=== PATIENT | female | born 1940 | race Caucasian/White ===

== ENCOUNTER 2016-07-11 19:39 | Emergency (ER) | payer OTHER ==
[2016-07-11 19:56] VITALS: BP 148/64; PULSE 93; TEMP 100.2; BMI 27.1
[2016-07-11] MEDS ORDERED: predniSONE 20 MG TABLET (UD) ONE (20:31)
[2016-07-11] MEDS ORDERED: IBUPROFEN 600 MG TABLET (FP) PO ONE ×2 (20:31→20:43)
[2016-07-11] MEDS ORDERED: diphenhydrAMINE HCL 25 MG CAPSULE (FP) PO ONE (20:31)
[2016-07-11] MEDS ORDERED: predniSONE 20 MG TABLET (UD) PO ONE (20:31)
--- NOTE | 2016-07-11 20:39 | PDOC ---
History of Present Illness - General Chief Complaint: Allergic Reaction Stated Complaint: ALLERGIC REACTION Time Seen by Provider: 07/11/16 20:24 History Source: Patient Exam Limitations: No Limitations - History of Present Illness Initial Comments: 07/11/16 20:33 76 yr female with hives to face, neck chest and back started yesterday after cleaning in the basement. Pt has no diff breathing or swallowing . Pt took benadryl 25mg at 6pm with no relief. Pt denies any food allergies , change in soaps or medications. Past History - Past Medical History Allergies/Adverse Reactions: Allergies Allergy/AdvReac Type Severity Reaction Status Date / Time No Known Allergies Allergy Verified 07/11/16 19:56 Home Medications: Ambulatory Orders Naproxen [Naprosyn -] 500 mg PO BID #30 tablet 08/13/13 Oxycodone HCl/Acetaminophen [Percocet 5-325 mg Tablet -] 1 tab PO Q6H #10 tablet 08/13/13 Unobtainable Home Med List 08/13/13 Diphenhydramine HCl [Benadryl Capsule -] 50 mg PO Q12H PRN #20 capsule 07/11/16 Prednisone [Deltasone -] 20 mg PO DAILY #7 tablet 07/11/16 Ranitidine [Zantac -] 150 mg PO DAILY #14 tablet 07/11/16 Diabetes: Yes GI Disorders: Yes (H PYLORI) HTN: Yes Hypercholesterolemia: Yes - Psycho/Social/Smoking Cessation Hx Anxiety: No Suicidal Ideation: No Smoking History: Never smoked Have you smoked in the past 12 months: No Information on smoking cessation initiated: No Hx Alcohol Use: No Drug/Substance Use Hx: No Substance Use Type: None Review of Systems - Review of Systems Able to Perform ROS?: Yes Is the patient limited German proficient: No Constitutional: No: Symptoms Reported HEENTM: No: Symptoms Reported Respiratory: No: Symptoms reported Cardiac (ROS): No: Symptoms Reported ABD/GI: No: Symptoms Reported : No: Symptoms Reported Musculoskeletal: No: Symptoms Reported Integumentary: Yes: See HPI, Pruritus, Rash *Physical Exam - Vital Signs Last Vital Signs Temp Pulse Resp BP Pulse Ox 100.2 F H 93 H 19 148/64 98 07/11/16 19:53 07/11/16 19:53 07/11/16 19:53 07/11/16 19:53 07/11/16 19:53 - Physical Exam General Appearance: Yes: Nourished, Appropriately Dressed HEENT: positive: EOMI, WES, Normal ENT Inspection, TMs Normal, Pharynx Normal Neck: positive: Supple Respiratory/Chest: positive: Lungs Clear, Normal Breath Sounds Cardiovascular: positive: Regular Rhythm, Regular Rate Gastrointestinal/Abdominal: positive: Normal Bowel Sounds, Soft Musculoskeletal: positive: Normal Inspection Extremity: positive: Normal Capillary Refill, Normal Inspection, Normal Range of Motion Integumentary: positive: Normal Color, Hives, Rash (face, neck, chest and back with hives raised red ) Neurologic: positive: Fully Oriented, Alert, Normal Mood/Affect, Normal Response , Motor Strength 5/5 Medical Decision Making - Medical Decision Making 07/11/16 22:49 cc: rash since last night itchy pt denies fever , has low grade here in ER denies feeling flu like or nausea no SOB or diff swallowing will give prednisone, benadryl strict follow up with PMD on THURSDAY return if worse avoid the heat , the past 2 days have been in the 90's pt has been outside making the rash worse. I have instructed pt to take cool shower apply cool compresses to her face. family with the pt understand the plan and all questions asked and answered. *DC/Admit/Observation/Transfer Diagnosis at time of Disposition: Hives - Discharge Dispostion Disposition: HOME Condition at time of disposition: Improved - Prescriptions Prescriptions: Diphenhydramine HCl [Benadryl Capsule -] 50 mg PO Q12H PRN #20 capsule PRN Reason: hives Prednisone [Deltasone -] 20 mg PO DAILY #7 tablet Ranitidine [Zantac -] 150 mg PO DAILY #14 tablet - Referrals Referrals: Jessica Carranza MD [Staff Physician] - - Patient Instructions Additional Instructions: follow with your doctor on THURSDAY for follow up visit Return to ER if any worse cool water to bathe avoid heat take the prescribed medication as directed
== END 2016-07-11 21:03 | disposition home or self-care (01) ==
LOC: JERFT 19:39 → SUPCPDRO 19:39 → JERFT 21:03
DX: L50.9 Urticaria, unspecified (principal); E78.00 Pure hypercholesterolemia, unspecified; E11.9 Type 2 diabetes mellitus without complications
CPT/HCPCS: 99281-25

== ENCOUNTER 2018-05-02 15:59 | Inpatient (IN) | payer OTHER ==
[2018-05-02 17:02] LABS: BASO % 0.2 % (0-2.0); EOS % 0.1 % (0-4.5); HEMATOCRIT 36.6 % (32.4-45.2); HEMOGLOBIN 12.2 GM/dL (10.7-15.3); LYMPH % 16.6 % (8-40); MCH 29.1 pg (25.7-33.7); MCHC 33.3 g/dl (32.0-36.0); MEAN CELL VOLUME 87.2 fl (80-96); MEAN PLT VOLUME 9.4 fl (7.5-11.1); MONO % 5.2 % (3.8-10.2); NEUT % 77.9 % (42.8-82.8); PLATELET COUNT 421 K/MM3 (134-434); RDW 15.5 % (11.6-15.6); WHITE BLOOD COUNT 12.9 K/mm3 (4.0-10.0)
[2018-05-02 17:15] LABS: PROTHROMBIN TIME (PATIENT) 11.8 SEC (9.7-13.0)
[2018-05-02 17:18] LABS: ACTIVATED PTT 31.2 SECONDS (25.2-36.5)
[2018-05-02 18:02] LABS: ALBUMIN 4.1 g/dl (3.4-5.0); ALK PHOS 52 U/L (45-117); ANION GAP 20 MMOL/L (8-16); BILIRUBIN,TOTAL 0.6 mg/dL (0.2-1); BLOOD UREA NITROGEN 70 mg/dL (7-18); CALCIUM 8.7 mg/dL (8.5-10.1); CHLORIDE 107 mmol/L (98-107); CO2 15 mmol/L (21-32); CREATININE 7.1 mg/dL (0.55-1.3); GLUCOSE,RANDOM 78 mg/dL (74-106); SGOT/AST 16 U/L (15-37); SGPT/ALT 23 U/L (13-61); SODIUM 142 mmol/L (136-145); TOT PROT 8.2 g/dl (6.4-8.2)
--- NOTE | 2018-05-02 18:05 | PDOC ---
History of Present Illness - General Chief Complaint: Revisit, Lab Variance Stated Complaint: ELECTROLITES HIGH Time Seen by Provider: 05/02/18 16:10 - History of Present Illness Initial Comments: 05/02/18 18:43 78 F with pmh DM, HTN, HLD and anemia presenting to ED for abnormal lab values. Pt was at [facility] today for feelings lethargic with bodyaches x 3 days. Also endorses an episode of N+V last night after attempting to eat/drink. Denies abdominal pain. Denies CP/SOB. Denies F/C. Pt went to [facility] today and had labs that showed K:5.8 Bun: 65 Creat: 6.4 wbc: 12.4 No recent change in medication or additions. No recent trauma, or known infection. Has had limited amount of urine and stool produced due to the fact that she hasn 't been eating or drinking at all for the past week. Past History - Past Medical History Allergies/Adverse Reactions: Allergies Allergy/AdvReac Type Severity Reaction Status Date / Time No Known Allergies Allergy Verified 05/02/18 16:08 Home Medications: Ambulatory Orders Alendronate Sodium [Binosto] 70 mg PO WEEKLY 05/02/18 Aspirin [Adult Aspirin Regimen] 81 mg PO DAILY 05/02/18 Atorvastatin Calcium [Lipitor] 20 mg PO HS 05/02/18 Cholecalciferol (Vitamin D3) [D-2000] 2,000 unit PO DAILY 05/02/18 Dapagliflozin Propanediol [Farxiga] 10 mg PO DAILY 05/02/18 Ferrous Sulfate [Feosol] 325 mg PO DAILY 05/02/18 Fluticasone Prop 0.05% Nasal [Flonase -] 1 - 2 spray NS BID 05/02/18 Glyburide/Metformin HCl [Glyburide-Metformin 5-500 mg] 2 tab PO BID 05/02/18 [place]-3 Fatty Acids/Fish Oil [Fish Oil 1,000 mg Capsule] 1 each PO DAILY Pantoprazole Sodium [Protonix] 40 mg PO DAILY 05/02/18 Sitagliptin Phosphate [Januvia] 100 mg PO DAILY 05/02/18 Valsartan/Hydrochlorothiazide [Valsartan-Hctz 80-12.5 mg Tab] 1 each PO DAILY COPD: No Diabetes: Yes GI Disorders: Yes (H PYLORI) HTN: Yes Hypercholesterolemia: Yes - Suicide/Smoking/Psychosocial Hx Smoking History: Never smoked Have you smoked in the past 12 months: No Hx Alcohol Use: No Drug/Substance Use Hx: No Substance Use Type: None Review of Systems - Review of Systems Able to Perform ROS?: Yes Is the patient limited Lao proficient: No Constitutional: Yes: See HPI HEENTM: No: Symptoms Reported Respiratory: No: Symptoms reported Cardiac (ROS): No: Symptoms Reported ABD/GI: Yes: See HPI : No: Symptoms Reported Musculoskeletal: No: Symptoms Reported Integumentary: No: Symptoms Reported Neurological: No: Symptoms reported All Other Systems: Reviewed and Negative *Physical Exam - Vital Signs Last Vital Signs Temp Pulse Resp BP Pulse Ox 98 F 95 H 18 98/52 L 100 05/02/18 16:02 05/02/18 16:02 05/02/18 16:02 05/02/18 16:02 05/02/18 16:02 - Physical Exam General Appearance: Yes: Nourished, Appropriately Dressed, Apparent Distress HEENT: positive: EOMI, WES, Normal ENT Inspection Respiratory/Chest: positive: Lungs Clear, Normal Breath Sounds. negative: Chest Tender, Respiratory Distress Cardiovascular: positive: Regular Rhythm, S1, S2, Tachycardia Gastrointestinal/Abdominal: positive: Normal Bowel Sounds, Soft, Protuberent. negative: Tender Musculoskeletal: positive: Normal Inspection. negative: CVA Tenderness Extremity: positive: Normal Capillary Refill, Normal Inspection, Normal Range of Motion Integumentary: positive: Normal Color, Dry, Warm Neurologic: positive: Fully Oriented, Alert, Normal Mood/Affect, Normal Response , Motor Strength 5/5 Moderate Sedation - Procedure Monitoring Vital Signs: Procedure Monitoring Vital Signs Temperature 98 F 05/02/18 16:02 Pulse Rate 95 H 05/02/18 16:02 Respiratory Rate 18 05/02/18 16:02 Blood Pressure 98/52 L 05/02/18 16:02 O2 Sat by Pulse Oximetry (%) 100 05/02/18 16:02 ED Treatment Course - LABORATORY CBC & Chemistry Diagram: 05/02/18 16:50 05/02/18 16:50 - ADDITIONAL ORDERS Additional order review: Laboratory Results 05/02/18 05/02/18 16:50 16:50 PT with INR 11.80 INR 1.00 PTT (Actin FS) 31.2 Sodium 142 Chloride 107 Carbon Dioxide 15 L Anion Gap 20 H BUN 70 H Creatinine 7.1 H Creat Clearance w eGFR 5.56 Random Glucose 78 Calcium 8.7 Total Bilirubin 0.6 AST 16 ALT 23 Alkaline Phosphatase 52 Creatine Kinase 88 Troponin I < 0.02 Total Protein 8.2 Albumin 4.1 05/02/18 16:50 RBC 4.20 MCV 87.2 MCHC 33.3 RDW 15.5 D MPV 9.4 Neutrophils % 77.9 Lymphocytes % 16.6 Monocytes % 5.2 Eosinophils % 0.1 Basophils % 0.2 Medical Decision Making - Medical Decision Making 05/02/18 18:55 Potassium, creatinine and BUn even more elevated than clinic results from earlier today. EKG: Normal sinus rhythm, possible left atrial enlargement. Unknown source of AUGUSTINE: medication vs infection vs diabetes/metabolic? 05/02/18 19:15 UTI present, treating with Ceftriaxone, fluids. Even though ekg is unremarkable, we will give calcium gluconate and insulin with fluids. Will obtain renal us Will admit to observation med surg to investigate source of augustine Patient signed out to Dr. Ordonez *DC/Admit/Observation/Transfer Diagnosis at time of Disposition: AUGUSTINE (acute kidney injury) - Referrals - Patient Instructions - Post Discharge Activity
[2018-05-02 18:19] LABS: URINE APPEARANCE SLCLOUDY; URINE BILIRUBIN NEGATIVE (<2.0 mg/dL); URINE COLOR STRAW; URINE GLUCOSE (UA) NEGATIVE (NEGATIVE); URINE KETONE NEGATIVE (NEGATIVE); URINE LEUK ESTERASE 2+ (NEGATIVE); URINE NITRITE NEGATIVE (NEGATIVE); URINE PROTEIN 2+ (NEGATIVE); URINE UROBILINOGEN NEGATIVE mg/dL (0.2-1.0)
[2018-05-02] MEDS ORDERED: SODIUM CHLORIDE 1,000 ML IV STA (18:20)
[2018-05-02 18:24] LABS: EPI CELLS RARE /HPF (FEW)
[2018-05-02] MEDS ORDERED: CALCIUM GLUCONATE 10% - 1,000 MG/10 ML VIAL IVPUSH ONE (18:34)
[2018-05-02 18:35] LABS: POTASSIUM 6.1 mmol/L (3.5-5.1)
--- NOTE | 2018-05-02 18:35 | PDOC ---
Attending Attestation - Resident Resident Name: LaiRigo - ED Attending Attestation I have performed the following: I have examined & evaluated the patient, The case was reviewed & discussed with the resident, I agree w/resident's findings & plan, Exceptions are as noted - HPI HPI: 05/02/18 18:32 78 F with h/o DM, HTN, HLD presenting to ED for abnormal lab values. Pt was at [facility] today for "influenza like symptoms". She states that she has been feeling lethargic with bodyaches x 3 days. Also endorses an episode of N+V last night. Denies abdominal pain. Denies CP/SOB. Denies F/C. Pt went to [facility] today and had labs that showed a Cr of 6.0. Pt has no h/o kidney disease. - Physicial Exam PE: 05/02/18 18:33 GENERAL: Awake, alert, and fully oriented, in no acute distress. HEAD: No signs of trauma EYES: PERRLA, EOMI, sclera anicteric, conjunctiva clear ENT: Auricles normal inspection, hearing grossly normal, nares patent, oropharynx clear without exudates. Moist mucosa NECK: Nontender, no stepoffs, Normal ROM, supple, no lymphadenopathy, JVD, or masses LUNGS: Breath sounds equal, clear to auscultation bilaterally. No wheezes, and no crackles HEART: Regular rate and rhythm, normal S1 and S2, no murmurs, rubs or gallops ABDOMEN: Soft, nontender, normoactive bowel sounds. No guarding, no rebound. No masses EXTREMITIES: Normal range of motion, no edema. No clubbing or cyanosis. No cords, erythema, or tenderness NEUROLOGICAL: Cranial nerves II through XII intact. 5/5 strength and sensation in all extremities, Normal speech, normal gait, normal cerebellar function SKIN: Warm, Dry, normal turgor, no rashes or lesions noted. - Medical Decision Making 05/02/18 18:33 78 F with weakness, bodyaches, found to have new renal failure. Pt with no h/o kidney disease. Has not taken any new medications. - Labs, UA - EKG - IVF - Renal c/s 05/02/18 18:46 Labs notable for Cr 7 K 6.1 EKG without peaked T waves Calcium gluc, insulin, D50 ordered Will consult renal, admit to hospitalist
[2018-05-02] MEDS ORDERED: INSULIN REGULAR HUMAN 100 UNITS/ML *VIAL IVPUSH ONE (18:41)
[2018-05-02] MEDS ORDERED: DEXTROSE 50%-WATER - 25 GM/50 ML VIAL IVPUSH ONE (18:46)
[2018-05-02] MEDS ORDERED: DEXTROSE 50%-WATER - 25 GM/50 ML VIAL ONE (18:47)
[2018-05-02] MEDS ORDERED: CALCIUM GLUCONATE 10% - 1,000 MG/10 ML VIAL ONE (18:48)
[2018-05-02] MEDS ORDERED: INSULIN REGULAR HUMAN 100 UNITS/ML *VIAL ONE (18:48)
[2018-05-02] MEDS ORDERED: CEFTRIAXONE 1 GM/50 ML BAG ONE (18:48)
--- NOTE | 2018-05-02 19:35 | HP ---
CHIEF COMPLAINT: malaise, failure to thrive PCP: ludy HISTORY OF PRESENT ILLNESS: 78 F with presents to hospital for abnormal lab values. Was seen at [facility] for "influenza like symptoms". +lethargy, loss of appetite, bodyaches. Also endorses an episode of N+V last night. Denies CP/SOB. Labs showed Cr of 6.0. Pt has no h/o kidney disease. ER course was notable for: (1) EKG (2) IV fluid (3) Recent Travel: no PAST MEDICAL HISTORY: DM, HTN, HLD PAST SURGICAL HISTORY: denied Social History: Smoking:no Alcohol:no Drugs: no Family History: parents with heart disease Allergies No Known Allergies Allergy (Verified 05/02/18 16:08) HOME MEDICATIONS: Home Medications Medication Instructions Recorded Alendronate Sodium [Binosto] 70 mg PO WEEKLY 05/02/18 Aspirin [Adult Aspirin Regimen] 81 mg PO DAILY 05/02/18 Atorvastatin Calcium [Lipitor] 20 mg PO HS 05/02/18 Cholecalciferol (Vitamin D3) 2,000 unit PO DAILY 05/02/18 [D-2000] Dapagliflozin Propanediol [Farxiga] 10 mg PO DAILY 05/02/18 Ferrous Sulfate [Feosol] 325 mg PO DAILY 05/02/18 Fluticasone Prop 0.05% Nasal 1 - 2 spray NS BID 05/02/18 [Flonase -] Glyburide/Metformin HCl 2 tab PO BID 05/02/18 [Glyburide-Metformin 5-500 mg] Section-3 Fatty Acids/Fish Oil [Fish 1 each PO DAILY 05/02/18 Oil 1,000 mg Capsule] Pantoprazole Sodium [Protonix] 40 mg PO DAILY 05/02/18 Sitagliptin Phosphate [Januvia] 100 mg PO DAILY 05/02/18 Valsartan/Hydrochlorothiazide 1 each PO DAILY 05/02/18 [Valsartan-Hctz 80-12.5 mg Tab] REVIEW OF SYSTEMS CONSTITUTIONAL: Absent: fever, chills, diaphoresis, weight change Present- , generalized weakness, malaise, loss of appetite HEENT: Absent: rhinorrhea, nasal congestion, throat pain, throat swelling, difficulty swallowing, mouth swelling, ear pain, eye pain, visual changes CARDIOVASCULAR: Absent: chest pain, syncope, palpitations, irregular heart rate, lightheadedness , peripheral edema RESPIRATORY: Absent: cough, shortness of breath, dyspnea with exertion, orthopnea, wheezing, stridor, hemoptysis GASTROINTESTINAL: Absent: abdominal pain, abdominal distension,diarrhea, constipation, melena, hematochezia present- nausea, vomiting, GENITOURINARY: Absent: dysuria, frequency, urgency, hesitancy, hematuria, flank pain, genital pain MUSCULOSKELETAL: Absent: myalgia, arthralgia, joint swelling, back pain, neck pain SKIN: Absent: rash, itching, pallor HEMATOLOGIC/IMMUNOLOGIC: Absent: easy bleeding, easy bruising, lymphadenopathy, frequent infections ENDOCRINE: Absent: unexplained weight gain, unexplained weight loss, heat intolerance, cold intolerance NEUROLOGIC: Absent: headache, focal weakness or paresthesias, dizziness, unsteady gait, seizure, mental status changes, bladder or bowel incontinence PSYCHIATRIC: Absent: anxiety, depression, suicidal or homicidal ideation, hallucinations. PHYSICAL EXAMINATION Vital Signs - 24 hr 05/02/18 05/02/18 16:02 18:36 Temperature 98 F Pulse Rate 95 H Pulse Rate [ 87 Left Radial] Respiratory 18 Rate Blood Pressure 98/52 L Blood Pressure 166/80 [Left Arm] O2 Sat by Pulse 100 99 Oximetry (%) GENERAL: Awake, alert, and fully oriented, obese, nontoxic appearing HEAD: Normal with no signs of trauma. EYES: Pupils equal, round and reactive to light, extraocular movements intact, sclera anicteric, conjunctiva clear. No lid lag. EARS, NOSE, THROAT: Ears normal, nares patent, oropharynx clear without exudates. Moist mucous membranes. NECK: Normal range of motion, supple without lymphadenopathy, JVD, or masses. LUNGS: Breath sounds equal, clear to auscultation bilaterally. No wheezes, and no crackles. No accessory muscle use. HEART: Regular rate and rhythm, normal S1 and S2 without murmur, rub or gallop. ABDOMEN: Soft, nontender, not distended, normoactive bowel sounds, no guarding, no rebound, no masses. No hepatomegaly or splenomegaly. MUSCULOSKELETAL: Normal range of motion at all joints. No bony deformities or tenderness. No CVA tenderness. UPPER EXTREMITIES: 2+ pulses, warm, well-perfused. No cyanosis. No clubbing. No peripheral edema. LOWER EXTREMITIES: 2+ pulses, warm, well-perfused. No calf tenderness. No peripheral edema. NEUROLOGICAL: Cranial nerves II-XII intact. Normal speech. Normal gait. PSYCHIATRIC: Cooperative. Good eye contact. Appropriate mood and affect. SKIN: Warm, dry, normal turgor, no rashes or lesions noted, normal capillary refill. Laboratory Results - last 24 hr 05/02/18 05/02/18 05/02/18 16:50 16:50 16:50 WBC 12.9 H RBC 4.20 Hgb 12.2 Hct 36.6 MCV 87.2 MCH 29.1 MCHC 33.3 RDW 15.5 D Plt Count 421 D MPV 9.4 Absolute Neuts (auto) 10.0 H Neutrophils % 77.9 Lymphocytes % 16.6 Monocytes % 5.2 Eosinophils % 0.1 Basophils % 0.2 Nucleated RBC % 0 PT with INR 11.80 INR 1.00 PTT (Actin FS) 31.2 Sodium 142 Potassium 6.1 H* Chloride 107 Carbon Dioxide 15 L Anion Gap 20 H BUN 70 H Creatinine 7.1 H Creat Clearance w eGFR 5.56 POC Glucometer Random Glucose 78 Calcium 8.7 Total Bilirubin 0.6 AST 16 ALT 23 Alkaline Phosphatase 52 Creatine Kinase 88 Troponin I < 0.02 Total Protein 8.2 Albumin 4.1 Urine Color Urine Appearance Urine pH Ur Specific Mallory Urine Protein Urine Glucose (UA) Urine Ketones Urine Blood Urine Nitrite Urine Bilirubin Urine Urobilinogen Ur Leukocyte Esterase Urine WBC (Auto) Urine RBC (Auto) Ur Epithelial Cells 05/02/18 05/02/18 17:21 18:55 WBC RBC Hgb Hct MCV MCH MCHC RDW Plt Count MPV Absolute Neuts (auto) Neutrophils % Lymphocytes % Monocytes % Eosinophils % Basophils % Nucleated RBC % PT with INR INR PTT (Actin FS) Sodium Potassium Chloride Carbon Dioxide Anion Gap BUN Creatinine Creat Clearance w eGFR POC Glucometer 75 Random Glucose Calcium Total Bilirubin AST ALT Alkaline Phosphatase Creatine Kinase Troponin I Total Protein Albumin Urine Color Straw Urine Appearance Slcloudy Urine pH 5.0 Ur Specific Mallory 1.010 Urine Protein 2+ H Urine Glucose (UA) Negative Urine Ketones Negative Urine Blood 1+ H Urine Nitrite Negative Urine Bilirubin Negative Urine Urobilinogen Negative Ur Leukocyte Esterase 2+ H Urine WBC (Auto) 27 Urine RBC (Auto) 2 Ur Epithelial Cells Rare Imaging reviewed ekg with no evidence of hyperkalemia ASSESSMENT/PLAN: #Acute Renal Failure - uncertain cause -admit to telemetry -send urine lytes -urine osm -serum osm -i/o -daily weights -chatterjee catheter -avoid nephrotoxins -renal u/s -renal consult -IV fluid hydration -bed rest -fall precautions #Hyperkalemia - likely secondary to acute renal failure, no ekg changes -kayexale PO -monitor on security monitor -insulin sc -D50 IV -repeat potassium #DM -novolog sliding scale -diabetic diet -a1c #HTN- -hold ARB due to renal failure #HLD -atorvastatin #DVT ppx- heparin sc Visit type - Emergency Visit Emergency Visit: Yes ED Registration Date: 05/02/18 Care time: The patient presented to the Emergency Department on the above date and was hospitalized for further evaluation of their emergent condition. - New Patient This patient is new to me today: Yes Date on this admission: 05/03/18 - Critical Care Critical Care patient: No
[2018-05-02] MEDS ORDERED: SODIUM CHLORIDE 1,000 ML IV SCH (19:45)
[2018-05-02] MEDS ORDERED: PATIENT'S OWN MEDICATION (NON-FORMULARY) (Alendronate Sodium [Binosto] 70 MG) PO SCH (19:45)
[2018-05-02] MEDS: INSULIN SLIDING SCALE (NOVOLOG) 1 VIAL SQ SCH (22:00)
[2018-05-02 22:13] LABS: ALBUMIN 3.5 g/dl (3.4-5.0); ALK PHOS 44 U/L (45-117); ANION GAP 17 MMOL/L (8-16); BILIRUBIN,TOTAL 0.7 mg/dL (0.2-1); BLOOD UREA NITROGEN 69 mg/dL (7-18); CALCIUM 8.9 mg/dL (8.5-10.1); CHLORIDE 104 mmol/L (98-107); CO2 14 mmol/L (21-32); CREATININE 7.1 mg/dL (0.55-1.3); GLUCOSE,RANDOM 68 mg/dL (74-106); N-TERMINAL BNP 4738.8 pg/ml (5-450); POTASSIUM 5.9 mmol/L (3.5-5.1); SGOT/AST 13 U/L (15-37); SGPT/ALT 20 U/L (13-61); SODIUM 134 mmol/L (136-145); TOT PROT 7.1 g/dl (6.4-8.2)
[2018-05-02] MEDS ORDERED: HEPARIN NA (PORCINE) 5,000 UNITS/ML 1ML VIAL ONE (22:26)
[2018-05-02] MEDS ORDERED: ATORVASTATIN CA 10 MG TABLET (FP) ONE (22:26)
[2018-05-02] MEDS: HEPARIN NA (PORCINE) 5,000 UNITS/ML 1ML VIAL SQ SCH (22:29)
[2018-05-02] MEDS: ATORVASTATIN CA 20 MG TABLET (FP) PO SCH (22:29)
[2018-05-03] MEDS ORDERED: DEXTROSE 50%-WATER - 25 GM/50 ML VIAL IVPUSH ONE ×4 (00:06→12:54)
[2018-05-03] MEDS ORDERED: SODIUM POLYSTYRENE SULFONATE 15 GM/60 ML BOTTLE PO ONE ×2 (00:07→10:28)
[2018-05-03] MEDS ORDERED: Insulin (LOG) Aspart 100 UNITS/ML VIAL IV ONE ×2 (00:31→06:22)
[2018-05-03] MEDS ORDERED: DEXTROSE 50%-WATER - 25 GM/50 ML VIAL ONE ×4 (01:05→13:05)
[2018-05-03] MEDS ORDERED: SODIUM POLYSTYRENE SULFONATE 15 GM/60 ML BOTTLE ONE ×2 (01:06→10:45)
[2018-05-03] MEDS ORDERED: INSULIN (NOVOLOG) ASPART 100 UNITS/ML 10ML VIAL ONE ×2 (01:06→06:47)
[2018-05-03] MEDS ORDERED: SODIUM CHLORIDE 0.45% IV SCH (01:45)
[2018-05-03] MEDS ORDERED: SODIUM BICARBONATE 8.4% IV SCH (01:45)
[2018-05-03] MEDS ORDERED: SODIUM CHLORIDE 0.45% 1,000 ML with SODIUM BICARBONATE 8.4% - 50 MEQ IV SCH (02:15)
[2018-05-03 05:44] LABS: BASO % 0.3 % (0-2.0); HEMATOCRIT 34.2 % (32.4-45.2); HEMOGLOBIN 11.3 GM/dL (10.7-15.3); LYMPH % 11.6 % (8-40); MCH 28.6 pg (25.7-33.7); MCHC 33.1 g/dl (32.0-36.0); MEAN CELL VOLUME 86.2 fl (80-96); MEAN PLT VOLUME 9.1 fl (7.5-11.1); NEUT % 83.1 % (42.8-82.8); PLATELET COUNT 433 K/MM3 (134-434); RBC 3.97 M/mm3 (3.60-5.2); RDW 15.6 % (11.6-15.6); WHITE BLOOD COUNT 12.3 K/mm3 (4.0-10.0)
[2018-05-03 06:10] LABS: ALBUMIN 3.4 g/dl (3.4-5.0); ALK PHOS 46 U/L (45-117); ANION GAP 17 MMOL/L (8-16); BILIRUBIN,TOTAL 0.6 mg/dL (0.2-1); BLOOD UREA NITROGEN 77 mg/dL (7-18); CALCIUM 9.1 mg/dL (8.5-10.1); CHLORIDE 104 mmol/L (98-107); CO2 14 mmol/L (21-32); GLUCOSE,RANDOM 101 mg/dL (74-106); MAGNESIUM 2.5 mg/dL (1.8-2.4); PHOSPHOROUS 5.8 mg/dL (2.5-4.9); SGOT/AST 13 U/L (15-37); SGPT/ALT 20 U/L (13-61); SODIUM 135 mmol/L (136-145)
[2018-05-03 06:13] LABS: CREATININE 7.5 mg/dL (0.55-1.3); POTASSIUM 6.6 mmol/L (3.5-5.1)
[2018-05-03] MEDS ORDERED: CALCIUM GLUCONATE 10% - 1,000 MG/10 ML VIAL IVPUSH ONE (06:20)
[2018-05-03] MEDS ORDERED: ALBUTEROL SO4 0.083% IH SOL 2.5 MG/3 ML VIAL.NEB. NEB ONE ×4 (06:23→13:05)
[2018-05-03] MEDS ORDERED: DEXTROSE 5%-WATER - 1,000 ML with SODIUM BICARBONATE 8.4% - 150 MEQ IV SCH ×3 (06:45→13:50)
[2018-05-03] MEDS ORDERED: CALCIUM GLUCONATE 10% - 1,000 MG/10 ML VIAL ONE (06:47)
[2018-05-03] MEDS: INSULIN SLIDING SCALE (NOVOLOG) 1 VIAL SQ SCH ×4 (09:00→21:22)
--- NOTE | 2018-05-03 10:31 | EKG ---
Test Reason : Blood Pressure : / mmHG Vent. Rate : 078 BPM Atrial Rate : 078 BPM P-R Int : 156 ms QRS Dur : 078 ms QT Int : 380 ms P-R-T Axes : 061 071 031 degrees QTc Int : 433 ms NORMAL SINUS RHYTHM WITH SINUS ARRHYTHMIA LOW VOLTAGE QRS CANNOT RULE OUT SEPTAL INFARCT , AGE UNDETERMINED ABNORMAL ECG WHEN COMPARED WITH ECG OF 29-JUN-2001 13:08, SEPTAL INFARCT IS NOW PRESENT T WAVE VARIATION Confirmed by RAMILA ALMEIDA, KAYLIE ([id number]) on 05/03/2018 10:30:48 AM Referred By: Confirmed By:KAYLIE MCGRATH MD
[2018-05-03] MEDS ORDERED: PT OWN MED DRAWER 7, Y5N ONE (10:39)
--- NOTE | 2018-05-03 10:39 | PN ---
Progress Note, Physician Chief Complaint: patient seen and examined awake and alert in ER came in for abnormal labs elevated K and bun/cr got kayxelate, calcium, albuterol, dextrose - Current Medication List Current Medications: Active Medications Aspirin (Ecotrin -) 81 mg PO DAILY [facility] Atorvastatin Calcium (Lipitor -) 20 mg PO HS [facility] Last Admin: 05/02/18 22:29 Dose: 20 mg Cholecalciferol (Vitamin D3 -) 2,000 unit PO DAILY [facility] Ferrous Sulfate (Feosol -) 325 mg PO DAILY [facility] Heparin Sodium (Porcine) (Heparin -) 5,000 unit SQ BID [facility] Last Admin: 05/02/18 22:29 Dose: 5,000 unit Sodium Chloride (Normal Saline -) 1,000 mls @ 75 mls/hr IV ASDIR [facility] Last Admin: 05/02/18 21:42 Dose: 75 mls/hr Sodium Bicarbonate 150 meq/ (Dextrose) 1,150 mls @ 75 mls/hr IV ASDIR [facility] Last Admin: 05/03/18 06:59 Dose: 75 mls/hr Insulin Aspart (Novolog Vial Sliding Scale -) 1 vial SQ ACHS [facility]; Protocol Last Admin: 05/03/18 09:00 Dose: Not Given [id number]-Ulop Ethyl Esters (Lovaza -) 1 gm PO DAILY [facility] Pantoprazole Sodium (Protonix -) 40 mg PO DAILY [facility] - Objective Vital Signs: Vital Signs Temperature 98.4 F 05/03/18 08:48 Pulse Rate 84 05/03/18 08:48 Respiratory Rate 16 05/03/18 08:48 Blood Pressure 150/66 05/03/18 08:48 O2 Sat by Pulse Oximetry (%) 95 05/03/18 08:48 Constitutional: Yes: Calm Cardiovascular: Yes: Regular Rate and Rhythm, S1, S2 Respiratory: Yes: CTA Bilaterally Gastrointestinal: Yes: Normal Bowel Sounds, Soft Genitourinary: Yes: Chatterjee Present Edema: Yes Neurological: Yes: Alert, Oriented Labs: CBC, BMP 05/03/18 05:28 05/03/18 05:28 INR, PTT INR 1.00 (0.83-1.09) 05/02/18 16:50 Problem List - Problems (1) AUGUSTINE (acute kidney injury) Assessment/Plan: renal sono noted-morphologically normal kidneys renal consult ivf chatterjee cath repeat bmp ordered to see K- stil elevated- elevated lactic acid and hyperkalemia give another dose of kayxelate bicarbonate HD today, vascular to put in shiley Code(s): N17.9 - ACUTE KIDNEY FAILURE, UNSPECIFIED (2) Leukocytosis Assessment/Plan: possible uti rocephin awaitng cultures Code(s): D72.829 - ELEVATED WHITE BLOOD CELL COUNT, UNSPECIFIED (3) HLD (hyperlipidemia) Assessment/Plan: statin check lipid panel Code(s): E78.5 - HYPERLIPIDEMIA, UNSPECIFIED (4) Diabetes Assessment/Plan: bgm sliding scale hold oral hypoglycemic check hgba1c Code(s): E11.9 - TYPE 2 DIABETES MELLITUS WITHOUT COMPLICATIONS Qualifiers: Diabetes mellitus type: type 2 (5) HTN (hypertension) Assessment/Plan: hold ARB and thiazide diuretic given increase bun/cr start norvasc echo orderd to look for wal motion abnormality/pericardial effusion Code(s): I10 - ESSENTIAL (PRIMARY) HYPERTENSION
[2018-05-03] MEDS: HEPARIN NA (PORCINE) 5,000 UNITS/ML 1ML VIAL SQ SCH ×2 (10:42→21:22)
[2018-05-03] MEDS: FERROUS SO4 325 MG TABLET (FP) PO SCH (10:42)
[2018-05-03] MEDS: ASPIRIN COATED 81 MG TABLET.EC PO SCH (10:42)
[2018-05-03] MEDS: OMEGA-3 ACID ETHYL ESTERS (FATTY-ACIDS) 1 GM CAPSULE (FP) PO SCH (10:43)
[2018-05-03] MEDS: PANTOPRAZOLE 40 MG TABLET (FP) PO SCH (10:43)
[2018-05-03] MEDS: CHOLECALCIFEROL (VIT D3) 1,000 UNIT (25 MCG) TABLET PO SCH (10:43)
--- NOTE | 2018-05-03 11:21 | EKG ---
Test Reason : Blood Pressure : / mmHG Vent. Rate : 087 BPM Atrial Rate : 087 BPM P-R Int : 148 ms QRS Dur : 068 ms QT Int : 368 ms P-R-T Axes : 072 055 041 degrees QTc Int : 442 ms NORMAL SINUS RHYTHM POSSIBLE LEFT ATRIAL ENLARGEMENT LOW VOLTAGE QRS BORDERLINE ECG WHEN COMPARED WITH ECG OF 29-JUN-2001 13:08, NO SIGNIFICANT CHANGE WAS FOUND Confirmed by RAMILA ALMEIDA, KAYLIE ([id number]) on 05/03/2018 11:21:33 AM Referred By: Confirmed By:KAYLIE MCGRATH MD
[2018-05-03 12:08] LABS: ANION GAP 18 MMOL/L (8-16); BLOOD UREA NITROGEN 79 mg/dL (7-18); CALCIUM 9.4 mg/dL (8.5-10.1); CHLORIDE 102 mmol/L (98-107); CO2 14 mmol/L (21-32); GLUCOSE,RANDOM 106 mg/dL (74-106); SODIUM 133 mmol/L (136-145)
[2018-05-03 12:26] LABS: CREATININE 7.7 mg/dL (0.55-1.3); POTASSIUM 6.4 mmol/L (3.5-5.1)
--- NOTE | 2018-05-03 12:48 | CONSULT ---
Consult Consult Specialty:: Nephrology Reason for Consultation:: RAHSAUN - History of Present Illness Chief Complaint: sent in for abnormal labs History of Present Illness: Pt is an 78 year old female with pmhx of DM, HTN, anemia and HLD who was sent in for abnormal labs. She was found to be in acute renal failure. She complains of lethargy and generalized body aches for the last 4 days. She also complains of poor po intake. She did have a few episodes of vomiting. She denies diarrhea. She denies dysuria or hematuria. She denies nsaid use. She denies chest pain of shortness of breath. She denies fevers or chills. She was also found to be hyperkalemic. She was on valsartan and a thiazide at home. - History Source History Provided By: Patient - Past Medical History Cardio/Vascular: Yes: HTN, Hyperlipdemia Heme/Onc: Yes: Anemia Endocrine: Yes: Diabetes Mellitus - Alcohol/Substance Use Hx Alcohol Use: No - Smoking History Smoking history: Never smoked Have you smoked in the past 12 months: No Home Medications - Allergies Allergies/Adverse Reactions: Allergies Allergy/AdvReac Type Severity Reaction Status Date / Time No Known Allergies Allergy Verified 05/02/18 16:08 - Home Medications Home Medications: Ambulatory Orders Alendronate Sodium [Binosto] 70 mg PO WEEKLY 05/02/18 Aspirin [Adult Aspirin Regimen] 81 mg PO DAILY 05/02/18 Atorvastatin Calcium [Lipitor] 20 mg PO HS 05/02/18 Cholecalciferol (Vitamin D3) [D-2000] 2,000 unit PO DAILY 05/02/18 Dapagliflozin Propanediol [Farxiga] 10 mg PO DAILY 05/02/18 Ferrous Sulfate [Feosol] 325 mg PO DAILY 05/02/18 Fluticasone Prop 0.05% Nasal [Flonase -] 1 - 2 spray NS BID 05/02/18 Glyburide/Metformin HCl [Glyburide-Metformin 5-500 mg] 2 tab PO BID 05/02/18 [place]-3 Fatty Acids/Fish Oil [Fish Oil 1,000 mg Capsule] 1 each PO DAILY Pantoprazole Sodium [Protonix] 40 mg PO DAILY 05/02/18 Sitagliptin Phosphate [Januvia] 100 mg PO DAILY 05/02/18 Valsartan/Hydrochlorothiazide [Valsartan-Hctz 80-12.5 mg Tab] 1 each PO DAILY Family Disease History - Family Disease History Family History: Denies Review of Systems - Review of Systems Constitutional: reports: Loss of Appetite, Malaise. denies: Chills Eyes: reports: No Symptoms HENT: reports: No Symptoms Neck: reports: No Symptoms Cardiovascular: reports: No Symptoms Respiratory: reports: No Symptoms Gastrointestinal: reports: No Symptoms Genitourinary: reports: No Symptoms Musculoskeletal: reports: Muscle Weakness Integumentary: reports: No Symptoms Neurological: reports: No Symptoms Endocrine: reports: No Symptoms Hematology/Lymphatic: reports: No Symptoms Psychiatric: reports: No Symptoms Physical Exam Vital Signs: Vital Signs Temperature 97.3 F L 05/03/18 11:49 Pulse Rate 80 05/03/18 11:49 Respiratory Rate 16 05/03/18 11:49 Blood Pressure 142/65 05/03/18 11:49 O2 Sat by Pulse Oximetry (%) 99 05/03/18 11:49 Constitutional: Yes: Calm Eyes: Yes: Conjunctiva Clear HENT: Yes: Atraumatic Cardiovascular: Yes: S1, S2 Respiratory: Yes: CTA Bilaterally Gastrointestinal: Yes: Soft, Abdomen, Obese Renal/: Yes: Jacques Present Musculoskeletal: Yes: WNL Edema: No Neurological: Yes: Oriented Psychiatric: Yes: Oriented Labs: CBC, BMP 05/03/18 05:28 05/03/18 11:30 Laboratory Tests 05/02/18 05/03/18 05/03/18 17:21 02:00 05:28 Sodium Potassium 6.6 H* Carbon Dioxide Creatinine 7.5 H* Urine Protein 2+ H Urine Blood 1+ H Ur Random Sodium 96 05/03/18 11:30 Sodium 133 L Potassium 6.4 H* Carbon Dioxide 14 L Creatinine 7.7 H* Urine Protein Urine Blood Ur Random Sodium Imaging - Results X-ray: Report Reviewed Ultrasound: Report Reviewed Problem List - Problems (1) Hyperkalemia Code(s): E87.5 - HYPERKALEMIA (2) RASHAUN (acute kidney injury) Code(s): N17.9 - ACUTE KIDNEY FAILURE, UNSPECIFIED (3) Diabetes Code(s): E11.9 - TYPE 2 DIABETES MELLITUS WITHOUT COMPLICATIONS Qualifiers: Diabetes mellitus type: type 2 (4) HLD (hyperlipidemia) Code(s): E78.5 - HYPERLIPIDEMIA, UNSPECIFIED Assessment/Plan Current Medications Generic Name Dose Route Start Last Admin Trade Name Eric PRN Reason Stop Dose Admin Aspirin 81 mg 05/03/18 10:00 05/03/18 10:42 Ecotrin - PO 81 mg DAILY SHELBY Administration Atorvastatin Calcium 20 mg 05/02/18 22:00 05/02/18 22:29 Lipitor - PO 20 mg HS SHELBY Administration Cholecalciferol 2,000 unit 05/03/18 10:00 05/03/18 10:43 Vitamin D3 - PO 2,000 unit DAILY SHELBY Administration Ferrous Sulfate 325 mg 05/03/18 10:00 05/03/18 10:42 Feosol - PO 325 mg DAILY SHELBY Administration Heparin Sodium (Porcine) 5,000 unit 05/02/18 22:00 05/03/18 10:42 Heparin - SQ 5,000 unit BID SHELBY Administration Sodium Chloride 1,000 mls @ 75 mls/hr 05/02/18 19:45 05/02/18 21:42 Normal Saline - IV 75 mls/hr ASDIR SHELBY Administration Sodium Bicarbonate 150 meq/ 1,150 mls @ 75 mls/hr 05/03/18 06:45 05/03/18 06: 59 Dextrose IV 75 mls/hr ASDIR SHELBY Administration Insulin Aspart 1 vial 05/02/18 22:00 05/03/18 11:35 Novolog Vial Sliding Scale - SQ Not Given ACHS SHELBY Protocol [id number] Ethyl Esters 1 gm 05/03/18 10:00 05/03/18 10:43 Lovaza - PO 1 gm DAILY SHELBY Administration Pantoprazole Sodium 40 mg 05/03/18 10:00 05/03/18 10:43 Protonix - PO 40 mg DAILY SHELBY Administration Impression 1. RASHAUN 2. hyperkalemia 3. DM 4. HTN 5. anemia 6. HLD 7. metabolic acidosis Plan - pt is persistently hyperkalemic - recommend HD, spoke to pt and she asked me to speak to her son, I called her son and he is coming to the hospital - will treat potassium medically until they decide about HD - change fluids to d5w with 3 amps of bicarb - stop arb and thiazide - stop metformin - check lactic acid level - will send workup for rashaun, etiology unclear for now Dr Segovia
[2018-05-03] MEDS ORDERED: SODIUM BICARBONATE 8.4% 50 MEQ/50 ML DISP.SYRIN IVPUSH ONE (12:54)
[2018-05-03] MEDS ORDERED: INSULIN REGULAR HUMAN 100 UNITS/ML *VIAL IVPUSH ONE (12:54)
[2018-05-03] MEDS ORDERED: SODIUM BICARBONATE 8.4% - 50 ML ONE (13:05)
[2018-05-03] MEDS ORDERED: INSULIN REGULAR HUMAN 100 UNITS/ML *VIAL ONE (13:06)
[2018-05-03] MEDS ORDERED: SODIUM BICARBONATE 8.4% - 150 MEQ in DEXTROSE 5%-WATER - 1,000 ML IV SCH ×3 (14:00→23:50)
--- NOTE | 2018-05-03 14:06 | CON.CARD ---
Consult Consult Specialty:: Cardiology Referred by:: Dr. Skaggs Reason for Consultation:: Hypertension in the setting of acute renal failure - History of Present Illness Chief Complaint: Fatigue History of Present Illness: 78 year-old woman with a PMHx of DM, HTN, HLD presented to ED 05/03/2018 for abnormal lab values with evidence of AUGUSTINE and hyperkalemia. The patient was seen at [facility] for "influenza like symptoms" with lethargy and bodyaches x 3 days. Had an episode of N+V last night. Denies abdominal pain. She denies chest pain, SOB, palpitation, dizziness, syncope or near syncope. She was found to have AUGUSTINE and hyperkalemia. Received calcium, insulin, D50 and Kayexalate. The patient has no history of CAD, [place] or CHF. ECG 05/03/2018 showed sinus rhythm without ischemic changes. Low voltage noted. CXR revealed borderline cardiomegaly. - History Source History Provided By: Patient, Family Member, Medical Record Limitations to Obtaining History: No Limitations - Past Medical History Cardio/Vascular: Yes: HTN, Hyperlipdemia Endocrine: Yes: Diabetes Mellitus - Alcohol/Substance Use Hx Alcohol Use: No - Smoking History Smoking history: Never smoked Have you smoked in the past 12 months: No Home Medications - Allergies Allergies/Adverse Reactions: Allergies Allergy/AdvReac Type Severity Reaction Status Date / Time No Known Allergies Allergy Verified 05/02/18 16:08 - Home Medications Home Medications: Ambulatory Orders Alendronate Sodium [Binosto] 70 mg PO WEEKLY 05/02/18 Aspirin [Adult Aspirin Regimen] 81 mg PO DAILY 05/02/18 Atorvastatin Calcium [Lipitor] 20 mg PO HS 05/02/18 Cholecalciferol (Vitamin D3) [D-2000] 2,000 unit PO DAILY 05/02/18 Dapagliflozin Propanediol [Farxiga] 10 mg PO DAILY 05/02/18 Ferrous Sulfate [Feosol] 325 mg PO DAILY 05/02/18 Fluticasone Prop 0.05% Nasal [Flonase -] 1 - 2 spray NS BID 05/02/18 Glyburide/Metformin HCl [Glyburide-Metformin 5-500 mg] 2 tab PO BID 05/02/18 [place]-3 Fatty Acids/Fish Oil [Fish Oil 1,000 mg Capsule] 1 each PO DAILY Pantoprazole Sodium [Protonix] 40 mg PO DAILY 05/02/18 Sitagliptin Phosphate [Januvia] 100 mg PO DAILY 05/02/18 Valsartan/Hydrochlorothiazide [Valsartan-Hctz 80-12.5 mg Tab] 1 each PO DAILY Review of Systems - Review of Systems Constitutional: reports: Lethargy, Loss of Appetite Eyes: reports: No Symptoms HENT: reports: No Symptoms Neck: reports: No Symptoms, Swollen Glands Respiratory: reports: No Symptoms Gastrointestinal: reports: Nausea, Vomiting Genitourinary: reports: No Symptoms Breasts: reports: No Symptoms Reported Musculoskeletal: reports: No Symptoms Integumentary: reports: No Symptoms Vital Signs: Vital Signs Temperature 97.3 F L 05/03/18 11:49 Pulse Rate 80 05/03/18 11:49 Respiratory Rate 16 05/03/18 11:49 Blood Pressure 142/65 05/03/18 11:49 O2 Sat by Pulse Oximetry (%) 99 05/03/18 11:49 General: Well developed. Obese and chronic ill. No acute distress. Head: Normocephalic. Atraumatic, Eyes: PERRLA, EOMI. Sclerae anicteric. Conjunctivae clear. Neck: Supple. No JVD. No bruits. Heart: Normal S1, S2: Regular rhythm and rate. No murmur. No gallop or rub. Lungs: Symmetrical air entry. Clear to auscultation. No crackles. No wheezing or rhonchi. Abdomen: Soft. Bowel sound positive. Non tender. No masses. Extremities: No edema. No clubbing or cyanosis. PD 2+, equal bilaterally. - Other Data Labs, Other Data: CBC, BMP 05/03/18 05:28 05/03/18 11:30 INR, PTT INR 1.00 (0.83-1.09) 05/02/18 16:50 Troponin, BNP 05/02/18 05/02/18 16:50 21:30 Troponin I < 0.02 B-Natriuretic Peptide 4738.8 H Troponin, BNP 05/02/18 05/02/18 16:50 21:30 Troponin I < 0.02 B-Natriuretic Peptide 4738.8 H Imaging - Results EKG: Image Reviewed (Sinus rhythm. Low voltage. No significant valvular abnormalities.) Assessment/Plan 78 year-old woman with a PMHx of DM, HTN, HLD presented to ED 05/03/2018 for abnormal lab values with evidence of AUGUSTINE and hyperkalemia. Repeat blood test confirmed AUGUSTINE and hyperkalemia. Received calcium, insulin, D50 and Kayexalate. The patient has no history of CAD, [place] or CHF. ECG 05/03/2018 showed sinus rhythm without ischemic changes. Low voltage noted. CXR revealed borderline cardiomegaly. 1) Hypertension: BP is mildly elevated. Start Amlodipine 5 mg daily. 2) ECG shows low voltage and CXR reveals borderline cardiomegaly. She has no physical signs of cardiac tamponage. Would obtain echo to rule out pericardial effusion. We will follow.
[2018-05-03] MEDS ORDERED: LIDOCAINE HCL 2% (20ML MULTI-DOSE VIAL) NR ONE (14:20)
[2018-05-03] MEDS ORDERED: SODIUM CHLORIDE 250 ML IV PRN (14:23)
--- NOTE | 2018-05-03 14:23 | PN ---
Progress Note (short form) - Note Progress Note: Met with pt and bother her sons to discuss treatment options. They agree to starting HD to treat hyperkalemia. Called vascular surgery to place shiley catheter. Will arrange HD at bedside today. Problem List - Problems (1) Hyperkalemia Code(s): E87.5 - HYPERKALEMIA (2) AUGUSTINE (acute kidney injury) Code(s): N17.9 - ACUTE KIDNEY FAILURE, UNSPECIFIED (3) Diabetes Code(s): E11.9 - TYPE 2 DIABETES MELLITUS WITHOUT COMPLICATIONS Qualifiers: Diabetes mellitus type: type 2 (4) HLD (hyperlipidemia) Code(s): E78.5 - HYPERLIPIDEMIA, UNSPECIFIED
--- NOTE | 2018-05-03 17:41 | PN ---
Progress Note (short form) - Note Progress Note: Vascular Surgery Left femoral shiley placed. Guidewire removed. All ports flushed. Can use for HD Quincy Fermin DO
[2018-05-03 20:01] LABS: ANION GAP 16 MMOL/L (8-16); BLOOD UREA NITROGEN 42 mg/dL (7-18); CHLORIDE 104 mmol/L (98-107); CO2 22 mmol/L (21-32); CREATININE 4.4 mg/dL (0.55-1.3); GLUCOSE,RANDOM 127 mg/dL (74-106); SODIUM 141 mmol/L (136-145)
[2018-05-03] MEDS: SODIUM CHLORIDE 0.45% 1,000 ML IV SCH (21:19)
[2018-05-03] MEDS: ATORVASTATIN CA 20 MG TABLET (FP) PO SCH (21:22)
[2018-05-04] MEDS: INSULIN SLIDING SCALE (NOVOLOG) 1 VIAL SQ SCH ×4 (06:09→21:28)
[2018-05-04] MEDS: SODIUM CHLORIDE 0.45% 1,000 ML IV SCH ×2 (06:49→21:27)
[2018-05-04 08:12] LABS: ALK PHOS 38 U/L (45-117); ANION GAP 12 MMOL/L (8-16); BILIRUBIN,TOTAL 0.6 mg/dL (0.2-1); BLOOD UREA NITROGEN 54 mg/dL (7-18); CALCIUM 8.2 mg/dL (8.5-10.1); CHLORIDE 102 mmol/L (98-107); CO2 25 mmol/L (21-32); CREATININE 5.8 mg/dL (0.55-1.3); GLUCOSE,RANDOM 113 mg/dL (74-106); POTASSIUM 4.6 mmol/L (3.5-5.1); SGOT/AST 16 U/L (15-37); SGPT/ALT 20 U/L (13-61); SODIUM 139 mmol/L (136-145); TOT PROT 5.8 g/dl (6.4-8.2)
[2018-05-04 08:22] LABS: MAGNESIUM 2.2 mg/dL (1.8-2.4); PHOSPHOROUS 4.3 mg/dL (2.5-4.9)
[2018-05-04 08:32] LABS: BASO % 0.2 % (0-2.0); EOS % 0.3 % (0-4.5); HEMATOCRIT 27.6 % (32.4-45.2); HEMOGLOBIN 9.7 GM/dL (10.7-15.3); LYMPH % 14.5 % (8-40); MCH 29.8 pg (25.7-33.7); MCHC 35.1 g/dl (32.0-36.0); MEAN PLT VOLUME 9.8 fl (7.5-11.1); MONO % 7.9 % (3.8-10.2); NEUT % 77.1 % (42.8-82.8); PLATELET COUNT 353 K/MM3 (134-434); RBC 3.25 M/mm3 (3.60-5.2); RDW 15.4 % (11.6-15.6); WHITE BLOOD COUNT 9.7 K/mm3 (4.0-10.0)
--- NOTE | 2018-05-04 08:45 | PN ---
Progress Note, Physician - Current Medication List Current Medications: Active Medications Amlodipine Besylate (Norvasc -) 5 mg PO DAILY [facility] Aspirin (Ecotrin -) 81 mg PO DAILY [facility] Last Admin: 05/03/18 10:42 Dose: 81 mg Atorvastatin Calcium (Lipitor -) 20 mg PO HS [facility] Last Admin: 05/03/18 21:22 Dose: Not Given Cholecalciferol (Vitamin D3 -) 2,000 unit PO DAILY [facility] Last Admin: 05/03/18 10:43 Dose: 2,000 unit Ferrous Sulfate (Feosol -) 325 mg PO DAILY [facility] Last Admin: 05/03/18 10:42 Dose: 325 mg Heparin Sodium (Porcine) (Heparin -) 5,000 unit SQ BID [facility] Last Admin: 05/03/18 21:22 Dose: Not Given Sodium Chloride (Normal Saline -) 250 mls @ 3,000 mls/hr IV PRN PRN PRN Reason: Hypotension during Dialysis Stop: 05/04/18 14:23 Sodium Chloride (1/2 Normal Saline) 1,000 mls @ 75 mls/hr IV ASDIR [facility] Last Admin: 05/04/18 06:49 Dose: 75 mls/hr Insulin Aspart (Novolog Vial Sliding Scale -) 1 vial SQ ACHS [facility]; Protocol Last Admin: 05/04/18 06:09 Dose: Not Given [id number]-[id number] Ethyl Esters (Lovaza -) 1 gm PO DAILY [facility] Last Admin: 05/03/18 10:43 Dose: 1 gm Pantoprazole Sodium (Protonix -) 40 mg PO DAILY [facility] Last Admin: 05/03/18 10:43 Dose: 40 mg - Objective Vital Signs: Vital Signs Temperature 97.6 F 05/04/18 05:51 Pulse Rate 82 05/04/18 05:51 Respiratory Rate 20 05/04/18 05:51 Blood Pressure 142/62 05/04/18 05:51 O2 Sat by Pulse Oximetry (%) 97 05/03/18 21:00 Labs: CBC, BMP 05/04/18 05:50 05/04/18 05:50 INR, PTT INR 1.00 (0.83-1.09) 05/02/18 16:50 Assessment/Plan - Problems (1) AUGUSTINE (acute kidney injury) Assessment/Plan: renal sono noted-morphologically normal kidneys renal consult ivf chatterjee cath repeat bmp noted - elevated lactic acid noted give another dose of kayxelate bicarbonate HD per renal Code(s): N17.9 - ACUTE KIDNEY FAILURE, UNSPECIFIED (2) Leukocytosis Assessment/Plan: possible uti rocephin awaitng cultures id consult Code(s): D72.829 - ELEVATED WHITE BLOOD CELL COUNT, UNSPECIFIED (3) HLD (hyperlipidemia) Assessment/Plan: statin check lipid panel Code(s): E78.5 - HYPERLIPIDEMIA, UNSPECIFIED (4) Diabetes Assessment/Plan: bgm sliding scale hold oral hypoglycemic check [id number] Code(s): E11.9 - TYPE 2 DIABETES MELLITUS WITHOUT COMPLICATIONS Qualifiers: Diabetes mellitus type: type 2 (5) HTN (hypertension) Assessment/Plan: hold ARB and thiazide diuretic given increase bun/cr start norvasc echo orderd to look for wal motion abnormality/pericardial effusion Code(s): I10 - ESSENTIAL (PRIMARY) HYPERTENSION
[2018-05-04] MEDS ORDERED: SODIUM CHLORIDE 250 ML IV PRN (09:03)
[2018-05-04] MEDS: amLODIPine BESYLATE 5 MG TABLET (FP) PO SCH (09:54)
[2018-05-04] MEDS: CHOLECALCIFEROL (VIT D3) 1,000 UNIT (25 MCG) TABLET PO SCH (09:54)
[2018-05-04] MEDS: ASPIRIN COATED 81 MG TABLET.EC PO SCH (09:54)
[2018-05-04] MEDS: FERROUS SO4 325 MG TABLET (FP) PO SCH (09:54)
[2018-05-04] MEDS: HEPARIN NA (PORCINE) 5,000 UNITS/ML 1ML VIAL SQ SCH ×2 (09:54→21:27)
[2018-05-04] MEDS: OMEGA-3 ACID ETHYL ESTERS (FATTY-ACIDS) 1 GM CAPSULE (FP) PO SCH (09:54)
[2018-05-04] MEDS: PANTOPRAZOLE 40 MG TABLET (FP) PO SCH (09:54)
[2018-05-04] MEDS ORDERED: amLODIPine BESYLATE 5 MG TABLET (FP) PO SCH (10:00)
--- NOTE | 2018-05-04 11:21 | PN ---
Progress Note, Physician History of Present Illness: seen and examined today in nad. no overnight events. no new complaints. states she is feeling better but still lightheaded intermittently. currently sitting in chair. - Current Medication List Current Medications: Active Medications Amlodipine Besylate (Norvasc -) 5 mg PO DAILY [facility] Last Admin: 05/04/18 09:54 Dose: 5 mg Aspirin (Ecotrin -) 81 mg PO DAILY [facility] Last Admin: 05/04/18 09:54 Dose: 81 mg Atorvastatin Calcium (Lipitor -) 20 mg PO HS [facility] Last Admin: 05/03/18 21:22 Dose: Not Given Cholecalciferol (Vitamin D3 -) 2,000 unit PO DAILY [facility] Last Admin: 05/04/18 09:54 Dose: 2,000 unit Ferrous Sulfate (Feosol -) 325 mg PO DAILY [facility] Last Admin: 05/04/18 09:54 Dose: 325 mg Heparin Sodium (Porcine) (Heparin -) 5,000 unit SQ BID [facility] Last Admin: 05/04/18 09:54 Dose: 5,000 unit Sodium Chloride (1/2 Normal Saline) 1,000 mls @ 75 mls/hr IV ASDIR [facility] Last Admin: 05/04/18 06:49 Dose: 75 mls/hr Sodium Chloride (Normal Saline -) 250 mls @ 3,000 mls/hr IV PRN PRN PRN Reason: Hypotension during Dialysis Stop: 05/05/18 09:03 Insulin Aspart (Novolog Vial Sliding Scale -) 1 vial SQ ACHS [facility]; Protocol Last Admin: 05/04/18 06:09 Dose: Not Given Xkiey-2-Pqyw Ethyl Esters (Lovaza -) 1 gm PO DAILY [facility] Last Admin: 05/04/18 09:54 Dose: 1 gm Pantoprazole Sodium (Protonix -) 40 mg PO DAILY [facility] Last Admin: 05/04/18 09:54 Dose: 40 mg - Objective Vital Signs: Vital Signs Temperature 97.6 F 05/04/18 10:00 Pulse Rate 79 05/04/18 10:00 Respiratory Rate 20 05/04/18 10:00 Blood Pressure 134/62 05/04/18 10:00 O2 Sat by Pulse Oximetry (%) 97 05/04/18 09:00 Constitutional: Yes: No Distress, Calm Eyes: Yes: Conjunctiva Clear, EOM Intact HENT: Yes: Atraumatic, Normocephalic Neck: Yes: Supple, Trachea Midline Cardiovascular: Yes: Regular Rate and Rhythm, S1, S2. No: Bradycardia, Tachycardia, Pulse Irregular, Bruit, JVD, Gallop, Murmur, Rub, S3, S4, Varicosities Respiratory: Yes: Regular. No: Rales, Rhonchi, Wheezes Gastrointestinal: Yes: Normal Bowel Sounds, Soft. No: Distention, Tenderness Musculoskeletal: Yes: WNL Extremities: Yes: WNL Edema: Yes Edema: LLE: Trace, RLE: Trace Peripheral Pulses WNL: Yes Peripheral Pulses: Left Doralis Pedis: 2+, Right Dorsalis Pedis: 2+ Neurological: Yes: Alert, Oriented Psychiatric: Yes: Alert, Oriented Labs: CBC, BMP 05/04/18 05:50 05/04/18 05:50 INR, PTT INR 1.00 (0.83-1.09) 05/02/18 16:50 - ....Imaging Chest X-ray: Report Reviewed, Image Reviewed EKG: Report Reviewed, Image Reviewed Other: Report Reviewed, Image Reviewed (tele-no sig arrhythmias) Assessment/Plan 78 year-old woman with a PMHx of DM, HTN, HLD presented to ED 05/03/2018 for abnormal lab values with evidence of AUGUSTINE and hyperkalemia. Repeat blood test confirmed AUGUSTINE and hyperkalemia. Received calcium, insulin, D50 and Kayexalate. The patient has no history of CAD, [place] or CHF. ECG 05/03/2018 showed sinus rhythm without ischemic changes. Low voltage noted. CXR revealed borderline cardiomegaly. 1) Hypertension: improved -cont Amlodipine 5 mg daily. 2) ECG shows low voltage and CXR reveals borderline cardiomegaly. She has no physical signs of cardiac tamponade. -fup echo to rule out pericardial effusion.
--- NOTE | 2018-05-04 11:48 | PN ---
Progress Note (short form) - Note Progress Note: ID CONSULT DICTATED LACTIC ACIDOSIS LIKELY SECONDARY TO AUGUSTINE UTI R/O SEPSIS SECONDARY TO UTI AWAIT C/S EMPIRIC [id number]
--- NOTE | 2018-05-04 12:33 | CONS ---
DATE OF CONSULTATION: DATE OF DICTATION: 05/04/2018 REASON FOR CONSULTATION: The patient is an 78-year-old female evaluated for lactic acidosis. 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 She was doing well until approximately Wednesday, May 02, 2018. She developed generalized weakness and body ache associated with lethargy. She also had poor oral intake. She presented to an [facility] where she was evaluated and blood work revealed that the patient was in acute renal failure with hyperkalemia. She was referred to the emergency room. In the emergency room patient reports having an episode of nausea and vomiting. She was admitted with acute renal failure. She was noted to have lactic acidosis. She denies any recent febrile illness. She did complain of a sore throat. No other symptoms suggestive of infection. She denies any chest pain, shortness of breath, cough, or sputum production. No recent dysuria or hematuria. No diarrhea. She lives at home in the community with family members. No ill contacts. No recent hospitalizations. No recent travel. PAST MEDICAL HISTORY: Positive for hypertension, diabetes mellitus, hyperlipidemia. ALLERGIES: No known allergies. MEDICATIONS: Aspirin, Lipitor, vitamin D, Farxiga, Flonase, Glyburide, Protonix, Januvia, valsartan. SOCIAL HISTORY: Resides in the community. She is a nonsmoker, non-drinker. No recent hospitalizations. SYSTEMS REVIEW: Neurologic: No loss of consciousness, seizure activity, focal weakness. Cardiac: Negative chest pain or palpitations. Respiratory: Negative cough or sputum production. Gastrointestinal: As per HPI. Genitourinary: As per HPI. LABORATORY DATA: White count on admission 12.9, 77 neutrophils, 16 lymphocytes, 5 monocytes, hematocrit 36.6, platelet count 421. BUN 54, creatinine 5.8. Lactic acid 5.8. Liver enzymes normal. Urinalysis 17 white cells. Urine culture less than 10,000 colony forming units. Blood cultures preliminary negative. PHYSICAL EXAMINATION: General: On examination she was awake and alert. She is not acutely toxic-appearing. She appears weak. Vitals: Temperature 97.6, blood pressure 134/62, pulse 79 regular, respirations 20 per minute. HEENT: Sclera anicteric. Oropharynx no injection or exudate. Neck: Supple, no palpable nodes. Heart: Sounds S1, S2. Lungs: Clear. Abdomen: Soft, no tenderness elicited, no suprapubic or flank tenderness. Extremities: Negative for edema. IMPRESSION: 1. Lactic acidosis likely secondary to acute renal failure. 2. Acute renal failure of unclear etiology. 3. Rule out urinary tract infection. RECOMMENDATIONS: Await cultures. Empiric ceftriaxone. Renal evaluation and follow up. Will follow. Thank you for the kind referral. MARTY CALVO M.D. [id number]
[2018-05-04] MEDS ORDERED: cefTRIAXone SODIUM 1 GM VIAL ONE (12:50)
[2018-05-04] MEDS ORDERED: DEXTROSE 5%-WATER - 50 ML IVPB ONE (12:51)
[2018-05-04] MEDS: CEFTRIAXONE 1 GM in DEXTROSE 5%-WATER - 50 ML IVPB SCH (12:54)
--- NOTE | 2018-05-04 13:29 | EKG ---
Test Reason : Blood Pressure : / mmHG Vent. Rate : 090 BPM Atrial Rate : 090 BPM P-R Int : 146 ms QRS Dur : 076 ms QT Int : 344 ms P-R-T Axes : 074 086 010 degrees QTc Int : 420 ms NORMAL SINUS RHYTHM POSSIBLE LEFT ATRIAL ENLARGEMENT LOW VOLTAGE QRS BORDERLINE ECG WHEN COMPARED WITH ECG OF 02-MAY-2018 16:08, INVERTED T WAVES HAVE REPLACED NONSPECIFIC T WAVE ABNORMALITY IN INFERIOR LEADS Confirmed by MD CANDY, DARRYN ([id number]) on 05/04/2018 1:28:28 PM Referred By: Confirmed By:DARRYN GUPTA MD
--- NOTE | 2018-05-04 15:14 | PN ---
Progress Note, Physician History of Present Illness: Pt seen and examined at bedside. She is awake and alert. She tolerated HD today. She is tolerating diet. She denies shortness of breath. Her urine output is improved. - Current Medication List Current Medications: Active Medications Amlodipine Besylate (Norvasc -) 5 mg PO DAILY [facility] Last Admin: 05/04/18 09:54 Dose: 5 mg Aspirin (Ecotrin -) 81 mg PO DAILY [facility] Last Admin: 05/04/18 09:54 Dose: 81 mg Atorvastatin Calcium (Lipitor -) 20 mg PO HS [facility] Last Admin: 05/03/18 21:22 Dose: Not Given Cholecalciferol (Vitamin D3 -) 2,000 unit PO DAILY [facility] Last Admin: 05/04/18 09:54 Dose: 2,000 unit Ferrous Sulfate (Feosol -) 325 mg PO DAILY [facility] Last Admin: 05/04/18 09:54 Dose: 325 mg Heparin Sodium (Porcine) (Heparin -) 5,000 unit SQ BID [facility] Last Admin: 05/04/18 09:54 Dose: 5,000 unit Sodium Chloride (1/2 Normal Saline) 1,000 mls @ 75 mls/hr IV ASDIR [facility] Last Admin: 05/04/18 06:49 Dose: 75 mls/hr Sodium Chloride (Normal Saline -) 250 mls @ 3,000 mls/hr IV PRN PRN PRN Reason: Hypotension during Dialysis Stop: 05/05/18 09:03 Ceftriaxone Sodium 1 gm/ (Dextrose) 50 mls @ 100 mls/hr IVPB DAILY [facility]; Protocol Last Admin: 05/04/18 12:54 Dose: 100 mls/hr Insulin Aspart (Novolog Vial Sliding Scale -) 1 vial SQ ACHS [facility]; Protocol Last Admin: 05/04/18 11:24 Dose: 4 units Skfmu-7-Nxiz Ethyl Esters (Lovaza -) 1 gm PO DAILY [facility] Last Admin: 05/04/18 09:54 Dose: 1 gm Pantoprazole Sodium (Protonix -) 40 mg PO DAILY [facility] Last Admin: 05/04/18 09:54 Dose: 40 mg - Objective Vital Signs: Vital Signs Temperature 98 F 05/04/18 14:07 Pulse Rate 81 05/04/18 14:20 Respiratory Rate 18 05/04/18 14:20 Blood Pressure 144/77 05/04/18 14:20 O2 Sat by Pulse Oximetry (%) 97 05/04/18 09:00 Constitutional: Yes: Calm Eyes: Yes: Conjunctiva Clear HENT: Yes: Atraumatic Cardiovascular: Yes: S1, S2 Respiratory: Yes: CTA Bilaterally Gastrointestinal: Yes: Soft, Abdomen, Obese Genitourinary: Yes: Jacques Present Musculoskeletal: Yes: WNL Edema: No Neurological: Yes: Oriented Psychiatric: Yes: Oriented Labs: CBC, BMP 05/04/18 05:50 05/04/18 05:50 INR, PTT INR 1.00 (0.83-1.09) 05/02/18 16:50 Problem List - Problems (1) Hyperkalemia Code(s): E87.5 - HYPERKALEMIA (2) AUGUSTINE (acute kidney injury) Code(s): N17.9 - ACUTE KIDNEY FAILURE, UNSPECIFIED (3) Diabetes Code(s): E11.9 - TYPE 2 DIABETES MELLITUS WITHOUT COMPLICATIONS Qualifiers: Diabetes mellitus type: type 2 (4) HLD (hyperlipidemia) Code(s): E78.5 - HYPERLIPIDEMIA, UNSPECIFIED Assessment/Plan Current Medications Generic Name Dose Route Start Last Admin Trade Name Freq PRN Reason Stop Dose Admin Amlodipine Besylate 5 mg 05/04/18 10:00 05/04/18 09:54 Norvasc - PO 5 mg DAILY [facility] Administration Aspirin 81 mg 05/03/18 10:00 05/04/18 09:54 Ecotrin - PO 81 mg DAILY [facility] Administration Atorvastatin Calcium 20 mg 05/02/18 22:00 05/03/18 21:22 Lipitor - PO Not Given HS [facility] Cholecalciferol 2,000 unit 05/03/18 10:00 05/04/18 09:54 Vitamin D3 - PO 2,000 unit DAILY [facility] Administration Ferrous Sulfate 325 mg 05/03/18 10:00 05/04/18 09:54 Feosol - PO 325 mg DAILY [facility] Administration Heparin Sodium (Porcine) 5,000 unit 05/02/18 22:00 05/04/18 09:54 Heparin - SQ 5,000 unit BID [facility] Administration Sodium Chloride 1,000 mls @ 75 mls/hr 05/03/18 20:15 05/04/18 06:49 1/2 Normal Saline IV 75 mls/hr ASDIR [facility] Administration Sodium Chloride 250 mls @ 3,000 mls/hr 05/04/18 09:03 Normal Saline - IV 05/05/18 09:03 PRN PRN Hypotension during Dialysis Ceftriaxone Sodium 1 gm/ 50 mls @ 100 mls/hr 05/04/18 12:00 05/04/18 12:54 Dextrose IVPB 100 mls/hr DAILY [facility] Administration Protocol Insulin Aspart 1 vial 05/02/18 22:00 05/04/18 11:24 Novolog Vial Sliding Scale - SQ 4 units ACHS [facility] Administration Protocol [id number]-1-[id number] Ethyl Esters 1 gm 05/03/18 10:00 05/04/18 09:54 Lovaza - PO 1 gm DAILY [facility] Administration Pantoprazole Sodium 40 mg 05/03/18 10:00 05/04/18 09:54 Protonix - PO 40 mg DAILY [facility] Administration Impression 1. AUGUSTINE 2. hyperkalemia 3. DM 4. HTN 5. anemia 6. HLD 7. metabolic acidosis Plan - pt tolerated HD today - I removed shiley - repeat labs in am - cont fluids - urine output is improving - follow renal workup - do not restart metformin or arb Dr Segovia
[2018-05-04] MEDS: ATORVASTATIN CA 20 MG TABLET (FP) PO SCH (21:27)
[2018-05-05] MEDS: INSULIN SLIDING SCALE (NOVOLOG) 1 VIAL SQ SCH ×4 (06:27→21:38)
[2018-05-05 07:22] LABS: BASO % 0.2 % (0-2.0); EOS % 0.3 % (0-4.5); HEMOGLOBIN 9.7 GM/dL (10.7-15.3); MCH 29.3 pg (25.7-33.7); MCHC 34.7 g/dl (32.0-36.0); MEAN CELL VOLUME 84.6 fl (80-96); MEAN PLT VOLUME 9.7 fl (7.5-11.1); MONO % 7.1 % (3.8-10.2); NEUT % 77.4 % (42.8-82.8); PLATELET COUNT 349 K/MM3 (134-434); RBC 3.32 M/mm3 (3.60-5.2); RDW 15.2 % (11.6-15.6); WHITE BLOOD COUNT 11.3 K/mm3 (4.0-10.0)
[2018-05-05 07:41] LABS: ALK PHOS 45 U/L (45-117); ANION GAP 9 MMOL/L (8-16); BILIRUBIN,TOTAL 0.6 mg/dL (0.2-1); BLOOD UREA NITROGEN 32 mg/dL (7-18); CALCIUM 8.1 mg/dL (8.5-10.1); CHLORIDE 99 mmol/L (98-107); CO2 28 mmol/L (21-32); CREATININE 4.7 mg/dL (0.55-1.3); GLUCOSE,RANDOM 168 mg/dL (74-106); SGOT/AST 16 U/L (15-37); SGPT/ALT 19 U/L (13-61); SODIUM 136 mmol/L (136-145); TOT PROT 5.9 g/dl (6.4-8.2)
[2018-05-05] MEDS ORDERED: DEXTROSE 5%-WATER - 50 ML IVPB ONE (07:45)
[2018-05-05] MEDS ORDERED: cefTRIAXone SODIUM 1 GM VIAL ONE (07:45)
--- NOTE | 2018-05-05 08:20 | PROC ---
Procedure Note Procedure: Renal/ Samarneh note appreciated. 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 Await Renals decision. Vascular Surgery to cont following Cont medical management
[2018-05-05] MEDS: HEPARIN NA (PORCINE) 5,000 UNITS/ML 1ML VIAL SQ SCH ×2 (09:54→21:31)
[2018-05-05] MEDS: ASPIRIN COATED 81 MG TABLET.EC PO SCH (09:54)
[2018-05-05] MEDS: amLODIPine BESYLATE 5 MG TABLET (FP) PO SCH (09:54)
[2018-05-05] MEDS: CEFTRIAXONE 1 GM in DEXTROSE 5%-WATER - 50 ML IVPB SCH (09:54)
[2018-05-05] MEDS: OMEGA-3 ACID ETHYL ESTERS (FATTY-ACIDS) 1 GM CAPSULE (FP) PO SCH (09:54)
[2018-05-05] MEDS: FERROUS SO4 325 MG TABLET (FP) PO SCH (09:55)
[2018-05-05] MEDS: CHOLECALCIFEROL (VIT D3) 1,000 UNIT (25 MCG) TABLET PO SCH (09:55)
[2018-05-05] MEDS: PANTOPRAZOLE 40 MG TABLET (FP) PO SCH (09:55)
--- NOTE | 2018-05-05 10:03 | PN ---
Progress Note, Physician - Current Medication List Current Medications: Active Medications Amlodipine Besylate (Norvasc -) 5 mg PO DAILY [facility] Last Admin: 05/05/18 09:54 Dose: 5 mg Aspirin (Ecotrin -) 81 mg PO DAILY [facility] Last Admin: 05/05/18 09:54 Dose: 81 mg Atorvastatin Calcium (Lipitor -) 20 mg PO HS [facility] Last Admin: 05/04/18 21:27 Dose: 20 mg Cholecalciferol (Vitamin D3 -) 2,000 unit PO DAILY [facility] Last Admin: 05/05/18 09:55 Dose: 2,000 unit Ferrous Sulfate (Feosol -) 325 mg PO DAILY [facility] Last Admin: 05/05/18 09:55 Dose: 325 mg Heparin Sodium (Porcine) (Heparin -) 5,000 unit SQ BID [facility] Last Admin: 05/05/18 09:54 Dose: 5,000 unit Sodium Chloride (1/2 Normal Saline) 1,000 mls @ 75 mls/hr IV ASDIR [facility] Last Admin: 05/04/18 21:27 Dose: Not Given Sodium Chloride (Normal Saline -) 250 mls @ 3,000 mls/hr IV PRN PRN PRN Reason: Hypotension during Dialysis Stop: 05/05/18 09:03 Ceftriaxone Sodium 1 gm/ (Dextrose) 50 mls @ 100 mls/hr IVPB DAILY [facility]; Protocol Last Admin: 05/05/18 09:54 Dose: 100 mls/hr Insulin Aspart (Novolog Vial Sliding Scale -) 1 vial SQ ACHS [facility]; Protocol Last Admin: 05/05/18 06:27 Dose: 2 units Tjpjg-1-Owpu Ethyl Esters (Lovaza -) 1 gm PO DAILY [facility] Last Admin: 05/05/18 09:54 Dose: 1 gm Pantoprazole Sodium (Protonix -) 40 mg PO DAILY [facility] Last Admin: 05/05/18 09:55 Dose: 40 mg - Objective Vital Signs: Vital Signs Temperature 98.3 F 05/05/18 08:10 Pulse Rate 77 05/05/18 08:10 Respiratory Rate 20 05/05/18 08:10 Blood Pressure 137/62 05/05/18 08:10 O2 Sat by Pulse Oximetry (%) 97 05/05/18 08:10 Cardiovascular: Yes: Regular Rate and Rhythm Respiratory: Yes: Regular, CTA Bilaterally Gastrointestinal: Yes: Normal Bowel Sounds, Soft Labs: CBC, BMP 05/05/18 05:50 05/05/18 05:50 INR, PTT INR 1.00 (0.83-1.09) 05/02/18 16:50 Assessment/Plan - Problems (1) AUGUSTINE (acute kidney injury) Assessment/Plan: renal sono noted-morphologically normal kidneys renal consult noted ivf dc chatterjee cath repeat bmp noted - elevated lactic acid noted--resolved give another dose of kayxelate bicarbonate HD per renal Code(s): N17.9 - ACUTE KIDNEY FAILURE, UNSPECIFIED (2) Leukocytosis Assessment/Plan: possible uti rocephin awaitng cultures id consult Code(s): D72.829 - ELEVATED WHITE BLOOD CELL COUNT, UNSPECIFIED (3) HLD (hyperlipidemia) Assessment/Plan: statin check lipid panel Code(s): E78.5 - HYPERLIPIDEMIA, UNSPECIFIED (4) Diabetes Assessment/Plan: bgm sliding scale hold oral hypoglycemic check hgba1c Code(s): E11.9 - TYPE 2 DIABETES MELLITUS WITHOUT COMPLICATIONS Qualifiers: Diabetes mellitus type: type 2 (5) HTN (hypertension) Assessment/Plan: hold ARB and thiazide diuretic given increase bun/cr start norvasc echo orderd to look for wal motion abnormality/pericardial effusion Code(s): I10 - ESSENTIAL (PRIMARY) HYPERTENSION
[2018-05-05 11:23] LABS: HBSAG SCREEN Negative (Negative); HEP A AB, IGM Negative (Negative); HEP B CORE AB, TOT Negative (Negative)
[2018-05-05 11:23] LABS: HBSAG SCREEN Negative (Negative); HEP A AB, IGM Negative (Negative); HEP B CORE AB, TOT Negative (Negative)
--- NOTE | 2018-05-05 12:46 | PN ---
Progress Note, Physician History of Present Illness: Pt seen and examined at bedside. She has poor PO intake. She says she feels better. She is making urine. - Current Medication List Current Medications: Active Medications Amlodipine Besylate (Norvasc -) 5 mg PO DAILY [facility] Last Admin: 05/05/18 09:54 Dose: 5 mg Aspirin (Ecotrin -) 81 mg PO DAILY [facility] Last Admin: 05/05/18 09:54 Dose: 81 mg Atorvastatin Calcium (Lipitor -) 20 mg PO HS [facility] Last Admin: 05/04/18 21:27 Dose: 20 mg Cholecalciferol (Vitamin D3 -) 2,000 unit PO DAILY [facility] Last Admin: 05/05/18 09:55 Dose: 2,000 unit Ferrous Sulfate (Feosol -) 325 mg PO DAILY [facility] Last Admin: 05/05/18 09:55 Dose: 325 mg Heparin Sodium (Porcine) (Heparin -) 5,000 unit SQ BID [facility] Last Admin: 05/05/18 09:54 Dose: 5,000 unit Sodium Chloride (1/2 Normal Saline) 1,000 mls @ 75 mls/hr IV ASDIR [facility] Last Admin: 05/04/18 21:27 Dose: Not Given Sodium Chloride (Normal Saline -) 250 mls @ 3,000 mls/hr IV PRN PRN PRN Reason: Hypotension during Dialysis Stop: 05/05/18 09:03 Ceftriaxone Sodium 1 gm/ (Dextrose) 50 mls @ 100 mls/hr IVPB DAILY [facility]; Protocol Last Admin: 05/05/18 09:54 Dose: 100 mls/hr Insulin Aspart (Novolog Vial Sliding Scale -) 1 vial SQ ACHS [facility]; Protocol Last Admin: 05/05/18 11:08 Dose: 6 units Donll-9-Utnd Ethyl Esters (Lovaza -) 1 gm PO DAILY [facility] Last Admin: 05/05/18 09:54 Dose: 1 gm Pantoprazole Sodium (Protonix -) 40 mg PO DAILY [facility] Last Admin: 05/05/18 09:55 Dose: 40 mg - Objective Vital Signs: Vital Signs Temperature 98.3 F 05/05/18 08:10 Pulse Rate 77 05/05/18 08:10 Respiratory Rate 20 05/05/18 08:10 Blood Pressure 137/62 05/05/18 08:10 O2 Sat by Pulse Oximetry (%) 97 05/05/18 08:10 Constitutional: Yes: Calm Eyes: Yes: Conjunctiva Clear HENT: Yes: Atraumatic Neck: Yes: Supple Cardiovascular: Yes: S1, S2 Respiratory: Yes: CTA Bilaterally Gastrointestinal: Yes: Normal Bowel Sounds, Soft, Abdomen, Obese Genitourinary: Yes: Jacques Present Musculoskeletal: Yes: WNL Edema: No Neurological: Yes: Oriented Psychiatric: Yes: Oriented Labs: CBC, BMP 05/05/18 05:50 05/05/18 05:50 INR, PTT INR 1.00 (0.83-1.09) 05/02/18 16:50 Problem List - Problems (1) Hyperkalemia Code(s): E87.5 - HYPERKALEMIA (2) AUGUSTINE (acute kidney injury) Code(s): N17.9 - ACUTE KIDNEY FAILURE, UNSPECIFIED (3) Diabetes Code(s): E11.9 - TYPE 2 DIABETES MELLITUS WITHOUT COMPLICATIONS Qualifiers: Diabetes mellitus type: type 2 (4) HLD (hyperlipidemia) Code(s): E78.5 - HYPERLIPIDEMIA, UNSPECIFIED Assessment/Plan Current Medications Generic Name Dose Route Start Last Admin Trade Name Freq PRN Reason Stop Dose Admin Amlodipine Besylate 5 mg 05/04/18 10:00 05/05/18 09:54 Norvasc - PO 5 mg DAILY [facility] Administration Aspirin 81 mg 05/03/18 10:00 05/05/18 09:54 Ecotrin - PO 81 mg DAILY [facility] Administration Atorvastatin Calcium 20 mg 05/02/18 22:00 05/04/18 21:27 Lipitor - PO 20 mg HS [facility] Administration Cholecalciferol 2,000 unit 05/03/18 10:00 05/05/18 09:55 Vitamin D3 - PO 2,000 unit DAILY [facility] Administration Ferrous Sulfate 325 mg 05/03/18 10:00 05/05/18 09:55 Feosol - PO 325 mg DAILY [facility] Administration Heparin Sodium (Porcine) 5,000 unit 05/02/18 22:00 05/05/18 09:54 Heparin - SQ 5,000 unit BID [facility] Administration Sodium Chloride 1,000 mls @ 75 mls/hr 05/03/18 20:15 05/04/18 21:27 1/2 Normal Saline IV Not Given [facility] Sodium Chloride 250 mls @ 3,000 mls/hr 05/04/18 09:03 Normal Saline - IV 05/05/18 09:03 PRN PRN Hypotension during Dialysis Ceftriaxone Sodium 1 gm/ 50 mls @ 100 mls/hr 05/04/18 12:00 05/05/18 09:54 Dextrose IVPB 100 mls/hr DAILY [facility] Administration Protocol Insulin Aspart 1 vial 05/02/18 22:00 05/05/18 11:08 Novolog Vial Sliding Scale - SQ 6 units ACHS [facility] Administration Protocol Pmrbi-5-Gtka Ethyl Esters 1 gm 05/03/18 10:00 05/05/18 09:54 Lovaza - PO 1 gm DAILY [facility] Administration Pantoprazole Sodium 40 mg 05/03/18 10:00 05/05/18 09:55 Protonix - PO 40 mg DAILY [facility] Administration Impression 1. AUGUSTINE 2. hyperkalemia 3. DM 4. HTN 5. anemia 6. HLD 7. metabolic acidosis Plan - cont to monitor renal function - repeat labs in am - change iv location - cont fluids - pt has made about 1200 cc of urine in last 24 hrs - follow renal workup - do not restart metformin or arb - likely resolving atn Dr Segovia
--- NOTE | 2018-05-05 15:42 | ECHO ---
Name: CECILIA SALCIDO Exam:Adult Echocardiogram Study Date: 05/05/2018 01:49 PM Age: 78 yrs Reason For Study: look for motion abnormality Height: 63 in Weight: 153 lb BSA: 1.7 m2 MMode/2D Measurements & Calculations IVSd: 1.2 cm Ao root diam: 3.5 cm LVIDd: 4.3 cm LA dimension: 4.3 cm LVIDs: 2.2 cm ACS: 1.4 cm LVPWd: 1.2 cm IVSs: 1.8 cm LVPWs: 1.6 cm EDV(Teich): 83.1 ml ESV(Teich): 15.3 ml LVOT diam: 2.0 cm Doppler Measurements & Calculations MV E max jose: 104.9 cm/sec Ao V2 max: 198.2 cm/sec MV A max jose: 153.5 cm/sec Ao max P.7 mmHg MV E/A: 0.68 Ao V2 mean: 144.0 cm/sec Ao mean P.3 mmHg Ao V2 VTI: 39.3 cm MARION(I,D): 1.9 cm2 MARION(V,D): 1.8 cm2 LV V1 max P.4 mmHg MR max jose: 501.7 cm/sec LV V1 mean P.5 mmHg MR max P.7 mmHg LV V1 max: 116.0 cm/sec LV V1 mean: 87.6 cm/sec LV V1 VTI: 25.2 cm SV(LVOT): 76.6 ml TR max jose: 298.5 cm/sec TR max P.8 mmHg PI end-d jose: 81.4 cm/sec Med Peak E' Jose: 5.8 cm/sec Med E/e': 17.9 Lat Peak E' Jose: 7.4 cm/sec Lat E/e': 14.2 Procedure A two-dimensional transthoracic echocardiogram with color flow and Doppler was performed. Left Ventricle The left ventricular size, thickness and function are normal. The left ventricular ejection fraction is normal. E/A reversal consistent with but not diagnostic of poor LV compliance. The left ventricular w all motion is normal. Right Ventricle The right ventricle is normal in size and function. Atria The left atrium is moderately dilated. The right atrium is moderately dilated. Mitral Valve There is mild mitral valve thickening. There is no mitral valve stenosis. There is mild mitral regurg itation. Tricuspid Valve There is mild tricuspid valve thickening. There is no tricuspid stenosis. There is mild to moderate t ricuspid regurgitation. Right ventricular systolic pressure is elevated at 40-50mmHg. Aortic Valve There is mild to moderate aortic valve thickening. There is mild to moderate aortic sclerosis.;. No hemodynamically significant valvular aortic stenosis. No aortic regurgitation is present. Pulmonic Valve The pulmonic valve is not well visualized. There is no pulmonic valvular stenosis. Mild pulmonic valv ular regurgitation. Great Vessels The aortic root is normal size. Pericardium/Pleura There is no pericardial effusion. Interpretation Summary The left ventricular size, thickness and function are normal The left ventricular ejection fraction is normal. The left ventricular wall motion is normal. The left atrium is moderately dilated. The right atrium is moderately dilated. There is mild to moderate tricuspid regurgitation. Right ventricular systolic pressure is elevated at 40-50mmHg. E/A reversal consistent with but not diagnostic of poor LV compliance There is mild mitral regurgitation. MD Raman Larson 05/05/2018 03:42 PM
--- NOTE | 2018-05-05 15:49 | PN ---
Progress Note, Physician Chief Complaint: NO COMPLAINTS DENIES DYSURIA/ HEMATURIA NO SUPRAPUBIC PAIN NO FEVER/ CHILLS BC, URINE C/S (-) - Current Medication List Current Medications: Active Medications Amlodipine Besylate (Norvasc -) 5 mg PO DAILY [facility] Last Admin: 05/05/18 09:54 Dose: 5 mg Aspirin (Ecotrin -) 81 mg PO DAILY [facility] Last Admin: 05/05/18 09:54 Dose: 81 mg Atorvastatin Calcium (Lipitor -) 20 mg PO HS [facility] Last Admin: 05/04/18 21:27 Dose: 20 mg Cholecalciferol (Vitamin D3 -) 2,000 unit PO DAILY [facility] Last Admin: 05/05/18 09:55 Dose: 2,000 unit Ferrous Sulfate (Feosol -) 325 mg PO DAILY [facility] Last Admin: 05/05/18 09:55 Dose: 325 mg Heparin Sodium (Porcine) (Heparin -) 5,000 unit SQ BID [facility] Last Admin: 05/05/18 09:54 Dose: 5,000 unit Sodium Chloride (1/2 Normal Saline) 1,000 mls @ 75 mls/hr IV ASDIR [facility] Last Admin: 05/04/18 21:27 Dose: Not Given Sodium Chloride (Normal Saline -) 250 mls @ 3,000 mls/hr IV PRN PRN PRN Reason: Hypotension during Dialysis Stop: 05/05/18 09:03 Ceftriaxone Sodium 1 gm/ (Dextrose) 50 mls @ 100 mls/hr IVPB DAILY [facility]; Protocol Last Admin: 05/05/18 09:54 Dose: 100 mls/hr Insulin Aspart (Novolog Vial Sliding Scale -) 1 vial SQ ACHS [facility]; Protocol Last Admin: 05/05/18 11:08 Dose: 6 units Mmnlq-8-Wwjp Ethyl Esters (Lovaza -) 1 gm PO DAILY [facility] Last Admin: 05/05/18 09:54 Dose: 1 gm Pantoprazole Sodium (Protonix -) 40 mg PO DAILY [facility] Last Admin: 05/05/18 09:55 Dose: 40 mg - Objective Vital Signs: Vital Signs Temperature 98.6 F 05/05/18 14:00 Pulse Rate 84 05/05/18 14:00 Respiratory Rate 20 05/05/18 14:00 Blood Pressure 158/78 05/05/18 14:00 O2 Sat by Pulse Oximetry (%) 97 05/05/18 08:10 Constitutional: Yes: No Distress Eyes: Yes: Conjunctiva Clear Cardiovascular: Yes: Regular Rate and Rhythm, S1, S2 Respiratory: Yes: CTA Bilaterally Gastrointestinal: Yes: Normal Bowel Sounds, Soft, Abdomen, Obese. No: Tenderness Labs: CBC, BMP 05/05/18 05:50 05/05/18 05:50 INR, PTT INR 1.00 (0.83-1.09) 05/02/18 16:50 Assessment/Plan ACUTE RENAL FAILURE LACTIC ACIDOSIS RESOLVED CULTURES NEGATIVE OBSERVE OFF ANTIBIOTICS
--- NOTE | 2018-05-05 18:44 | PN ---
Progress Note, Physician Chief Complaint: The patient appears comfortable at the time of exam. She looks better and denies chest pain, SOB or palpitation. History of Present Illness: 78 year-old woman with a PMHx of DM, HTN, HLD presented to ED 05/03/2018 for abnormal lab values with evidence of AUGUSTINE and hyperkalemia. The patient was seen at [facility] for "influenza like symptoms" with lethargy and bodyaches x 3 days. Had an episode of N+V last night. Denies abdominal pain. She denies chest pain, SOB, palpitation, dizziness, syncope or near syncope. She was found to have AUGUSTINE and hyperkalemia. Received calcium, insulin, D50 and Kayexalate. Renal function improving. ECG 05/03/2018 showed sinus rhythm without ischemic changes. Low voltage noted. CXR revealed borderline cardiomegaly. Echocardiogram 05/05/2018 showed no pericardial effusion. LV and RV systolic function normal. Moderate LA and RA dilatation. Mild MR. Mild to moderate TR. - Current Medication List Current Medications: Active Medications Amlodipine Besylate (Norvasc -) 5 mg PO DAILY [facility] Last Admin: 05/05/18 09:54 Dose: 5 mg Aspirin (Ecotrin -) 81 mg PO DAILY [facility] Last Admin: 05/05/18 09:54 Dose: 81 mg Atorvastatin Calcium (Lipitor -) 20 mg PO HS [facility] Last Admin: 05/04/18 21:27 Dose: 20 mg Cholecalciferol (Vitamin D3 -) 2,000 unit PO DAILY [facility] Last Admin: 05/05/18 09:55 Dose: 2,000 unit Ferrous Sulfate (Feosol -) 325 mg PO DAILY [facility] Last Admin: 05/05/18 09:55 Dose: 325 mg Heparin Sodium (Porcine) (Heparin -) 5,000 unit SQ BID [facility] Last Admin: 05/05/18 09:54 Dose: 5,000 unit Sodium Chloride (1/2 Normal Saline) 1,000 mls @ 75 mls/hr IV ASDIR [facility] Last Admin: 05/04/18 21:27 Dose: Not Given Sodium Chloride (Normal Saline -) 250 mls @ 3,000 mls/hr IV PRN PRN PRN Reason: Hypotension during Dialysis Stop: 05/05/18 09:03 Insulin Aspart (Novolog Vial Sliding Scale -) 1 vial SQ ACHS [facility]; Protocol Last Admin: 05/05/18 17:19 Dose: 6 units Rcrnl-1-Tquk Ethyl Esters (Lovaza -) 1 gm PO DAILY [facility] Last Admin: 05/05/18 09:54 Dose: 1 gm Pantoprazole Sodium (Protonix -) 40 mg PO DAILY [facility] Last Admin: 05/05/18 09:55 Dose: 40 mg - Objective Vital Signs: Vital Signs Temperature 98.6 F 05/05/18 14:00 Pulse Rate 84 05/05/18 14:00 Respiratory Rate 20 05/05/18 14:00 Blood Pressure 158/78 05/05/18 14:00 O2 Sat by Pulse Oximetry (%) 97 05/05/18 08:10 General: Well developed. Well nourished. No acute distress. Head: Normocephalic. Atraumatic, Eyes: PERRLA, EOMI. Sclerae anicteric. Conjunctivae clear. Neck: Supple. No JVD. No bruits. Heart: Normal S1, S2: Regular rhythm and rate. No murmur. No gallop or rub. Lungs: Symmetrical air entry. Clear to auscultation. No crackle. No wheezing or rhonchi. Abdomen: Soft. Bowel sound positive. Non tender. No masses. Extremities: No edema. No clubbing or cyanosis. Labs: CBC, BMP 05/05/18 05:50 05/05/18 05:50 INR, PTT INR 1.00 (0.83-1.09) 05/02/18 16:50 Assessment/Plan 78 year-old woman with a PMHx of DM, HTN, HLD presented to ED 05/03/2018 for abnormal lab values with evidence of AUGUSTINE and hyperkalemia. The patient was seen at [facility] for "influenza like symptoms" with lethargy and bodyaches x 3 days. Had an episode of N+V last night. Denies abdominal pain. She denies chest pain, SOB, palpitation, dizziness, syncope or near syncope. She was found to have AUGUSTINE and hyperkalemia. Received calcium, insulin, D50 and Kayexalate. Renal function improving. ECG 05/03/2018 showed sinus rhythm without ischemic changes. Low voltage noted. CXR revealed borderline cardiomegaly. Echocardiogram 05/05/2018 showed no pericardial effusion. LV and RV systolic function normal. Moderate LA and RA dilatation. Mild MR. Mild to moderate TR. 1) Hypertension: BP is mildly elevated. May increase amlodipine to 10 mg daily. 2) ECG shows low voltage and CXR reveals borderline cardiomegaly. She has no physical signs of cardiac tamponage. Echo shows no pericardial effusion. LV and RV systolic function preserved. Please call us for reconsult as needed.
[2018-05-05] MEDS: ATORVASTATIN CA 20 MG TABLET (FP) PO SCH (21:31)
[2018-05-05] MEDS: SODIUM CHLORIDE 0.45% 1,000 ML IV SCH (21:33)
--- NOTE | 2018-05-06 02:14 | CONSULT ---
Consult Consult Specialty:: endocrine Referred by:: chiara boston md Reason for Consultation:: diabetes mellitus type 2 - History of Present Illness Chief Complaint: kidney problem History of Present Illness: 78 F with pmh dm2,hypertension,recent urti symptoms,has had weakness nausea, decreased appetite for last several days not eating or drinking much,yet taking her medication for bp and diabetic medications, developed body aches nausea and vomiting.to hospital for abnormal lab values. Was seen at [facility] for " influena symptoms and sent to ed for admission for acute kidney failure cr was 6.o - Past Medical History Cardio/Vascular: Yes: HTN, Hyperlipdemia Endocrine: Yes: Diabetes Mellitus - Alcohol/Substance Use Hx Alcohol Use: No - Smoking History Smoking history: Never smoked Have you smoked in the past 12 months: No Home Medications - Allergies Allergies/Adverse Reactions: Allergies Allergy/AdvReac Type Severity Reaction Status Date / Time No Known Allergies Allergy Verified 05/02/18 16:08 - Home Medications Home Medications: Ambulatory Orders Alendronate Sodium [Binosto] 70 mg PO WEEKLY 05/02/18 Aspirin [Adult Aspirin Regimen] 81 mg PO DAILY 05/02/18 Atorvastatin Calcium [Lipitor] 20 mg PO HS 05/02/18 Cholecalciferol (Vitamin D3) [D-2000] 2,000 unit PO DAILY 05/02/18 Dapagliflozin Propanediol [Farxiga] 10 mg PO DAILY 05/02/18 Ferrous Sulfate [Feosol] 325 mg PO DAILY 05/02/18 Fluticasone Prop 0.05% Nasal [Flonase -] 1 - 2 spray NS BID 05/02/18 Glyburide/Metformin HCl [Glyburide-Metformin 5-500 mg] 2 tab PO BID 05/02/18 [place]-3 Fatty Acids/Fish Oil [Fish Oil 1,000 mg Capsule] 1 each PO DAILY Pantoprazole Sodium [Protonix] 40 mg PO DAILY 05/02/18 Sitagliptin Phosphate [Januvia] 100 mg PO DAILY 05/02/18 Valsartan/Hydrochlorothiazide [Valsartan-Hctz 80-12.5 mg Tab] 1 each PO DAILY Review of Systems - Review of Systems Constitutional: reports: Lethargy, Weakness Eyes: reports: No Symptoms HENT: reports: No Symptoms Neck: reports: No Symptoms Cardiovascular: reports: Shortness of Breath Respiratory: reports: Exercise Intolerance, SOB on Exertion Gastrointestinal: reports: Abdominal Pain, Bloating Genitourinary: reports: No Symptoms Breasts: reports: No Symptoms Reported Musculoskeletal: reports: No Symptoms Endocrine: reports: Unexplained Weight Gain Physical Exam Vital Signs: Vital Signs Temperature 98.9 F 05/05/18 22:00 Pulse Rate 80 05/05/18 22:00 Respiratory Rate 18 05/05/18 22:00 Blood Pressure 129/62 05/05/18 22:00 O2 Sat by Pulse Oximetry (%) 97 05/05/18 08:10 Constitutional: Yes: Anxious Eyes: Yes: EOM Intact HENT: Yes: Normocephalic Neck: Yes: Trachea Midline Cardiovascular: Yes: Regular Rate and Rhythm Respiratory: Yes: CTA Bilaterally Gastrointestinal: Yes: Normal Bowel Sounds ...Rectal Exam: Yes: Deferred Musculoskeletal: Yes: Muscle Weakness Edema: No Neurological: Yes: Alert, Oriented Labs: CBC, BMP 05/05/18 05:50 05/05/18 05:50 Problem List - Problems (1) AUGUSTINE (acute kidney injury) Code(s): N17.9 - ACUTE KIDNEY FAILURE, UNSPECIFIED (2) Diabetes Code(s): E11.9 - TYPE 2 DIABETES MELLITUS WITHOUT COMPLICATIONS Qualifiers: Diabetes mellitus type: type 2 (3) HLD (hyperlipidemia) Code(s): E78.5 - HYPERLIPIDEMIA, UNSPECIFIED (4) HTN (hypertension) Code(s): I10 - ESSENTIAL (PRIMARY) HYPERTENSION (5) Hyperkalemia Code(s): E87.5 - HYPERKALEMIA (6) Leukocytosis Code(s): D72.829 - ELEVATED WHITE BLOOD CELL COUNT, UNSPECIFIED Assessment/Plan Current Active Problems AUGUSTINE (acute kidney injury) (Acute) Diabetes (Acute) HLD (hyperlipidemia) (Acute) HTN (hypertension) (Acute) Hyperkalemia (Acute) Leukocytosis (Acute) Abnormal Lab Results 05/03/18 05/04/18 05/05/18 16:00 05:50 05:50 WBC 11.3 H RBC 3.32 L Hgb 9.7 L Hct 28.0 L Absolute Neuts (auto) 8.8 H BUN Creatinine Random Glucose Calcium Total Protein Albumin JANEY Screen Positive H Hepatitis A Ab Total Positive H Positive H 05/05/18 05:50 WBC RBC Hgb Hct Absolute Neuts (auto) BUN 32 H Creatinine 4.7 H Random Glucose 168 H Calcium 8.1 L Total Protein 5.9 L Albumin 3.0 L JANEY Screen Hepatitis A Ab Total Laboratory Results - last 24 hr 05/03/18 05/04/18 05/05/18 16:00 05:50 05:48 WBC RBC Hgb Hct MCV MCH MCHC RDW Plt Count MPV Absolute Neuts (auto) Neutrophils % Lymphocytes % Monocytes % Eosinophils % Basophils % Nucleated RBC % Sodium Potassium Chloride Carbon Dioxide Anion Gap BUN Creatinine Creat Clearance w eGFR POC Glucometer 175 Random Glucose Lactic Acid Calcium Total Bilirubin AST ALT Alkaline Phosphatase Total Protein Albumin JANEY Screen Positive H JANEY Homogeneous Pattern 1:80 JANEY Nucleolar Pattern TNP JANEY Spindle Young Pattern TNP JANEY Midbody Pattern TNP JANEY Centriole Pattern TNP JANEY Nuclear Dot Pattern TNP JANEY PCNA Pattern TNP JANEY Nuclear Membr Pat TNP JANEY Speckled Pattern TNP JANEY Centromere Pattern TNP Double Strand DNA Ab <1 Hep A IgM Ab Confirm Negative Negative Hepatitis A Ab Total Positive H Positive H Hep Bs Antigen Negative Negative Hep Bs Antibody Non reactive Non reactive Hep B Core Total Ab Negative Negative Hep C Ab Diagnostic <0.1 05/05/18 05/05/18 05/05/18 05:50 05:50 05:50 WBC 11.3 H RBC 3.32 L Hgb 9.7 L Hct 28.0 L MCV 84.6 MCH 29.3 MCHC 34.7 RDW 15.2 Plt Count 349 MPV 9.7 Absolute Neuts (auto) 8.8 H Neutrophils % 77.4 Lymphocytes % 15.0 Monocytes % 7.1 Eosinophils % 0.3 Basophils % 0.2 Nucleated RBC % 0 Sodium 136 Potassium 4.0 Chloride 99 Carbon Dioxide 28 Anion Gap 9 BUN 32 H Creatinine 4.7 H Creat Clearance w eGFR 8.94 POC Glucometer Random Glucose 168 H Lactic Acid 1.2 Calcium 8.1 L Total Bilirubin 0.6 AST 16 ALT 19 Alkaline Phosphatase 45 Total Protein 5.9 L Albumin 3.0 L JANEY Screen JANEY Homogeneous Pattern JANEY Nucleolar Pattern JANEY Spindle Young Pattern JANEY Midbody Pattern JANEY Centriole Pattern JANEY Nuclear Dot Pattern JANEY PCNA Pattern JANEY Nuclear Membr Pat JANEY Speckled Pattern JANEY Centromere Pattern Double Strand DNA Ab Hep A IgM Ab Confirm Hepatitis A Ab Total Hep Bs Antigen Hep Bs Antibody Hep B Core Total Ab Hep C Ab Diagnostic 05/05/18 05/05/18 05/05/18 11:04 17:09 21:27 WBC RBC Hgb Hct MCV MCH MCHC RDW Plt Count MPV Absolute Neuts (auto) Neutrophils % Lymphocytes % Monocytes % Eosinophils % Basophils % Nucleated RBC % Sodium Potassium Chloride Carbon Dioxide Anion Gap BUN Creatinine Creat Clearance w eGFR POC Glucometer 273 221 243 Random Glucose Lactic Acid Calcium Total Bilirubin AST ALT Alkaline Phosphatase Total Protein Albumin JANEY Screen JANEY Homogeneous Pattern JANEY Nucleolar Pattern JANEY Spindle Young Pattern JANEY Midbody Pattern JANEY Centriole Pattern JANEY Nuclear Dot Pattern JANEY PCNA Pattern JANEY Nuclear Membr Pat JANEY Speckled Pattern JANEY Centromere Pattern Double Strand DNA Ab Hep A IgM Ab Confirm Hepatitis A Ab Total Hep Bs Antigen Hep Bs Antibody Hep B Core Total Ab Hep C Ab Diagnostic plan: bgm qid novolog dc home meds farxiga sglt2 dc home meds metformin levemir 10 units am avoid oral agents till kidney function stablized repeat hba1c glycomark
[2018-05-06] MEDS: INSULIN (LEVEMIR) 100 UNITS/ML UNITS SQ SCH (06:09)
[2018-05-06] MEDS: INSULIN SLIDING SCALE (NOVOLOG) 1 VIAL SQ SCH ×4 (06:11→21:33)
[2018-05-06 08:09] LABS: ALBUMIN 2.8 g/dl (3.4-5.0); ALK PHOS 51 U/L (45-117); ANION GAP 10 MMOL/L (8-16); BILIRUBIN,TOTAL 0.4 mg/dL (0.2-1); BLOOD UREA NITROGEN 40 mg/dL (7-18); CALCIUM 7.1 mg/dL (8.5-10.1); CHLORIDE 97 mmol/L (98-107); CO2 25 mmol/L (21-32); CREATININE 5.7 mg/dL (0.55-1.3); GLUCOSE,RANDOM 149 mg/dL (74-106); PHOSPHOROUS 3.6 mg/dL (2.5-4.9); SGOT/AST 23 U/L (15-37); SGPT/ALT 25 U/L (13-61); SODIUM 132 mmol/L (136-145); TOT PROT 5.8 g/dl (6.4-8.2)
[2018-05-06] MEDS: HEPARIN NA (PORCINE) 5,000 UNITS/ML 1ML VIAL SQ SCH ×2 (09:28→21:33)
[2018-05-06] MEDS: FERROUS SO4 325 MG TABLET (FP) PO SCH (09:28)
[2018-05-06] MEDS: OMEGA-3 ACID ETHYL ESTERS (FATTY-ACIDS) 1 GM CAPSULE (FP) PO SCH (09:28)
[2018-05-06] MEDS: ASPIRIN COATED 81 MG TABLET.EC PO SCH (09:28)
[2018-05-06] MEDS: PANTOPRAZOLE 40 MG TABLET (FP) PO SCH (09:28)
[2018-05-06] MEDS: CHOLECALCIFEROL (VIT D3) 1,000 UNIT (25 MCG) TABLET PO SCH (09:28)
[2018-05-06] MEDS: amLODIPine BESYLATE 5 MG TABLET (FP) PO SCH (09:29)
[2018-05-06 10:13] LABS: ANTIGLOMERULAR BASEMENT MEN.AB 4 units (0-20)
[2018-05-06] MEDS: SODIUM CHLORIDE 1,000 ML IV SCH (11:35)
--- NOTE | 2018-05-06 12:29 | PN ---
Progress Note, Physician Chief Complaint: awake alert no distress - Current Medication List Current Medications: Active Medications Amlodipine Besylate (Norvasc -) 10 mg PO DAILY [facility] Aspirin (Ecotrin -) 81 mg PO DAILY [facility] Last Admin: 05/06/18 09:28 Dose: 81 mg Atorvastatin Calcium (Lipitor -) 20 mg PO HS [facility] Last Admin: 05/05/18 21:31 Dose: 20 mg Cholecalciferol (Vitamin D3 -) 2,000 unit PO DAILY [facility] Last Admin: 05/06/18 09:28 Dose: 2,000 unit Ferrous Sulfate (Feosol -) 325 mg PO DAILY [facility] Last Admin: 05/06/18 09:28 Dose: 325 mg Heparin Sodium (Porcine) (Heparin -) 5,000 unit SQ BID [facility] Last Admin: 05/06/18 09:28 Dose: 5,000 unit Sodium Chloride (Normal Saline -) 250 mls @ 3,000 mls/hr IV PRN PRN PRN Reason: Hypotension during Dialysis Stop: 05/05/18 09:03 Sodium Chloride (Normal Saline -) 1,000 mls @ 50 mls/hr IV ASDIR [facility] Stop: 05/07/18 09:30 Last Admin: 05/06/18 11:35 Dose: 50 mls/hr Insulin Aspart (Novolog Vial Sliding Scale -) 1 vial SQ ACHS [facility]; Protocol Last Admin: 05/06/18 11:33 Dose: 6 units Insulin Detemir (Levemir Vial) 10 units SQ AM [facility] Last Admin: 05/06/18 06:09 Dose: 10 units [id number]-7-Dnex Ethyl Esters (Lovaza -) 1 gm PO DAILY [facility] Last Admin: 05/06/18 09:28 Dose: 1 gm Pantoprazole Sodium (Protonix -) 40 mg PO DAILY [facility] Last Admin: 05/06/18 09:28 Dose: 40 mg - Objective Vital Signs: Vital Signs Temperature 98.7 F 05/06/18 08:43 Pulse Rate 74 05/06/18 08:43 Respiratory Rate 18 05/06/18 08:46 Blood Pressure 139/63 05/06/18 08:43 O2 Sat by Pulse Oximetry (%) 95 05/06/18 08:46 Constitutional: Yes: Calm Cardiovascular: Yes: Regular Rate and Rhythm, S1, S2 Respiratory: Yes: CTA Bilaterally Gastrointestinal: Yes: Normal Bowel Sounds, Soft Labs: CBC, BMP 05/05/18 05:50 05/06/18 06:00 INR, PTT INR 1.00 (0.83-1.09) 05/02/18 16:50 Problem List - Problems (1) AUGUSTINE (acute kidney injury) Assessment/Plan: renal sono noted-morphologically normal kidneys renal on board renal function improving chatterjee cath metformin and ARB stopped lactic acidosis resolved HD per renal Code(s): N17.9 - ACUTE KIDNEY FAILURE, UNSPECIFIED (2) Leukocytosis Assessment/Plan: observe off abx rocephin stop cultures negative Microbiology 05/02/18 17:21 Urine - Urine Clean Catch Urine Culture - Final 05/04/18 06:15 Blood - Peripheral Venous Blood Culture - Preliminary NO GROWTH OBTAINED AFTER 48 HOURS, INCUBATION TO CONTINUE FOR 3 DAYS. 05/04/18 05:50 Blood - Peripheral Venous Blood Culture - Preliminary NO GROWTH OBTAINED AFTER 48 HOURS, INCUBATION TO CONTINUE FOR 3 DAYS. Code(s): D72.829 - ELEVATED WHITE BLOOD CELL COUNT, UNSPECIFIED (3) HLD (hyperlipidemia) Assessment/Plan: statin lipid panel noted Code(s): E78.5 - HYPERLIPIDEMIA, UNSPECIFIED (4) Diabetes Assessment/Plan: bgm sliding scale hold oral hypoglycemic check hgba1c again endo eval noted levemir Code(s): E11.9 - TYPE 2 DIABETES MELLITUS WITHOUT COMPLICATIONS Qualifiers: Diabetes mellitus type: type 2 (5) HTN (hypertension) Code(s): I10 - ESSENTIAL (PRIMARY) HYPERTENSION
--- NOTE | 2018-05-06 12:48 | PN ---
Progress Note, Physician History of Present Illness: Pt seen and examined at bedside. She is awake and alert. She has poor PO intake , she does not like the food. SHe is making urine. - Current Medication List Current Medications: Active Medications Amlodipine Besylate (Norvasc -) 10 mg PO DAILY [facility] Aspirin (Ecotrin -) 81 mg PO DAILY [facility] Last Admin: 05/06/18 09:28 Dose: 81 mg Atorvastatin Calcium (Lipitor -) 20 mg PO HS [facility] Last Admin: 05/05/18 21:31 Dose: 20 mg Cholecalciferol (Vitamin D3 -) 2,000 unit PO DAILY [facility] Last Admin: 05/06/18 09:28 Dose: 2,000 unit Ferrous Sulfate (Feosol -) 325 mg PO DAILY [facility] Last Admin: 05/06/18 09:28 Dose: 325 mg Heparin Sodium (Porcine) (Heparin -) 5,000 unit SQ BID [facility] Last Admin: 05/06/18 09:28 Dose: 5,000 unit Sodium Chloride (Normal Saline -) 250 mls @ 3,000 mls/hr IV PRN PRN PRN Reason: Hypotension during Dialysis Stop: 05/05/18 09:03 Sodium Chloride (Normal Saline -) 1,000 mls @ 50 mls/hr IV ASDIR [facility] Stop: 05/07/18 09:30 Last Admin: 05/06/18 11:35 Dose: 50 mls/hr Insulin Aspart (Novolog Vial Sliding Scale -) 1 vial SQ ACHS [facility]; Protocol Last Admin: 05/06/18 11:33 Dose: 6 units Insulin Detemir (Levemir Vial) 10 units SQ AM [facility] Last Admin: 05/06/18 06:09 Dose: 10 units [id number]-6-Zalq Ethyl Esters (Lovaza -) 1 gm PO DAILY [facility] Last Admin: 05/06/18 09:28 Dose: 1 gm Pantoprazole Sodium (Protonix -) 40 mg PO DAILY [facility] Last Admin: 05/06/18 09:28 Dose: 40 mg - Objective Vital Signs: Vital Signs Temperature 98.7 F 05/06/18 08:43 Pulse Rate 74 05/06/18 08:43 Respiratory Rate 18 05/06/18 08:46 Blood Pressure 139/63 05/06/18 08:43 O2 Sat by Pulse Oximetry (%) 95 05/06/18 08:46 Constitutional: Yes: Calm Eyes: Yes: Conjunctiva Clear HENT: Yes: Atraumatic Cardiovascular: Yes: S1, S2 Respiratory: Yes: CTA Bilaterally Gastrointestinal: Yes: Normal Bowel Sounds, Soft Genitourinary: Yes: WNL Musculoskeletal: Yes: WNL Edema: No Neurological: Yes: Oriented Psychiatric: Yes: Oriented Labs: CBC, BMP 05/05/18 05:50 05/06/18 06:00 INR, PTT INR 1.00 (0.83-1.09) 05/02/18 16:50 Problem List - Problems (1) Hyperkalemia Code(s): E87.5 - HYPERKALEMIA (2) AUGUSTINE (acute kidney injury) Code(s): N17.9 - ACUTE KIDNEY FAILURE, UNSPECIFIED (3) Diabetes Code(s): E11.9 - TYPE 2 DIABETES MELLITUS WITHOUT COMPLICATIONS Qualifiers: Diabetes mellitus type: type 2 (4) HLD (hyperlipidemia) Code(s): E78.5 - HYPERLIPIDEMIA, UNSPECIFIED Assessment/Plan Current Medications Generic Name Dose Route Start Last Admin Trade Name Freq PRN Reason Stop Dose Admin Amlodipine Besylate 10 mg 05/07/18 10:00 Norvasc - PO DAILY [facility] Aspirin 81 mg 05/03/18 10:00 05/06/18 09:28 Ecotrin - PO 81 mg DAILY [facility] Administration Atorvastatin Calcium 20 mg 05/02/18 22:00 05/05/18 21:31 Lipitor - PO 20 mg HS [facility] Administration Cholecalciferol 2,000 unit 05/03/18 10:00 05/06/18 09:28 Vitamin D3 - PO 2,000 unit DAILY [facility] Administration Ferrous Sulfate 325 mg 05/03/18 10:00 05/06/18 09:28 Feosol - PO 325 mg DAILY [facility] Administration Heparin Sodium (Porcine) 5,000 unit 05/02/18 22:00 05/06/18 09:28 Heparin - SQ 5,000 unit BID [facility] Administration Sodium Chloride 250 mls @ 3,000 mls/hr 05/04/18 09:03 Normal Saline - IV 05/05/18 09:03 PRN PRN Hypotension during Dialysis Sodium Chloride 1,000 mls @ 50 mls/hr 05/06/18 09:30 05/06/18 11:35 Normal Saline - IV 05/07/18 09:30 50 mls/hr ASDIR [facility] Administration Insulin Aspart 1 vial 03/14/19 07:00 05/06/18 11:33 Novolog Vial Sliding Scale - SQ 6 units ACHS [facility] Administration Protocol Insulin Detemir 10 units 05/06/18 07:00 05/06/18 06:09 Levemir Vial SQ 10 units AM [facility] Administration Hvbvb-2-Mnot Ethyl Esters 1 gm 05/03/18 10:00 05/06/18 09:28 Lovaza - PO 1 gm DAILY [facility] Administration Pantoprazole Sodium 40 mg 05/03/18 10:00 05/06/18 09:28 Protonix - PO 40 mg DAILY [facility] Administration Laboratory Tests 05/03/18 05/04/18 02:00 05:50 Urine Eosinophils None seen ANDIE Screen Positive H ANDIE Homogeneous Pattern 1:80 c-ANCA Pending Proteinase 3 (PR3) Pending p-ANCA Pending Atypical p-ANCA Pending Myeloperoxidase Ab Pending Double Strand DNA Ab <1 Glomerular Base Memb Ab 4 Hep A IgM Ab Confirm Negative Hep Bs Antigen Negative Hep Bs Antibody Non reactive Impression 1. AUGUSTINE 2. hyperkalemia 3. DM 4. HTN 5. anemia 6. HLD 7. metabolic acidosis 8. positive andie Plan - repeat labs in am - cont fluids - do not discharge until renal function starts to improve - rheum eval for positive andie - serologies in progress - if discharged tomorrow she can go to my office on Thursday for bloodwork and can be seen on Thursday - discussed plan with family - do not restart metformin, thiazide or arb - likely resolving atn Dr Segovia
[2018-05-06] MEDS: ATORVASTATIN CA 20 MG TABLET (FP) PO SCH (21:33)
[2018-05-07 00:30] LABS: URINE APPEARANCE CLEAR; URINE BILIRUBIN NEGATIVE (<2.0 mg/dL); URINE COLOR STRAW; URINE GLUCOSE (UA) 1+ (NEGATIVE); URINE KETONE NEGATIVE (NEGATIVE); URINE LEUK ESTERASE TRACE (NEGATIVE); URINE NITRITE NEGATIVE (NEGATIVE); URINE PROTEIN NEGATIVE (NEGATIVE); URINE UROBILINOGEN NEGATIVE mg/dL (0.2-1.0)
[2018-05-07 00:35] LABS: URINE BACTERIA FEW /hpf (NONE SEEN)
[2018-05-07] MEDS: INSULIN (LEVEMIR) 100 UNITS/ML UNITS SQ SCH (06:46)
[2018-05-07 08:12] LABS: ALK PHOS 64 U/L (45-117); ANION GAP 13 MMOL/L (8-16); BILIRUBIN,TOTAL 0.5 mg/dL (0.2-1); BLOOD UREA NITROGEN 47 mg/dL (7-18); CALCIUM 7.3 mg/dL (8.5-10.1); CHLORIDE 97 mmol/L (98-107); CO2 21 mmol/L (21-32); CREATININE 6.6 mg/dL (0.55-1.3); GLUCOSE,RANDOM 183 mg/dL (74-106); POTASSIUM 3.9 mmol/L (3.5-5.1); SGOT/AST 23 U/L (15-37); SGPT/ALT 30 U/L (13-61); SODIUM 131 mmol/L (136-145); TOT PROT 6.2 g/dl (6.4-8.2)
[2018-05-07] MEDS: SODIUM CHLORIDE 1,000 ML IV SCH (09:00)
[2018-05-07] MEDS: CHOLECALCIFEROL (VIT D3) 1,000 UNIT (25 MCG) TABLET PO SCH (10:13)
[2018-05-07] MEDS: amLODIPine BESYLATE 5 MG TABLET (FP) PO SCH (10:13)
[2018-05-07] MEDS: ASPIRIN COATED 81 MG TABLET.EC PO SCH (10:13)
[2018-05-07] MEDS: PANTOPRAZOLE 40 MG TABLET (FP) PO SCH (10:13)
[2018-05-07] MEDS: FERROUS SO4 325 MG TABLET (FP) PO SCH (10:13)
[2018-05-07] MEDS: OMEGA-3 ACID ETHYL ESTERS (FATTY-ACIDS) 1 GM CAPSULE (FP) PO SCH (10:13)
[2018-05-07] MEDS: INSULIN SLIDING SCALE (NOVOLOG) 1 VIAL SQ SCH ×3 (13:00→21:50)
[2018-05-07] MEDS: HEPARIN NA (PORCINE) 5,000 UNITS/ML 1ML VIAL SQ SCH ×2 (13:30→21:47)
--- NOTE | 2018-05-07 14:46 | PN ---
Progress Note, Physician Chief Complaint: patient creatinine still elevated now 5.7 to 6.6 - Current Medication List Current Medications: Active Medications Amlodipine Besylate (Norvasc -) 10 mg PO DAILY [facility] Last Admin: 05/07/18 10:13 Dose: 10 mg Atorvastatin Calcium (Lipitor -) 20 mg PO HS [facility] Last Admin: 05/06/18 21:33 Dose: 20 mg Cholecalciferol (Vitamin D3 -) 2,000 unit PO DAILY [facility] Last Admin: 05/07/18 10:13 Dose: 2,000 unit Ferrous Sulfate (Feosol -) 325 mg PO DAILY [facility] Last Admin: 05/07/18 10:13 Dose: 325 mg Heparin Sodium (Porcine) (Heparin -) 5,000 unit SQ BID [facility] Last Admin: 05/07/18 13:30 Dose: Not Given Insulin Aspart (Novolog Vial Sliding Scale -) 1 vial SQ ACHS [facility]; Protocol Last Admin: 05/07/18 13:00 Dose: 4 units Insulin Detemir (Levemir Vial) 10 units SQ AM [facility] Last Admin: 05/07/18 06:46 Dose: 10 units Ionjj-6-Akju Ethyl Esters (Lovaza -) 1 gm PO DAILY [facility] Last Admin: 05/07/18 10:13 Dose: 1 gm Pantoprazole Sodium (Protonix -) 40 mg PO DAILY [facility] Last Admin: 05/07/18 10:13 Dose: 40 mg - Objective Vital Signs: Vital Signs Temperature 98 F 05/07/18 10:00 Pulse Rate 76 05/07/18 10:00 Respiratory Rate 20 05/07/18 10:00 Blood Pressure 158/76 05/07/18 10:00 O2 Sat by Pulse Oximetry (%) 94 L 05/07/18 09:00 Constitutional: Yes: Calm Cardiovascular: Yes: Regular Rate and Rhythm, S1, S2 Respiratory: Yes: CTA Bilaterally Gastrointestinal: Yes: Normal Bowel Sounds, Soft Neurological: Yes: Alert Labs: CBC, BMP 05/05/18 05:50 05/07/18 06:50 INR, PTT INR 1.00 (0.83-1.09) 05/02/18 16:50 Problem List - Problems (1) AUGUSTINE (acute kidney injury) Assessment/Plan: renal sono noted-morphologically normal kidneys renal on board renal function improving chatterjee cath metformin and ARB stopped lactic acidosis resolved cr increased form 5.7 t 6.6 positive JANEY rheum evaluation Code(s): N17.9 - ACUTE KIDNEY FAILURE, UNSPECIFIED (2) Leukocytosis Assessment/Plan: observe off abx rocephin stop cultures negative Microbiology 05/02/18 17:21 Urine - Urine Clean Catch Urine Culture - Final 05/04/18 06:15 Blood - Peripheral Venous Blood Culture - Preliminary NO GROWTH OBTAINED AFTER 48 HOURS, INCUBATION TO CONTINUE FOR 3 DAYS. 05/04/18 05:50 Blood - Peripheral Venous Blood Culture - Preliminary NO GROWTH OBTAINED AFTER 48 HOURS, INCUBATION TO CONTINUE FOR 3 DAYS. Code(s): D72.829 - ELEVATED WHITE BLOOD CELL COUNT, UNSPECIFIED (3) HLD (hyperlipidemia) Assessment/Plan: statin lipid panel noted Code(s): E78.5 - HYPERLIPIDEMIA, UNSPECIFIED (4) Diabetes Assessment/Plan: bgm sliding scale hold oral hypoglycemic hgba1c 7.1 endo eval noted levemir Code(s): E11.9 - TYPE 2 DIABETES MELLITUS WITHOUT COMPLICATIONS Qualifiers: Diabetes mellitus type: type 2 (5) HTN (hypertension) Assessment/Plan: hold ARB and thiazide diuretic given increase bun/cr start norvasc echo show normal left ventricle function and size is normal no pericardial effusion Code(s): I10 - ESSENTIAL (PRIMARY) HYPERTENSION
[2018-05-07 15:23] LABS: ATYPICAL pANCA <1:20 titer (Neg:<1:20); C-ANCA <1:20 titer (Neg:<1:20); P-ANCA <1:20 titer (Neg:<1:20)
--- NOTE | 2018-05-07 15:37 | CONSULT ---
Consult Consult Specialty:: Rheumatology - History of Present Illness History of Present Illness: 78 year old female with history of of DM, HTN, anemia and HLD who was admitted with acute renal failure and hyperkalemia and she was found to have a positive JANEY. The patient reports she had a 4 day history of general malaise, lethargy and diffuse aches. She denies joint pain, skin rash, shortness of breath, chest pain, abdominal pain, diarrhea or fever. Laboratory work-up revealed on admission creatinine 7.1. She had 2 dialysis, on 05/05/ creatinine was 4.7 and today 6.6. Urinalysis on admission protein 2+ and blood 1+ and today no protein and blood 1+. ESR 104. JANEY was 1:80 with homogeneous pattern, anti-DNAds and anti-glomerular basement membrane antibody were negative. ANCA and CH50 are pending. - History Source History Provided By: Patient, Medical Record - Past Medical History Cardio/Vascular: Yes: HTN, Hyperlipdemia Endocrine: Yes: Diabetes Mellitus - Alcohol/Substance Use Hx Alcohol Use: No - Smoking History Smoking history: Never smoked Have you smoked in the past 12 months: No Home Medications - Allergies Allergies/Adverse Reactions: Allergies Allergy/AdvReac Type Severity Reaction Status Date / Time No Known Allergies Allergy Verified 05/02/18 16:08 - Home Medications Home Medications: Ambulatory Orders Alendronate Sodium [Binosto] 70 mg PO WEEKLY 05/02/18 Aspirin [Adult Aspirin Regimen] 81 mg PO DAILY 05/02/18 Atorvastatin Calcium [Lipitor] 20 mg PO HS 05/02/18 Cholecalciferol (Vitamin D3) [D-2000] 2,000 unit PO DAILY 05/02/18 Dapagliflozin Propanediol [Farxiga] 10 mg PO DAILY 05/02/18 Ferrous Sulfate [Feosol] 325 mg PO DAILY 05/02/18 Fluticasone Prop 0.05% Nasal [Flonase -] 1 - 2 spray NS BID 05/02/18 Glyburide/Metformin HCl [Glyburide-Metformin 5-500 mg] 2 tab PO BID 05/02/18 [place]-3 Fatty Acids/Fish Oil [Fish Oil 1,000 mg Capsule] 1 each PO DAILY Pantoprazole Sodium [Protonix] 40 mg PO DAILY 05/02/18 Sitagliptin Phosphate [Januvia] 100 mg PO DAILY 05/02/18 Valsartan/Hydrochlorothiazide [Valsartan-Hctz 80-12.5 mg Tab] 1 each PO DAILY Review of Systems - Review of Systems Constitutional: reports: Malaise Eyes: reports: No Symptoms HENT: reports: No Symptoms Neck: reports: No Symptoms Cardiovascular: reports: No Symptoms Respiratory: reports: No Symptoms Gastrointestinal: reports: No Symptoms Musculoskeletal: reports: Muscle Pain Integumentary: reports: No Symptoms Physical Exam Vital Signs: Vital Signs Temperature 98 F 05/07/18 10:00 Pulse Rate 76 05/07/18 10:00 Respiratory Rate 20 05/07/18 10:00 Blood Pressure 158/76 05/07/18 10:00 O2 Sat by Pulse Oximetry (%) 94 L 05/07/18 09:00 Constitutional: Yes: Mild Distress Eyes: Yes: WNL HENT: Yes: WNL Neck: Yes: WNL Cardiovascular: Yes: WNL Respiratory: Yes: Other (Bilateral basal crackles.) Gastrointestinal: Yes: WNL Musculoskeletal: Yes: Other (No active joints.) Labs: CBC, BMP 05/05/18 05:50 05/07/18 06:50 Laboratory Tests 05/04/18 05/06/18 05/07/18 05:50 21:30 06:50 ESR Calcium 7.3 L Total Bilirubin 0.5 AST 23 ALT 30 Alkaline Phosphatase 64 Total Protein 6.2 L Albumin 3.0 L Urine Appearance Clear Urine pH 7.0 D Ur Specific [place] 1.004 L Urine Protein Negative Urine Glucose (UA) 1+ H Urine Ketones Negative Urine Blood 1+ H Urine Nitrite Negative Urine Bilirubin Negative Urine Urobilinogen Negative Ur Leukocyte Esterase Trace JANEY Screen Positive H JANEY Homogeneous Pattern 1:80 Double Strand DNA Ab <1 Glomerular Base Memb Ab 4 05/07/18 06:50 ESR 104 H Calcium Total Bilirubin AST ALT Alkaline Phosphatase Total Protein Albumin Urine Appearance Urine pH Ur Specific [place] Urine Protein Urine Glucose (UA) Urine Ketones Urine Blood Urine Nitrite Urine Bilirubin Urine Urobilinogen Ur Leukocyte Esterase JANEY Screen JANEY Homogeneous Pattern Double Strand DNA Ab Glomerular Base Memb Ab Problem List - Problems (1) AUGUSTINE (acute kidney injury) Assessment/Plan: Patient admitted with acute renal failure. Apparently she had a viral disease prior to the onset of disease. JANEY is positive at a low titer and anti-DNAds negative. Even though the differential diagnosis includes connective tissue diseases, there are no other clinical changes suggestive of lupus or vasculitis , and other serology is pending. As per my discussion with Dr. Segovia, she is not a candidate for a kidney biopsy at this time. Continue same medications and will evaluate progression. Code(s): N17.9 - ACUTE KIDNEY FAILURE, UNSPECIFIED
--- NOTE | 2018-05-07 20:34 | PN ---
Progress Note (short form) - Note Progress Note: covering dr elmore Problems 1. AUGUSTINE 2. hyperkalemia 3. DM 4. HTN 5. anemia 6. HLD 7. metabolic acidosis 8. positive andie Current Medications Amlodipine Besylate (Norvasc -) 10 mg PO DAILY [facility] Last Admin: 05/07/18 10:13 Dose: 10 mg Atorvastatin Calcium (Lipitor -) 20 mg PO HS [facility] Last Admin: 05/06/18 21:33 Dose: 20 mg Cholecalciferol (Vitamin D3 -) 2,000 unit PO DAILY [facility] Last Admin: 05/07/18 10:13 Dose: 2,000 unit Ferrous Sulfate (Feosol -) 325 mg PO DAILY [facility] Last Admin: 05/07/18 10:13 Dose: 325 mg Heparin Sodium (Porcine) (Heparin -) 5,000 unit SQ BID [facility] Last Admin: 05/07/18 13:30 Dose: Not Given Insulin Aspart (Novolog Vial Sliding Scale -) 1 vial SQ ACHS [facility]; Protocol Last Admin: 05/07/18 18:24 Dose: 6 units Insulin Detemir (Levemir Vial) 10 units SQ AM [facility] Last Admin: 05/07/18 06:46 Dose: 10 units Fhisq-9-Rtff Ethyl Esters (Lovaza -) 1 gm PO DAILY [facility] Last Admin: 05/07/18 10:13 Dose: 1 gm Pantoprazole Sodium (Protonix -) 40 mg PO DAILY [facility] Last Admin: 05/07/18 10:13 Dose: 40 mg Last Vital Signs Temp Pulse Resp BP Pulse Ox 98 F 76 20 155/70 94 L 05/07/18 18:38 05/07/18 18:38 05/07/18 18:38 05/07/18 18:38 05/07/18 09:00 Intake & Output 05/07/18 05/07/18 05/07/18 07:59 15:59 23:59 Intake Total 270 Output Total 800 Balance -800 270 Weight 171 lb 6.4 oz CBC, BMP 05/05/18 05:50 05/07/18 06:50 Plan consider HD tomorrow if not better
[2018-05-07] MEDS: ATORVASTATIN CA 20 MG TABLET (FP) PO SCH (21:51)
[2018-05-08] MEDS: INSULIN (LEVEMIR) 100 UNITS/ML UNITS SQ SCH (06:23)
[2018-05-08] MEDS: INSULIN SLIDING SCALE (NOVOLOG) 1 VIAL SQ SCH ×3 (06:23→22:00)
[2018-05-08 07:19] LABS: BASO % 0.2 % (0-2.0); EOS % 1.5 % (0-4.5); HEMATOCRIT 25.2 % (32.4-45.2); HEMOGLOBIN 8.8 GM/dL (10.7-15.3); LYMPH % 18.7 % (8-40); MCH 29.2 pg (25.7-33.7); MCHC 34.7 g/dl (32.0-36.0); MEAN CELL VOLUME 84.1 fl (80-96); MEAN PLT VOLUME 9.3 fl (7.5-11.1); MONO % 7.9 % (3.8-10.2); NEUT % 71.7 % (42.8-82.8); PLATELET COUNT 360 K/MM3 (134-434); RDW 15.2 % (11.6-15.6); WHITE BLOOD COUNT 9.2 K/mm3 (4.0-10.0)
[2018-05-08 07:51] LABS: ALBUMIN 2.8 g/dl (3.4-5.0); ALK PHOS 71 U/L (45-117); ANION GAP 12 MMOL/L (8-16); BILIRUBIN,TOTAL 0.5 mg/dL (0.2-1); BLOOD UREA NITROGEN 61 mg/dL (7-18); CHLORIDE 98 mmol/L (98-107); CO2 21 mmol/L (21-32); GLUCOSE,RANDOM 137 mg/dL (74-106); POTASSIUM 3.9 mmol/L (3.5-5.1); SGOT/AST 30 U/L (15-37); SGPT/ALT 37 U/L (13-61); SODIUM 132 mmol/L (136-145)
[2018-05-08 08:09] LABS: CALCIUM 6.8 mg/dL (8.5-10.1)
[2018-05-08] MEDS: OMEGA-3 ACID ETHYL ESTERS (FATTY-ACIDS) 1 GM CAPSULE (FP) PO SCH ×2 (10:29→13:02)
[2018-05-08] MEDS: PANTOPRAZOLE 40 MG TABLET (FP) PO SCH ×2 (10:29→13:02)
[2018-05-08] MEDS: amLODIPine BESYLATE 5 MG TABLET (FP) PO SCH ×2 (10:29→13:00)
[2018-05-08] MEDS: HEPARIN NA (PORCINE) 5,000 UNITS/ML 1ML VIAL SQ SCH ×2 (10:29→21:50)
[2018-05-08] MEDS: FERROUS SO4 325 MG TABLET (FP) PO SCH ×2 (10:29→13:01)
[2018-05-08] MEDS: CHOLECALCIFEROL (VIT D3) 1,000 UNIT (25 MCG) TABLET PO SCH ×2 (10:30→13:01)
--- NOTE | 2018-05-08 12:07 | PN ---
Progress Note (short form) - Note Progress Note: covering dr elmore Problems 1. AUGUSTINE 2. hyperkalemia 3. DM 4. HTN 5. anemia 6. HLD 7. metabolic acidosis 8. positive andie renal function is not getting better Labs today - rising bun/creatinine no hyperkalemia clinically no worse- no sob, no malaise or nausea CBC, BMP 05/08/18 06:35 05/08/18 06:35 Last Vital Signs Temp Pulse Resp BP Pulse Ox 98.1 F 84 20 155/80 96 05/08/18 05:49 05/08/18 05:49 05/08/18 05:49 05/08/18 05:49 05/07/18 21:00 Intake & Output 05/07/18 05/08/18 05/08/18 23:59 07:59 15:59 Intake Total 470 0 Balance 470 0 Weight 173 lb 3.2 oz Lungs clear Heart reg Abd soft nontender ext no edema CBC, [facility] 05/05/18 05:50 05/07/18 06:50 IMP- augustine non oliguric not yet improving no urgent need for dialysis today Plan- keep vascular on standby monitor chemistries and clinical status aand symptoms of uremia daily
--- NOTE | 2018-05-08 16:39 | PN ---
Progress Note, Physician Chief Complaint: AUGUSTINE hyponatremia DM2 HTN History of Present Illness: NAD awake family at bedside - Current Medication List Current Medications: Active Medications Amlodipine Besylate (Norvasc -) 10 mg PO DAILY [facility] Last Admin: 05/08/18 13:00 Dose: 10 mg Atorvastatin Calcium (Lipitor -) 20 mg PO HS [facility] Last Admin: 05/07/18 21:51 Dose: 20 mg Cholecalciferol (Vitamin D3 -) 2,000 unit PO DAILY [facility] Last Admin: 05/08/18 13:01 Dose: 2,000 unit Ferrous Sulfate (Feosol -) 325 mg PO DAILY [facility] Last Admin: 05/08/18 13:01 Dose: 325 mg Heparin Sodium (Porcine) (Heparin -) 5,000 unit SQ BID [facility] Last Admin: 05/08/18 10:29 Dose: Not Given Insulin Aspart (Novolog Vial Sliding Scale -) 1 vial SQ ACHS [facility]; Protocol Last Admin: 05/08/18 06:23 Dose: Not Given Insulin Detemir (Levemir Vial) 10 units SQ AM [facility] Last Admin: 05/08/18 06:23 Dose: Not Given Vwiyj-6-Zojb Ethyl Esters (Lovaza -) 1 gm PO DAILY [facility] Last Admin: 05/08/18 13:02 Dose: 1 gm Pantoprazole Sodium (Protonix -) 40 mg PO DAILY [facility] Last Admin: 05/08/18 13:02 Dose: 40 mg - Objective Vital Signs: Vital Signs Temperature 98.1 F 05/08/18 05:49 Pulse Rate 84 05/08/18 05:49 Respiratory Rate 20 05/08/18 05:49 Blood Pressure 155/80 05/08/18 05:49 O2 Sat by Pulse Oximetry (%) 96 05/07/18 21:00 Constitutional: Yes: Well Nourished, No Distress, Calm Cardiovascular: Yes: Regular Rate and Rhythm Respiratory: Yes: Regular Gastrointestinal: Yes: Normal Bowel Sounds, Soft Musculoskeletal: Yes: WNL Extremities: Yes: WNL Edema: No Peripheral Pulses WNL: Yes Neurological: Yes: Alert, Oriented Psychiatric: Yes: Alert, Oriented Labs: CBC, BMP 05/08/18 06:35 05/08/18 06:35 INR, PTT INR 1.00 (0.83-1.09) 05/02/18 16:50 Problem List - Problems (1) AUGUSTINE (acute kidney injury) Assessment/Plan: -nephrology on board -dialysis as per renal -monitor trend Code(s): N17.9 - ACUTE KIDNEY FAILURE, UNSPECIFIED (2) Anemia Assessment/Plan: -Iron borderline -started on Feosol -stool ob negative -B 12 low -B 12 inj -check erythropoetin -epogen as per nephrology discretion -monitor trend Code(s): D64.9 - ANEMIA, UNSPECIFIED (3) Diabetes Assessment/Plan: -BGM AC HS -diabetic renal diet -A1c 7.7 -Novolog sliding scale -Levemir 10 U in AM -Endocrinology on board Code(s): E11.9 - TYPE 2 DIABETES MELLITUS WITHOUT COMPLICATIONS Qualifiers: Diabetes mellitus type: type 2 (4) HTN (hypertension) Assessment/Plan: -continue amlodipine Code(s): I10 - ESSENTIAL (PRIMARY) HYPERTENSION Assessment/Plan see problem list Physical therapy
[2018-05-08] MEDS: ATORVASTATIN CA 20 MG TABLET (FP) PO SCH (21:51)
[2018-05-09 04:08] LABS: SERUM IRON SATURATION 15 % (15-55); TOTAL IRON BINDING CAPACITY 265 ug/dL (250-450); UIBC 225 ug/dL (118-369)
[2018-05-09] MEDS: INSULIN SLIDING SCALE (NOVOLOG) 1 VIAL SQ SCH ×5 (06:27→21:44)
[2018-05-09] MEDS: INSULIN (LEVEMIR) 100 UNITS/ML UNITS SQ SCH (06:29)
[2018-05-09 07:23] LABS: ALBUMIN 3.2 g/dl (3.4-5.0); ALK PHOS 78 U/L (45-117); ANION GAP 15 MMOL/L (8-16); BILIRUBIN,TOTAL 0.5 mg/dL (0.2-1); BLOOD UREA NITROGEN 71 mg/dL (7-18); CALCIUM 7.5 mg/dL (8.5-10.1); CHLORIDE 96 mmol/L (98-107); CO2 20 mmol/L (21-32); GLUCOSE,RANDOM 174 mg/dL (74-106); PHOSPHOROUS 5.4 mg/dL (2.5-4.9); POTASSIUM 4.1 mmol/L (3.5-5.1); SGOT/AST 28 U/L (15-37); SGPT/ALT 40 U/L (13-61); SODIUM 131 mmol/L (136-145); TOT PROT 6.6 g/dl (6.4-8.2)
[2018-05-09 07:47] LABS: CREATININE 7.8 mg/dL (0.55-1.3)
[2018-05-09] MEDS: CHOLECALCIFEROL (VIT D3) 1,000 UNIT (25 MCG) TABLET PO SCH (10:35)
[2018-05-09] MEDS: PANTOPRAZOLE 40 MG TABLET (FP) PO SCH (10:36)
[2018-05-09] MEDS: FERROUS SO4 325 MG TABLET (FP) PO SCH (10:36)
[2018-05-09] MEDS: amLODIPine BESYLATE 5 MG TABLET (FP) PO SCH (10:36)
[2018-05-09] MEDS: HEPARIN NA (PORCINE) 5,000 UNITS/ML 1ML VIAL SQ SCH (10:36)
[2018-05-09] MEDS: OMEGA-3 ACID ETHYL ESTERS (FATTY-ACIDS) 1 GM CAPSULE (FP) PO SCH (10:36)
[2018-05-09 12:41] VITALS: BMI 30.2
[2018-05-09 17:14] LABS: URINE APPEARANCE CLEAR; URINE BILIRUBIN NEGATIVE (<2.0 mg/dL); URINE COLOR COLORLESS; URINE GLUCOSE (UA) 2+ (NEGATIVE); URINE KETONE NEGATIVE (NEGATIVE); URINE LEUK ESTERASE NEGATIVE (NEGATIVE); URINE NITRITE NEGATIVE (NEGATIVE); URINE PROTEIN 1+ (NEGATIVE); URINE UROBILINOGEN NEGATIVE mg/dL (0.2-1.0)
--- NOTE | 2018-05-09 17:23 | PN ---
Progress Note (short form) - Note Progress Note: covering dr elmore Problems 1. AUGUSTINE 2. hyperkalemia 3. DM 4. HTN 5. anemia 6. HLD 7. metabolic acidosis 8. positive andie Current Medications Amlodipine Besylate (Norvasc -) 10 mg PO DAILY [facility] Last Admin: 05/09/18 10:36 Dose: 10 mg Atorvastatin Calcium (Lipitor -) 20 mg PO HS [facility] Last Admin: 05/08/18 21:51 Dose: 20 mg Calcium Acetate (Phoslo -) 667 mg PO TIDCM [facility] Cholecalciferol (Vitamin D3 -) 2,000 unit PO DAILY [facility] Last Admin: 05/09/18 10:35 Dose: 2,000 unit Ferrous Sulfate (Feosol -) 325 mg PO DAILY [facility] Last Admin: 05/09/18 10:36 Dose: 325 mg Heparin Sodium (Porcine) (Heparin -) 5,000 unit SQ BID [facility] Last Admin: 05/09/18 10:36 Dose: 5,000 unit Insulin Aspart (Novolog Vial Sliding Scale -) 1 vial SQ ACHS [facility]; Protocol Last Admin: 05/09/18 12:51 Dose: 4 units Insulin Detemir (Levemir Vial) 10 units SQ AM [facility] Last Admin: 05/09/18 06:29 Dose: 10 units Mshuv-6-Uziy Ethyl Esters (Lovaza -) 1 gm PO DAILY [facility] Last Admin: 05/09/18 10:36 Dose: 1 gm Pantoprazole Sodium (Protonix -) 40 mg PO DAILY [facility] Last Admin: 05/09/18 10:36 Dose: 40 mg Last Vital Signs Temp Pulse Resp BP Pulse Ox 98.2 F 88 20 150/63 98 05/09/18 14:18 05/09/18 14:18 05/09/18 14:18 05/09/18 14:18 05/09/18 09:00 Lungs clear Heart reg Abd soft nontender ext no edema CBC, BMP 05/09/18 05:30 CBC, BMP 05/08/18 06:35 05/08/18 06:35 CBC, BMP 05/05/18 05:50 05/07/18 06:50 IMP- augustine non oliguric azotemia is not yet plateauing Hyponatremia is worsening not yet improving no urgent need for dialysis today Labs today - still rising bun/creatinine no hyperkalemia clinically no worse- no sob, no malaise or nausea Plan- keep vascular on standby monitor chemistries and clinical status and symptoms of uremia daily
[2018-05-09] MEDS: CALCIUM ACETATE 667 MG CAPSULE (FP) PO SCH (18:11)
[2018-05-09] MEDS: ATORVASTATIN CA 20 MG TABLET (FP) PO SCH (21:45)
--- NOTE | 2018-05-09 23:25 | PN ---
Progress Note, Physician Chief Complaint: AUGUSTINE hyponatremia DM2 HTN History of Present Illness: NAD awake family at bedside - Current Medication List Current Medications: Active Medications Amlodipine Besylate (Norvasc -) 10 mg PO DAILY [facility] Last Admin: 05/09/18 10:36 Dose: 10 mg Atorvastatin Calcium (Lipitor -) 20 mg PO HS [facility] Last Admin: 05/09/18 21:45 Dose: 20 mg Calcium Acetate (Phoslo -) 667 mg PO TIDCM [facility] Last Admin: 05/09/18 18:11 Dose: 667 mg Cholecalciferol (Vitamin D3 -) 2,000 unit PO DAILY [facility] Last Admin: 05/09/18 10:35 Dose: 2,000 unit Ferrous Sulfate (Feosol -) 325 mg PO DAILY [facility] Last Admin: 05/09/18 10:36 Dose: 325 mg Insulin Aspart (Novolog Vial Sliding Scale -) 1 vial SQ ACHS [facility]; Protocol Last Admin: 05/09/18 21:44 Dose: 4 units Insulin Detemir (Levemir Vial) 10 units SQ AM [facility] Last Admin: 05/09/18 06:29 Dose: 10 units Zxswg-7-Efbr Ethyl Esters (Lovaza -) 1 gm PO DAILY [facility] Last Admin: 05/09/18 10:36 Dose: 1 gm Pantoprazole Sodium (Protonix -) 40 mg PO DAILY [facility] Last Admin: 05/09/18 10:36 Dose: 40 mg - Objective Vital Signs: Vital Signs Temperature 97.8 F 05/09/18 22:00 Pulse Rate 88 05/09/18 22:00 Respiratory Rate 18 05/09/18 22:00 Blood Pressure 145/75 05/09/18 22:00 O2 Sat by Pulse Oximetry (%) 97 05/09/18 21:00 Constitutional: Yes: Well Nourished, No Distress, Calm Cardiovascular: Yes: Regular Rate and Rhythm Respiratory: Yes: Regular Gastrointestinal: Yes: Normal Bowel Sounds, Soft, Abdomen, Obese Musculoskeletal: Yes: Muscle Weakness Extremities: Yes: WNL Edema: No Peripheral Pulses WNL: Yes Neurological: Yes: Alert, Oriented Psychiatric: Yes: Alert, Oriented Labs: CBC, BMP 05/08/18 06:35 05/09/18 05:30 INR, PTT INR 1.00 (0.83-1.09) 05/02/18 16:50 Problem List - Problems (1) Anemia Assessment/Plan: -Iron borderline -started on Feosol -stool ob negative -B 12 low -B 12 inj -check erythropoetin -epogen as per nephrology discretion -monitor trend Code(s): D64.9 - ANEMIA, UNSPECIFIED (2) AUGUSTINE (acute kidney injury) Assessment/Plan: -nephrology on board -dialysis as per renal -monitor trend Code(s): N17.9 - ACUTE KIDNEY FAILURE, UNSPECIFIED (3) Diabetes Assessment/Plan: -BGM AC HS -diabetic renal diet -A1c 7.7 -Novolog sliding scale -Levemir 10 U in AM -Endocrinology on board Code(s): E11.9 - TYPE 2 DIABETES MELLITUS WITHOUT COMPLICATIONS Qualifiers: Diabetes mellitus type: type 2 (4) HTN (hypertension) Assessment/Plan: -continue amlodipine Code(s): I10 - ESSENTIAL (PRIMARY) HYPERTENSION Assessment/Plan see problem list
[2018-05-10] MEDS: INSULIN (LEVEMIR) 100 UNITS/ML UNITS SQ SCH (06:17)
[2018-05-10] MEDS: INSULIN SLIDING SCALE (NOVOLOG) 1 VIAL SQ SCH ×5 (06:17→22:13)
[2018-05-10 06:37] LABS: BASO % 0.4 % (0-2.0); EOS % 1.8 % (0-4.5); HEMATOCRIT 26.5 % (32.4-45.2); HEMOGLOBIN 9.5 GM/dL (10.7-15.3); LYMPH % 19.5 % (8-40); MCH 30.2 pg (25.7-33.7); MEAN CELL VOLUME 83.9 fl (80-96); MEAN PLT VOLUME 8.7 fl (7.5-11.1); MONO % 7.7 % (3.8-10.2); NEUT % 70.6 % (42.8-82.8); PLATELET COUNT 454 K/MM3 (134-434); RBC 3.16 M/mm3 (3.60-5.2); RDW 15.6 % (11.6-15.6); WHITE BLOOD COUNT 10.9 K/mm3 (4.0-10.0)
[2018-05-10 07:06] LABS: ALBUMIN 3.4 g/dl (3.4-5.0); ALK PHOS 93 U/L (45-117); ANION GAP 13 MMOL/L (8-16); BILIRUBIN,TOTAL 0.5 mg/dL (0.2-1); BLOOD UREA NITROGEN 74 mg/dL (7-18); CALCIUM 7.3 mg/dL (8.5-10.1); CHLORIDE 99 mmol/L (98-107); CO2 21 mmol/L (21-32); GLUCOSE,RANDOM 130 mg/dL (74-106); SGOT/AST 28 U/L (15-37); SGPT/ALT 40 U/L (13-61); SODIUM 133 mmol/L (136-145)
[2018-05-10 07:07] LABS: CREATININE 8.2 mg/dL (0.55-1.3)
[2018-05-10] MEDS: CHOLECALCIFEROL (VIT D3) 1,000 UNIT (25 MCG) TABLET PO SCH (09:50)
[2018-05-10] MEDS: OMEGA-3 ACID ETHYL ESTERS (FATTY-ACIDS) 1 GM CAPSULE (FP) PO SCH (09:50)
[2018-05-10] MEDS: CALCIUM ACETATE 667 MG CAPSULE (FP) PO SCH ×3 (09:51→17:59)
[2018-05-10] MEDS: amLODIPine BESYLATE 5 MG TABLET (FP) PO SCH (09:51)
[2018-05-10] MEDS: PANTOPRAZOLE 40 MG TABLET (FP) PO SCH (09:51)
[2018-05-10] MEDS: FERROUS SO4 325 MG TABLET (FP) PO SCH (09:51)
[2018-05-10] MEDS: CYANOCOBALAMIN (VITAMIN B-12) 1000 MCG/1 ML VIAL IM SCH (09:52)
--- NOTE | 2018-05-10 11:54 | PN ---
Progress Note, Physician Chief Complaint: awake and alert renal function noted no confusion, alert oriented - Current Medication List Current Medications: Active Medications Amlodipine Besylate (Norvasc -) 10 mg PO DAILY [facility] Last Admin: 05/10/18 09:51 Dose: 10 mg Atorvastatin Calcium (Lipitor -) 20 mg PO HS [facility] Last Admin: 05/09/18 21:45 Dose: 20 mg Calcium Acetate (Phoslo -) 667 mg PO TIDCM [facility] Last Admin: 05/10/18 09:51 Dose: 667 mg Cholecalciferol (Vitamin D3 -) 2,000 unit PO DAILY [facility] Last Admin: 05/10/18 09:50 Dose: 2,000 unit Cyanocobalamin (Vitamin B12 Injection -) 1,000 mcg IM DAILY [facility] Last Admin: 05/10/18 09:52 Dose: 1,000 mcg Ferrous Sulfate (Feosol -) 325 mg PO DAILY [facility] Last Admin: 05/10/18 09:51 Dose: 325 mg Insulin Aspart (Novolog Vial Sliding Scale -) 1 vial SQ [facility]; Protocol Last Admin: 05/10/18 06:17 Dose: Not Given Insulin Detemir (Levemir Vial) 10 units SQ AM [facility] Last Admin: 05/10/18 06:17 Dose: Not Given Omzyj-1-Owox Ethyl Esters (Lovaza -) 1 gm PO DAILY [facility] Last Admin: 05/10/18 09:50 Dose: 1 gm Pantoprazole Sodium (Protonix -) 40 mg PO DAILY [facility] Last Admin: 05/10/18 09:51 Dose: 40 mg - Objective Vital Signs: Vital Signs Temperature 98.1 F 05/10/18 06:00 Pulse Rate 84 05/10/18 06:00 Respiratory Rate 18 05/10/18 09:00 Blood Pressure 138/58 L 05/10/18 06:00 O2 Sat by Pulse Oximetry (%) 97 05/10/18 09:00 Constitutional: Yes: Calm Cardiovascular: Yes: Regular Rate and Rhythm, S1, S2 Respiratory: Yes: CTA Bilaterally, Diminished (at bases) Gastrointestinal: Yes: Normal Bowel Sounds, Soft Edema: Yes Neurological: Yes: Alert, Oriented Labs: CBC, BMP 05/10/18 05:30 05/10/18 05:30 INR, PTT INR 1.00 (0.83-1.09) 05/02/18 16:50 Problem List - Problems (1) AUGUSTINE (acute kidney injury) Assessment/Plan: renal sono noted-morphologically normal kidneys renal on board chatterjee cath DC metformin and ARB stopped lactic acidosis resolved cr increased form 5.7 t 6.6 to 8.2 positive JANEY rheum evaluation noted HD defer to renal team Code(s): N17.9 - ACUTE KIDNEY FAILURE, UNSPECIFIED (2) Leukocytosis Assessment/Plan: observe off abx rocephin stop cultures negative Microbiology 05/02/18 17:21 Urine - Urine Clean Catch Urine Culture - Final 05/04/18 06:15 Blood - Peripheral Venous Blood Culture - Preliminary NO GROWTH OBTAINED AFTER 48 HOURS, INCUBATION TO CONTINUE FOR 3 DAYS. 05/04/18 05:50 Blood - Peripheral Venous Blood Culture - Preliminary NO GROWTH OBTAINED AFTER 48 HOURS, INCUBATION TO CONTINUE FOR 3 DAYS. Code(s): D72.829 - ELEVATED WHITE BLOOD CELL COUNT, UNSPECIFIED (3) HLD (hyperlipidemia) Assessment/Plan: statin lipid panel noted Code(s): E78.5 - HYPERLIPIDEMIA, UNSPECIFIED (4) Diabetes Assessment/Plan: bgm sliding scale hold oral hypoglycemic hgba1c 7.1 endo eval noted levemir Code(s): E11.9 - TYPE 2 DIABETES MELLITUS WITHOUT COMPLICATIONS Qualifiers: Diabetes mellitus type: type 2 (5) HTN (hypertension) Assessment/Plan: hold ARB and thiazide diuretic given increase bun/cr start norvasc echo show normal left ventricle function and size is normal no pericardial effusion Code(s): I10 - ESSENTIAL (PRIMARY) HYPERTENSION
--- NOTE | 2018-05-10 14:28 | PN ---
Progress Note (short form) - Note Progress Note: covering dr elmore Problems 1. AUGUSTINE 2. hyperkalemia 3. DM 4. HTN 5. anemia 6. HLD 7. metabolic acidosis 8. positive andie Current Medications Amlodipine Besylate (Norvasc -) 10 mg PO DAILY [facility] Last Admin: 05/10/18 09:51 Dose: 10 mg Atorvastatin Calcium (Lipitor -) 20 mg PO HS [facility] Last Admin: 05/09/18 21:45 Dose: 20 mg Calcium Acetate (Phoslo -) 667 mg PO TIDCM [facility] Last Admin: 05/10/18 12:46 Dose: 667 mg Cholecalciferol (Vitamin D3 -) 2,000 unit PO DAILY [facility] Last Admin: 05/10/18 09:50 Dose: 2,000 unit Cyanocobalamin (Vitamin B12 Injection -) 1,000 mcg IM DAILY [facility] Last Admin: 05/10/18 09:52 Dose: 1,000 mcg Ferrous Sulfate (Feosol -) 325 mg PO DAILY [facility] Last Admin: 05/10/18 09:51 Dose: 325 mg Insulin Aspart (Novolog Vial Sliding Scale -) 1 vial SQ ACHS [facility]; Protocol Last Admin: 05/10/18 12:46 Dose: 8 units Insulin Detemir (Levemir Vial) 10 units SQ AM [facility] Last Admin: 05/10/18 06:17 Dose: Not Given Ggmyd-6-Nodx Ethyl Esters (Lovaza -) 1 gm PO DAILY [facility] Last Admin: 05/10/18 09:50 Dose: 1 gm Pantoprazole Sodium (Protonix -) 40 mg PO DAILY [facility] Last Admin: 05/10/18 09:51 Dose: 40 mg Last Vital Signs Temp Pulse Resp BP Pulse Ox 98.1 F 84 18 138/58 L 97 05/10/18 06:00 05/10/18 06:00 05/10/18 09:00 05/10/18 06:00 05/10/18 09:00 Lungs clear Heart reg Abd soft nontender ext no edema CBC, BMP 05/10/18 05:30 05/10/18 05:30 CBC, BMP 05/09/18 05:30 IMP- augustine non oliguric azotemia is not yet plateauing Hyponatremia is worsening not yet improving no urgent need for dialysis today renal function is not getting better Labs today - still rising bun/creatinine no hyperkalemia clinically no worse- no sob, no malaise or nausea Plan- discussed with dr elmore again - continue monitor chemistries and clinical status and symptoms of uremia daily
[2018-05-10] MEDS: ATORVASTATIN CA 20 MG TABLET (FP) PO SCH (22:13)
[2018-05-11 06:32] LABS: BASO % 0.5 % (0-2.0); EOS % 2.7 % (0-4.5); HEMATOCRIT 24.7 % (32.4-45.2); HEMOGLOBIN 8.6 GM/dL (10.7-15.3); LYMPH % 21.8 % (8-40); MCH 29.5 pg (25.7-33.7); MCHC 34.8 g/dl (32.0-36.0); MEAN CELL VOLUME 84.6 fl (80-96); MEAN PLT VOLUME 8.8 fl (7.5-11.1); MONO % 8.8 % (3.8-10.2); NEUT % 66.2 % (42.8-82.8); PLATELET COUNT 425 K/MM3 (134-434); RBC 2.92 M/mm3 (3.60-5.2); RDW 15.4 % (11.6-15.6); WHITE BLOOD COUNT 9.2 K/mm3 (4.0-10.0)
[2018-05-11 07:38] LABS: ALBUMIN 3.2 g/dl (3.4-5.0); ALK PHOS 74 U/L (45-117); ANION GAP 12 MMOL/L (8-16); BILIRUBIN,TOTAL 0.4 mg/dL (0.2-1); BLOOD UREA NITROGEN 82 mg/dL (7-18); CHLORIDE 103 mmol/L (98-107); CO2 21 mmol/L (21-32); GLUCOSE,RANDOM 171 mg/dL (74-106); POTASSIUM 4.1 mmol/L (3.5-5.1); SGOT/AST 16 U/L (15-37); SGPT/ALT 36 U/L (13-61); SODIUM 135 mmol/L (136-145); TOT PROT 6.5 g/dl (6.4-8.2)
[2018-05-11] MEDS: INSULIN SLIDING SCALE (NOVOLOG) 1 VIAL SQ SCH ×4 (08:00→21:24)
[2018-05-11 08:05] LABS: CREATININE 8.2 mg/dL (0.55-1.3)
[2018-05-11] MEDS: CALCIUM ACETATE 667 MG CAPSULE (FP) PO SCH ×3 (08:09→16:50)
[2018-05-11] MEDS: INSULIN (LEVEMIR) 100 UNITS/ML UNITS SQ SCH (08:09)
--- NOTE | 2018-05-11 08:54 | PN ---
Progress Note, Physician - Current Medication List Current Medications: Active Medications Amlodipine Besylate (Norvasc -) 10 mg PO DAILY [facility] Last Admin: 05/10/18 09:51 Dose: 10 mg Atorvastatin Calcium (Lipitor -) 20 mg PO HS [facility] Last Admin: 05/10/18 22:13 Dose: 20 mg Calcium Acetate (Phoslo -) 667 mg PO TIDCM [facility] Last Admin: 05/11/18 08:09 Dose: 667 mg Cholecalciferol (Vitamin D3 -) 2,000 unit PO DAILY [facility] Last Admin: 05/10/18 09:50 Dose: 2,000 unit Cyanocobalamin (Vitamin B12 Injection -) 1,000 mcg IM DAILY [facility] Last Admin: 05/10/18 09:52 Dose: 1,000 mcg Ferrous Sulfate (Feosol -) 325 mg PO DAILY [facility] Last Admin: 05/10/18 09:51 Dose: 325 mg Insulin Aspart (Novolog Vial Sliding Scale -) 1 vial SQ [facility]; Protocol Last Admin: 05/11/18 08:00 Dose: Not Given Insulin Detemir (Levemir Vial) 10 units SQ AM [facility] Last Admin: 05/11/18 08:09 Dose: 10 units Ufcwa-5-Vpah Ethyl Esters (Lovaza -) 1 gm PO DAILY [facility] Last Admin: 05/10/18 09:50 Dose: 1 gm Pantoprazole Sodium (Protonix -) 40 mg PO DAILY [facility] Last Admin: 05/10/18 09:51 Dose: 40 mg - Objective Vital Signs: Vital Signs Temperature 97.7 F 05/11/18 06:00 Pulse Rate 80 05/11/18 06:00 Respiratory Rate 18 05/11/18 06:00 Blood Pressure 151/79 05/11/18 06:00 O2 Sat by Pulse Oximetry (%) 96 05/10/18 21:00 Cardiovascular: Yes: S1, S2 Respiratory: Yes: Regular, CTA Bilaterally Gastrointestinal: Yes: Normal Bowel Sounds, Soft Edema: Yes Labs: CBC, BMP 05/11/18 05:30 05/11/18 05:30 INR, PTT INR 1.00 (0.83-1.09) 05/02/18 16:50 Assessment/Plan - Problems (1) AUGUSTINE (acute kidney injury) Assessment/Plan: renal sono noted-morphologically normal kidneys renal on board chatterjee cath DC metformin and ARB stopped lactic acidosis resolved cr increased form 5.7 t 6.6 to 8.2 positive JANEY rheum evaluation noted HD defer to renal team Code(s): N17.9 - ACUTE KIDNEY FAILURE, UNSPECIFIED (2) Leukocytosis Assessment/Plan: observe off abx rocephin stop cultures negative Microbiology 05/02/18 17:21 Urine - Urine Clean Catch Urine Culture - Final 05/04/18 06:15 Blood - Peripheral Venous Blood Culture - Preliminary NO GROWTH OBTAINED AFTER 48 HOURS, INCUBATION TO CONTINUE FOR 3 DAYS. 05/04/18 05:50 Blood - Peripheral Venous Blood Culture - Preliminary NO GROWTH OBTAINED AFTER 48 HOURS, INCUBATION TO CONTINUE FOR 3 DAYS. Code(s): D72.829 - ELEVATED WHITE BLOOD CELL COUNT, UNSPECIFIED (3) HLD (hyperlipidemia) Assessment/Plan: statin lipid panel noted Code(s): E78.5 - HYPERLIPIDEMIA, UNSPECIFIED (4) Diabetes Assessment/Plan: bgm sliding scale hold oral hypoglycemic hgba1c 7.1 endo eval noted levemir Code(s): E11.9 - TYPE 2 DIABETES MELLITUS WITHOUT COMPLICATIONS Qualifiers: Diabetes mellitus type: type 2 (5) HTN (hypertension) Assessment/Plan: hold ARB and thiazide diuretic given increase bun/cr start norvasc echo show normal left ventricle function and size is normal no pericardial effusion Code(s): I10 - ESSENTIAL (PRIMARY) HYPERTENSION
[2018-05-11] MEDS: PANTOPRAZOLE 40 MG TABLET (FP) PO SCH (09:22)
[2018-05-11] MEDS: FERROUS SO4 325 MG TABLET (FP) PO SCH (09:22)
[2018-05-11] MEDS: amLODIPine BESYLATE 5 MG TABLET (FP) PO SCH (09:22)
[2018-05-11] MEDS: OMEGA-3 ACID ETHYL ESTERS (FATTY-ACIDS) 1 GM CAPSULE (FP) PO SCH (09:23)
[2018-05-11] MEDS: CHOLECALCIFEROL (VIT D3) 1,000 UNIT (25 MCG) TABLET PO SCH (09:23)
[2018-05-11] MEDS: CYANOCOBALAMIN (VITAMIN B-12) 1000 MCG/1 ML VIAL IM SCH (09:23)
[2018-05-11] MEDS ORDERED: INSULIN (NOVOLOG) ASPART 100 UNITS/ML 10ML VIAL ONE (11:39)
--- NOTE | 2018-05-11 16:41 | PN ---
Progress Note, Physician History of Present Illness: Pt seen and examined at bedside. She denies shortness of breath. She is making urine. She feels that her appetites is improved. - Current Medication List Current Medications: Active Medications Amlodipine Besylate (Norvasc -) 10 mg PO DAILY [facility] Last Admin: 05/11/18 09:22 Dose: 10 mg Atorvastatin Calcium (Lipitor -) 20 mg PO HS [facility] Last Admin: 05/10/18 22:13 Dose: 20 mg Calcium Acetate (Phoslo -) 667 mg PO TIDCM [facility] Last Admin: 05/11/18 11:42 Dose: 667 mg Cholecalciferol (Vitamin D3 -) 2,000 unit PO DAILY [facility] Last Admin: 05/11/18 09:23 Dose: 2,000 unit Cyanocobalamin (Vitamin B12 Injection -) 1,000 mcg IM DAILY [facility] Last Admin: 05/11/18 09:23 Dose: 1,000 mcg Ferrous Sulfate (Feosol -) 325 mg PO DAILY [facility] Last Admin: 05/11/18 09:22 Dose: 325 mg Insulin Aspart (Novolog Vial Sliding Scale -) 1 vial SQ ACHS [facility]; Protocol Last Admin: 05/11/18 11:42 Dose: 6 units Insulin Detemir (Levemir Vial) 10 units SQ AM [facility] Last Admin: 05/11/18 08:09 Dose: 10 units Nmgwq-0-Mdey Ethyl Esters (Lovaza -) 1 gm PO DAILY [facility] Last Admin: 05/11/18 09:23 Dose: 1 gm Pantoprazole Sodium (Protonix -) 40 mg PO DAILY [facility] Last Admin: 05/11/18 09:22 Dose: 40 mg - Objective Vital Signs: Vital Signs Temperature 98 F 05/11/18 14:10 Pulse Rate 84 05/11/18 14:10 Respiratory Rate 18 05/11/18 14:10 Blood Pressure 143/65 05/11/18 14:10 O2 Sat by Pulse Oximetry (%) 96 05/11/18 09:00 Constitutional: Yes: Calm Eyes: Yes: Conjunctiva Clear HENT: Yes: Atraumatic Cardiovascular: Yes: S1, S2 Respiratory: Yes: CTA Bilaterally Gastrointestinal: Yes: Normal Bowel Sounds, Soft Genitourinary: Yes: WNL Musculoskeletal: Yes: WNL Edema: Yes Edema: LLE: Trace, RLE: Trace Neurological: Yes: Oriented Psychiatric: Yes: Oriented Labs: CBC, BMP 05/11/18 05:30 05/11/18 05:30 INR, PTT INR 1.00 (0.83-1.09) 05/02/18 16:50 Problem List - Problems (1) Hyperkalemia Code(s): E87.5 - HYPERKALEMIA (2) AUGUSTINE (acute kidney injury) Code(s): N17.9 - ACUTE KIDNEY FAILURE, UNSPECIFIED (3) Diabetes Code(s): E11.9 - TYPE 2 DIABETES MELLITUS WITHOUT COMPLICATIONS Qualifiers: Diabetes mellitus type: type 2 (4) HLD (hyperlipidemia) Code(s): E78.5 - HYPERLIPIDEMIA, UNSPECIFIED Assessment/Plan Current Medications Generic Name Dose Route Start Last Admin Trade Name Freq PRN Reason Stop Dose Admin Amlodipine Besylate 10 mg 05/07/18 10:00 05/11/18 09:22 Norvasc - PO 10 mg DAILY [facility] Administration Atorvastatin Calcium 20 mg 05/02/18 22:00 05/10/18 22:13 Lipitor - PO 20 mg HS [facility] Administration Calcium Acetate 667 mg 05/09/18 17:30 05/11/18 11:42 Phoslo - PO 667 mg TIDCM [facility] Administration Cholecalciferol 2,000 unit 05/03/18 10:00 05/11/18 09:23 Vitamin D3 - PO 2,000 unit DAILY [facility] Administration Cyanocobalamin 1,000 mcg 05/10/18 10:00 05/11/18 09:23 Vitamin B12 Injection - IM 1,000 mcg DAILY [facility] Administration Ferrous Sulfate 325 mg 05/03/18 10:00 05/11/18 09:22 Feosol - PO 325 mg DAILY [facility] Administration Insulin Aspart 1 vial 05/06/18 07:00 05/11/18 11:42 Novolog Vial Sliding Scale - SQ 6 units ACHS [facility] Administration Protocol Insulin Detemir 10 units 05/06/18 07:00 05/11/18 08:09 Levemir Vial SQ 10 units AM [facility] Administration Sfqmh-5-Jfhw Ethyl Esters 1 gm 05/03/18 10:00 05/11/18 09:23 Lovaza - PO 1 gm DAILY [facility] Administration Pantoprazole Sodium 40 mg 05/03/18 10:00 05/11/18 09:22 Protonix - PO 40 mg DAILY [facility] Administration Laboratory Tests 05/04/18 05/07/18 05/10/18 05:50 06:50 10:23 AZEEM M-Justyn Pending ANDIE Screen Positive H c-ANCA <1:20 Proteinase 3 (PR3) <3.5 p-ANCA <1:20 Atypical p-ANCA <1:20 Myeloperoxidase Ab <9.0 Double Strand DNA Ab <1 Glomerular Base Memb Ab 4 Tot Complement (CH50) > 60 Free [place] LC, Quant Free Lambda LC, Quant Free [place]/Lambda Ratio 05/10/18 10:23 AZEEM M-Justyn ANDIE Screen c-ANCA Proteinase 3 (PR3) p-ANCA Atypical p-ANCA Myeloperoxidase Ab Double Strand DNA Ab Glomerular Base Memb Ab Tot Complement (CH50) Free [place] LC, Quant Pending Free Lambda LC, Quant Pending Free [place]/Lambda Ratio Pending Impression 1. AUGUSTINE 2. hyperkalemia 3. DM 4. HTN 5. anemia 6. HLD 7. metabolic acidosis 8. positive andie Plan - cont to check labs daily - repeat bmp in am - serologies reviewed, cont to follow - no indication for HD - likely atn - asa on hold for possible biopsy of she agrees - discussed plan with family - do not restart metformin, thiazide or arb Dr Segovia
[2018-05-11 19:13] LABS: FREE KAPPA,SERUM 83.5 mg/L (3.3-19.4)
[2018-05-11] MEDS: ATORVASTATIN CA 20 MG TABLET (FP) PO SCH (21:25)
[2018-05-12] MEDS: INSULIN SLIDING SCALE (NOVOLOG) 1 VIAL SQ SCH ×4 (06:37→21:31)
[2018-05-12] MEDS: INSULIN (LEVEMIR) 100 UNITS/ML UNITS SQ SCH (06:37)
[2018-05-12] MEDS: CALCIUM ACETATE 667 MG CAPSULE (FP) PO SCH ×3 (09:00→16:42)
[2018-05-12 09:24] LABS: HEMATOCRIT 26.5 % (32.4-45.2); HEMOGLOBIN 9.1 GM/dL (10.7-15.3); MCH 29.4 pg (25.7-33.7); MCHC 34.4 g/dl (32.0-36.0); MEAN CELL VOLUME 85.3 fl (80-96); MEAN PLT VOLUME 8.2 fl (7.5-11.1); PLATELET COUNT 451 K/MM3 (134-434); RBC 3.11 M/mm3 (3.60-5.2); RDW 15.6 % (11.6-15.6); WHITE BLOOD COUNT 7.7 K/mm3 (4.0-10.0)
[2018-05-12] MEDS: FERROUS SO4 325 MG TABLET (FP) PO SCH (09:52)
[2018-05-12] MEDS: CHOLECALCIFEROL (VIT D3) 1,000 UNIT (25 MCG) TABLET PO SCH (09:52)
[2018-05-12] MEDS: OMEGA-3 ACID ETHYL ESTERS (FATTY-ACIDS) 1 GM CAPSULE (FP) PO SCH (09:52)
[2018-05-12] MEDS: amLODIPine BESYLATE 5 MG TABLET (FP) PO SCH (09:52)
[2018-05-12] MEDS: PANTOPRAZOLE 40 MG TABLET (FP) PO SCH (09:52)
[2018-05-12] MEDS: CYANOCOBALAMIN (VITAMIN B-12) 1000 MCG/1 ML VIAL IM SCH (09:52)
[2018-05-12 10:07] LABS: ALBUMIN 3.4 g/dl (3.4-5.0); ALK PHOS 75 U/L (45-117); ANION GAP 11 MMOL/L (8-16); BILIRUBIN,TOTAL 0.5 mg/dL (0.2-1); BLOOD UREA NITROGEN 88 mg/dL (7-18); CALCIUM 8.2 mg/dL (8.5-10.1); CHLORIDE 102 mmol/L (98-107); CO2 22 mmol/L (21-32); POTASSIUM 4.1 mmol/L (3.5-5.1); SGOT/AST 13 U/L (15-37); SGPT/ALT 35 U/L (13-61); SODIUM 135 mmol/L (136-145); TOT PROT 6.9 g/dl (6.4-8.2)
[2018-05-12 10:42] LABS: CREATININE 8.2 mg/dL (0.55-1.3); GLUCOSE,RANDOM 383 mg/dL (74-106)
--- NOTE | 2018-05-12 12:05 | PN ---
Progress Note, Physician Chief Complaint: AUGUSTINE hyponatremia DM2 HTN History of Present Illness: NAD awake wants to go home awaiting clearance from nephrology BUN/Cr elevated, no HD - Current Medication List Current Medications: Active Medications Amlodipine Besylate (Norvasc -) 10 mg PO DAILY [facility] Last Admin: 05/12/18 09:52 Dose: 10 mg Atorvastatin Calcium (Lipitor -) 20 mg PO HS [facility] Last Admin: 05/11/18 21:25 Dose: 20 mg Calcium Acetate (Phoslo -) 667 mg PO TIDCM [facility] Last Admin: 05/12/18 11:23 Dose: 667 mg Cholecalciferol (Vitamin D3 -) 2,000 unit PO DAILY [facility] Last Admin: 05/12/18 09:52 Dose: 2,000 unit Cyanocobalamin (Vitamin B12 Injection -) 1,000 mcg IM DAILY [facility] Last Admin: 05/12/18 09:52 Dose: 1,000 mcg Ferrous Sulfate (Feosol -) 325 mg PO DAILY [facility] Last Admin: 05/12/18 09:52 Dose: 325 mg Insulin Aspart (Novolog Vial Sliding Scale -) 1 vial SQ ACHS [facility]; Protocol Last Admin: 05/12/18 11:21 Dose: 12 units Insulin Detemir (Levemir Vial) 10 units SQ AM [facility] Last Admin: 05/12/18 06:37 Dose: 10 units Ruipf-9-Ezma Ethyl Esters (Lovaza -) 1 gm PO DAILY [facility] Last Admin: 05/12/18 09:52 Dose: 1 gm Pantoprazole Sodium (Protonix -) 40 mg PO DAILY [facility] Last Admin: 05/12/18 09:52 Dose: 40 mg - Objective Vital Signs: Vital Signs Temperature 97.8 F 05/12/18 05:53 Pulse Rate 87 05/12/18 05:53 Respiratory Rate 20 05/12/18 05:53 Blood Pressure 156/75 05/12/18 05:53 O2 Sat by Pulse Oximetry (%) 93 L 05/11/18 21:00 Constitutional: Yes: Well Nourished, No Distress, Calm Cardiovascular: Yes: Regular Rate and Rhythm Respiratory: Yes: Regular Gastrointestinal: Yes: Normal Bowel Sounds, Soft Musculoskeletal: Yes: WNL Extremities: Yes: WNL Edema: No Peripheral Pulses WNL: Yes Neurological: Yes: Alert, Oriented Psychiatric: Yes: Alert, Oriented Labs: CBC, BMP 05/12/18 09:10 05/12/18 09:10 INR, PTT INR 1.00 (0.83-1.09) 05/02/18 16:50 Problem List - Problems (1) AUGUSTINE (acute kidney injury) Assessment/Plan: -nephrology on board -dialysis as per renal -monitor trend Code(s): N17.9 - ACUTE KIDNEY FAILURE, UNSPECIFIED (2) Anemia Assessment/Plan: -Iron borderline -started on Feosol -stool ob negative -B 12 low -B 12 inj -epogen as per nephrology discretion -monitor trend Code(s): D64.9 - ANEMIA, UNSPECIFIED (3) Diabetes Assessment/Plan: -BGM AC HS -diabetic renal diet -A1c 7.7 -Novolog sliding scale -Levemir 10 U in AM -Endocrinology on board Code(s): E11.9 - TYPE 2 DIABETES MELLITUS WITHOUT COMPLICATIONS Qualifiers: Diabetes mellitus type: type 2 Diabetes mellitus group home insulin use: without intermediate card tender use Diabetes mellitus complication status: with hyperglycemia Qualified Code(s): E11.65 - Type 2 diabetes mellitus with hyperglycemia (4) HTN (hypertension) Assessment/Plan: -continue amlodipine Code(s): I10 - ESSENTIAL (PRIMARY) HYPERTENSION Assessment/Plan see problem list Self ambulatory
--- NOTE | 2018-05-12 12:34 | PN ---
Progress Note, Physician History of Present Illness: Pt seen and examined at bedside. She is awake and alert. She feels well. She has good appetite. She denies dysuria or heamturia. - Current Medication List Current Medications: Active Medications Amlodipine Besylate (Norvasc -) 10 mg PO DAILY [facility] Last Admin: 05/12/18 09:52 Dose: 10 mg Atorvastatin Calcium (Lipitor -) 20 mg PO HS [facility] Last Admin: 05/11/18 21:25 Dose: 20 mg Calcium Acetate (Phoslo -) 667 mg PO TIDCM [facility] Last Admin: 05/12/18 11:23 Dose: 667 mg Cholecalciferol (Vitamin D3 -) 2,000 unit PO DAILY [facility] Last Admin: 05/12/18 09:52 Dose: 2,000 unit Cyanocobalamin (Vitamin B12 Injection -) 1,000 mcg IM DAILY [facility] Last Admin: 05/12/18 09:52 Dose: 1,000 mcg Ferrous Sulfate (Feosol -) 325 mg PO DAILY [facility] Last Admin: 05/12/18 09:52 Dose: 325 mg Insulin Aspart (Novolog Vial Sliding Scale -) 1 vial SQ ACHS [facility]; Protocol Last Admin: 05/12/18 11:21 Dose: 12 units Insulin Detemir (Levemir Vial) 10 units SQ AM [facility] Last Admin: 05/12/18 06:37 Dose: 10 units Nesij-5-Lvod Ethyl Esters (Lovaza -) 1 gm PO DAILY [facility] Last Admin: 05/12/18 09:52 Dose: 1 gm Pantoprazole Sodium (Protonix -) 40 mg PO DAILY [facility] Last Admin: 05/12/18 09:52 Dose: 40 mg - Objective Vital Signs: Vital Signs Temperature 98.0 F 05/12/18 10:00 Pulse Rate 84 05/12/18 10:00 Respiratory Rate 20 05/12/18 10:00 Blood Pressure 147/68 05/12/18 10:00 O2 Sat by Pulse Oximetry (%) 98 05/12/18 09:00 Constitutional: Yes: Calm Eyes: Yes: Conjunctiva Clear HENT: Yes: Atraumatic Neck: Yes: Supple Cardiovascular: Yes: S1, S2 Respiratory: Yes: CTA Bilaterally Gastrointestinal: Yes: Normal Bowel Sounds, Soft Genitourinary: Yes: WNL Musculoskeletal: Yes: WNL Edema: Yes Edema: LLE: Trace, RLE: Trace Neurological: Yes: Oriented Psychiatric: Yes: Oriented Labs: CBC, BMP 05/12/18 09:10 05/12/18 09:10 INR, PTT INR 1.00 (0.83-1.09) 05/02/18 16:50 Problem List - Problems (1) Hyperkalemia Code(s): E87.5 - HYPERKALEMIA (2) AUGUSTINE (acute kidney injury) Code(s): N17.9 - ACUTE KIDNEY FAILURE, UNSPECIFIED (3) Diabetes Code(s): E11.9 - TYPE 2 DIABETES MELLITUS WITHOUT COMPLICATIONS Qualifiers: Diabetes mellitus type: type 2 (4) HLD (hyperlipidemia) Code(s): E78.5 - HYPERLIPIDEMIA, UNSPECIFIED Assessment/Plan Current Medications Generic Name Dose Route Start Last Admin Trade Name Freq PRN Reason Stop Dose Admin Amlodipine Besylate 10 mg 05/07/18 10:00 05/12/18 09:52 Norvasc - PO 10 mg DAILY [facility] Administration Atorvastatin Calcium 20 mg 05/02/18 22:00 05/11/18 21:25 Lipitor - PO 20 mg HS [facility] Administration Calcium Acetate 667 mg 05/09/18 17:30 05/12/18 11:23 Phoslo - PO 667 mg TIDCM [facility] Administration Cholecalciferol 2,000 unit 05/03/18 10:00 05/12/18 09:52 Vitamin D3 - PO 2,000 unit DAILY [facility] Administration Cyanocobalamin 1,000 mcg 05/10/18 10:00 05/12/18 09:52 Vitamin B12 Injection - IM 1,000 mcg DAILY [facility] Administration Ferrous Sulfate 325 mg 05/03/18 10:00 05/12/18 09:52 Feosol - PO 325 mg DAILY [facility] Administration Insulin Aspart 1 vial 05/06/18 07:00 05/12/18 11:21 Novolog Vial Sliding Scale - SQ 12 units ACHS [facility] Administration Protocol Insulin Detemir 10 units 05/06/18 07:00 05/12/18 06:37 Levemir Vial SQ 10 units AM [facility] Administration Watvu-4-Usmx Ethyl Esters 1 gm 05/03/18 10:00 05/12/18 09:52 Lovaza - PO 1 gm DAILY [facility] Administration Pantoprazole Sodium 40 mg 05/03/18 10:00 05/12/18 09:52 Protonix - PO 40 mg DAILY [facility] Administration Impression 1. AUGUSTINE 2. hyperkalemia 3. DM 4. HTN 5. anemia 6. HLD 7. metabolic acidosis 8. positive andie Plan - strategy analyst has stayed at 8.2, hopefully it will start improving - likely ATN - repeat labs in am - asa on hold - follow serologies - asa on hold for possible biopsy of she agrees - discussed plan with family - do not restart metformin, thiazide or arb Dr Segovia
[2018-05-12 15:22] LABS: RATIO URIN PROTEIN/URIN CREAT 1.3 MG/DL
[2018-05-12 15:33] LABS: EPI CELLS 0.3 /HPF (FEW); HYALINE CASTS 0 /hpf (NEGATIVE); URINE APPEARANCE CLEAR; URINE BACTERIA 510.39 /hpf (NEGATIVE); URINE BILIRUBIN NEGATIVE (<2.0 mg/dL); URINE COLOR YELLOW; URINE GLUCOSE (UA) 2+ (NEGATIVE); URINE KETONE NEGATIVE (NEGATIVE); URINE LEUK ESTERASE NEAGTIVE (NEGATIVE); URINE NITRITE NEGATIVE (NEGATIVE); URINE PROTEIN TRACE (NEGATIVE); URINE RBC 1 /hpf (0-3); URINE UROBILINOGEN 0.2 mg/dL (0.2-1.0); URINE WBC 1 /hpf (3-5)
[2018-05-12] MEDS: ATORVASTATIN CA 20 MG TABLET (FP) PO SCH (21:31)
[2018-05-13] MEDS: INSULIN (LEVEMIR) 100 UNITS/ML UNITS SQ SCH (06:41)
[2018-05-13] MEDS: INSULIN SLIDING SCALE (NOVOLOG) 1 VIAL SQ SCH ×4 (06:41→21:14)
[2018-05-13 07:15] LABS: HEMOGLOBIN 9.1 GM/dL (10.7-15.3); MCH 29.9 pg (25.7-33.7); MCHC 35.1 g/dl (32.0-36.0); MEAN PLT VOLUME 8.9 fl (7.5-11.1); PLATELET COUNT 477 K/MM3 (134-434); RBC 3.05 M/mm3 (3.60-5.2); RDW 15.5 % (11.6-15.6); WHITE BLOOD COUNT 9.7 K/mm3 (4.0-10.0)
[2018-05-13] MEDS: CALCIUM ACETATE 667 MG CAPSULE (FP) PO SCH ×3 (08:35→16:50)
[2018-05-13] MEDS: amLODIPine BESYLATE 5 MG TABLET (FP) PO SCH (10:23)
[2018-05-13] MEDS: OMEGA-3 ACID ETHYL ESTERS (FATTY-ACIDS) 1 GM CAPSULE (FP) PO SCH (10:23)
[2018-05-13] MEDS: FERROUS SO4 325 MG TABLET (FP) PO SCH (10:23)
[2018-05-13] MEDS: CHOLECALCIFEROL (VIT D3) 1,000 UNIT (25 MCG) TABLET PO SCH (10:23)
[2018-05-13] MEDS: PANTOPRAZOLE 40 MG TABLET (FP) PO SCH (10:23)
[2018-05-13] MEDS: CYANOCOBALAMIN (VITAMIN B-12) 1000 MCG/1 ML VIAL IM SCH (10:24)
[2018-05-13 10:40] LABS: ALBUMIN 3.6 g/dl (3.4-5.0); ALK PHOS 77 U/L (45-117); ANION GAP 14 MMOL/L (8-16); BILIRUBIN,TOTAL 0.5 mg/dL (0.2-1); BLOOD UREA NITROGEN 95 mg/dL (7-18); CALCIUM 8.6 mg/dL (8.5-10.1); CHLORIDE 104 mmol/L (98-107); CO2 18 mmol/L (21-32); GLUCOSE,RANDOM 218 mg/dL (74-106); POTASSIUM 4.1 mmol/L (3.5-5.1); SGOT/AST 17 U/L (15-37); SGPT/ALT 36 U/L (13-61); SODIUM 136 mmol/L (136-145); TOT PROT 7.3 g/dl (6.4-8.2)
[2018-05-13 10:52] LABS: CREATININE 7.7 mg/dL (0.55-1.3)
--- NOTE | 2018-05-13 14:31 | PN ---
Progress Note, Physician History of Present Illness: Pt seen and examined at bedside. She is awake and alert. She denies shortness of breath. - Current Medication List Current Medications: Active Medications Amlodipine Besylate (Norvasc -) 10 mg PO DAILY [facility] Last Admin: 05/13/18 10:23 Dose: 10 mg Atorvastatin Calcium (Lipitor -) 20 mg PO HS [facility] Last Admin: 05/12/18 21:31 Dose: 20 mg Calcium Acetate (Phoslo -) 667 mg PO TIDCM [facility] Last Admin: 05/13/18 11:57 Dose: 667 mg Cholecalciferol (Vitamin D3 -) 2,000 unit PO DAILY [facility] Last Admin: 05/13/18 10:23 Dose: 2,000 unit Cyanocobalamin (Vitamin B12 Injection -) 1,000 mcg IM DAILY [facility] Last Admin: 05/13/18 10:24 Dose: 1,000 mcg Ferrous Sulfate (Feosol -) 325 mg PO DAILY [facility] Last Admin: 05/13/18 10:23 Dose: 325 mg Insulin Aspart (Novolog Vial Sliding Scale -) [facility]; Protocol Last Admin: 05/13/18 11:56 Dose: 3 units Insulin Detemir (Levemir Vial) 12 units SQ AM [facility] Last Admin: 05/13/18 06:41 Dose: 12 units Rfzbi-8-Uswc Ethyl Esters (Lovaza -) 1 gm PO DAILY [facility] Last Admin: 05/13/18 10:23 Dose: 1 gm Pantoprazole Sodium (Protonix -) 40 mg PO DAILY [facility] Last Admin: 05/13/18 10:23 Dose: 40 mg - Objective Vital Signs: Vital Signs Temperature 98.5 F 05/13/18 14:00 Pulse Rate 99 H 05/13/18 14:00 Respiratory Rate 20 05/13/18 14:00 Blood Pressure 148/76 05/13/18 14:00 O2 Sat by Pulse Oximetry (%) 99 05/13/18 09:00 Constitutional: Yes: Calm Eyes: Yes: Conjunctiva Clear HENT: Yes: Atraumatic Neck: Yes: Supple Cardiovascular: Yes: S1, S2 Respiratory: Yes: CTA Bilaterally Gastrointestinal: Yes: Soft Genitourinary: Yes: WNL Musculoskeletal: Yes: WNL Edema: No Integumentary: Yes: WNL Neurological: Yes: Oriented Psychiatric: Yes: Oriented Labs: CBC, BMP 05/13/18 05:30 05/13/18 05:30 INR, PTT INR 1.00 (0.83-1.09) 05/02/18 16:50 Problem List - Problems (1) Hyperkalemia Code(s): E87.5 - HYPERKALEMIA (2) AUGUSTINE (acute kidney injury) Code(s): N17.9 - ACUTE KIDNEY FAILURE, UNSPECIFIED (3) Diabetes Code(s): E11.9 - TYPE 2 DIABETES MELLITUS WITHOUT COMPLICATIONS Qualifiers: Diabetes mellitus type: type 2 (4) HLD (hyperlipidemia) Code(s): E78.5 - HYPERLIPIDEMIA, UNSPECIFIED Assessment/Plan Current Medications Generic Name Dose Route Start Last Admin Trade Name Freq PRN Reason Stop Dose Admin Amlodipine Besylate 10 mg 05/07/18 10:00 05/13/18 10:23 Norvasc - PO 10 mg DAILY [facility] Administration Atorvastatin Calcium 20 mg 05/02/18 22:00 05/12/18 21:31 Lipitor - PO 20 mg HS [facility] Administration Calcium Acetate 667 mg 05/09/18 17:30 05/13/18 11:57 Phoslo - PO 667 mg TIDCM [facility] Administration Cholecalciferol 2,000 unit 05/03/18 10:00 05/13/18 10:23 Vitamin D3 - PO 2,000 unit DAILY [facility] Administration Cyanocobalamin 1,000 mcg 05/10/18 10:00 05/13/18 10:24 Vitamin B12 Injection - IM 1,000 mcg DAILY [facility] Administration Ferrous Sulfate 325 mg 05/03/18 10:00 05/13/18 10:23 Feosol - PO 325 mg DAILY [facility] Administration Insulin Aspart 1 vial 05/06/18 07:00 05/13/18 11:56 Novolog Vial Sliding Scale - SQ 3 units ACHS [facility] Administration Protocol Insulin Detemir 12 units 05/12/18 13:25 05/13/18 06:41 Levemir Vial SQ 12 units AM [facility] Administration Wybfp-3-Gfgx Ethyl Esters 1 gm 05/03/18 10:00 05/13/18 10:23 Lovaza - PO 1 gm DAILY [facility] Administration Pantoprazole Sodium 40 mg 05/03/18 10:00 05/13/18 10:23 Protonix - PO 40 mg DAILY [facility] Administration Laboratory Tests 05/10/18 10:23 Free [place] LC, Quant 83.5 H Free Lambda LC, Quant 28.8 H Free [place]/Lambda Ratio 2.90 H Impression 1. AUGUSTINE 2. hyperkalemia 3. DM 4. HTN 5. anemia 6. HLD 7. metabolic acidosis 8. positive andie Plan - renal function is starting to improve - asa on hold - repeat labs in am - serologies negative so far, cont to follow - both kappa and lambda elevated - heme eval - can be discharged tomorrow if renal function continues to improve and can be followed as outpt - discussed plan with family - do not restart metformin, thiazide or arb Dr Segovia
--- NOTE | 2018-05-13 21:11 | CONSULT ---
Consult - text type - Consultation Consultation Note: Pt is an 78 year old female with pmhx of DM, HTN, anemia and HLD who was sent in for abnormal labs. She was found to be in acute renal failure. She complains of lethargy and generalized body aches for the last 4 days. She also complains of poor po intake. She denies dysuria or hematuria. She denies nsaid use. She denies chest pain of shortness of breath. She denies fevers or chills. She was also found to be hyperkalemic. - Past Medical History Cardio/Vascular: Yes: HTN, Hyperlipdemia Heme/Onc: Yes: Anemia Endocrine: Yes: Diabetes Mellitus - Smoking History Smoking history: Never smoked - Allergies Allergies/Adverse Reactions: Allergies Allergy/AdvReac Type Severity Reaction Status Date / Time No Known Allergies Allergy Verified 05/02/18 16:08 - Home Medications Home Medications: Ambulatory Orders Alendronate Sodium [Binosto] 70 mg PO WEEKLY 05/02/18 Aspirin [Adult Aspirin Regimen] 81 mg PO DAILY 05/02/18 Atorvastatin Calcium [Lipitor] 20 mg PO HS 05/02/18 Cholecalciferol (Vitamin D3) [D-2000] 2,000 unit PO DAILY 05/02/18 Dapagliflozin Propanediol [Farxiga] 10 mg PO DAILY 05/02/18 Ferrous Sulfate [Feosol] 325 mg PO DAILY 05/02/18 Fluticasone Prop 0.05% Nasal [Flonase -] 1 - 2 spray NS BID 05/02/18 Glyburide/Metformin HCl [Glyburide-Metformin 5-500 mg] 2 tab PO BID 05/02/18 Uriah-3 Fatty Acids/Fish Oil [Fish Oil 1,000 mg Capsule] 1 each PO DAILY Pantoprazole Sodium [Protonix] 40 mg PO DAILY 05/02/18 Sitagliptin Phosphate [Januvia] 100 mg PO DAILY 05/02/18 Valsartan/Hydrochlorothiazide [Valsartan-Hctz 80-12.5 mg Tab] 1 each PO DAILY - Family Disease History Family History: Denies Vital Signs: Last Vital Signs Temp Pulse Resp BP Pulse Ox 98.5 F 87 20 145/74 99 05/14/18 01:27 05/14/18 01:27 05/14/18 01:27 05/14/18 01:27 05/13/18 09:00 Cor: RSR, No murmurs, No gallops Lungs: Clear to P&A Abd: Soft, Normal bowel sounds, No organomegaly Ext:No significant edema Labs/meds reviewed Impression 1. AUGUSTINE 2. hyperkalemia 3. DM 4. HTN 5. anemia 6. HLD 7. metabolic acidosis 78 y/o patient with DM/HTN/HLD/AUGUSTINE k/l ratio of 2.9 It is difficult to interpret kappa/lambda ratios between 1.65 and 3.0 in the context of renal insufficiency given the quantity ofk/l lightchains unlikely due to myeloma negative sife will check upep/uife
[2018-05-13] MEDS: ATORVASTATIN CA 20 MG TABLET (FP) PO SCH (21:14)
[2018-05-14] MEDS: INSULIN SLIDING SCALE (NOVOLOG) 1 VIAL SQ SCH (06:13)
[2018-05-14] MEDS: INSULIN (LEVEMIR) 100 UNITS/ML UNITS SQ SCH (06:14)
[2018-05-14 06:38] LABS: HEMATOCRIT 25.4 % (32.4-45.2); HEMOGLOBIN 8.9 GM/dL (10.7-15.3); MCH 29.8 pg (25.7-33.7); MCHC 34.9 g/dl (32.0-36.0); MEAN CELL VOLUME 85.2 fl (80-96); MEAN PLT VOLUME 8.6 fl (7.5-11.1); PLATELET COUNT 429 K/MM3 (134-434); RBC 2.98 M/mm3 (3.60-5.2); RDW 15.8 % (11.6-15.6); WHITE BLOOD COUNT 8.5 K/mm3 (4.0-10.0)
[2018-05-14 07:37] LABS: ALBUMIN 3.4 g/dl (3.4-5.0); ALK PHOS 67 U/L (45-117); ANION GAP 12 MMOL/L (8-16); BILIRUBIN,TOTAL 0.5 mg/dL (0.2-1); CALCIUM 8.4 mg/dL (8.5-10.1); CHLORIDE 103 mmol/L (98-107); CO2 21 mmol/L (21-32); GLUCOSE,RANDOM 203 mg/dL (74-106); PHOSPHOROUS 5.2 mg/dL (2.5-4.9); POTASSIUM 3.9 mmol/L (3.5-5.1); SGOT/AST 12 U/L (15-37); SGPT/ALT 31 U/L (13-61); SODIUM 137 mmol/L (136-145); TOT PROT 6.9 g/dl (6.4-8.2)
[2018-05-14] MEDS ORDERED: ACETAMINOPHEN 325 MG TABLET (FP) ONE (07:44)
[2018-05-14 08:36] LABS: BLOOD UREA NITROGEN 105 mg/dL (7-18)
[2018-05-14 08:37] LABS: CREATININE 7.4 mg/dL (0.55-1.3)
--- NOTE | 2018-05-14 10:09 | PN ---
Progress Note, Physician Chief Complaint: Progress note for 05/13/18 AUGUSTINE hyponatremia DM2 HTN History of Present Illness: NAD awake wants to go home awaiting clearance from nephrology BUN/Cr elevated, no HD - Current Medication List Current Medications: Active Medications Amlodipine Besylate (Norvasc -) 10 mg PO DAILY [facility] Last Admin: 05/13/18 10:23 Dose: 10 mg Atorvastatin Calcium (Lipitor -) 20 mg PO HS [facility] Last Admin: 05/13/18 21:14 Dose: 20 mg Calcium Acetate (Phoslo -) 667 mg PO TIDCM [facility] Last Admin: 05/13/18 16:50 Dose: 667 mg Cholecalciferol (Vitamin D3 -) 2,000 unit PO DAILY [facility] Last Admin: 05/13/18 10:23 Dose: 2,000 unit Cyanocobalamin (Vitamin B12 Injection -) 1,000 mcg IM DAILY [facility] Last Admin: 05/13/18 10:24 Dose: 1,000 mcg Ferrous Sulfate (Feosol -) 325 mg PO DAILY [facility] Last Admin: 05/13/18 10:23 Dose: 325 mg Insulin Aspart (Novolog Vial Sliding Scale -) 1 vial SQ ACHS [facility]; Protocol Last Admin: 05/14/18 06:13 Dose: 3 units Insulin Detemir (Levemir Vial) 12 units SQ AM [facility] Last Admin: 05/14/18 06:14 Dose: 12 units Oexoc-0-Dvkr Ethyl Esters (Lovaza -) 1 gm PO DAILY [facility] Last Admin: 05/13/18 10:23 Dose: 1 gm Pantoprazole Sodium (Protonix -) 40 mg PO DAILY [facility] Last Admin: 05/13/18 10:23 Dose: 40 mg - Objective Vital Signs: Vital Signs Temperature 98.1 F 05/14/18 06:18 Pulse Rate 75 05/14/18 06:18 Respiratory Rate 20 05/14/18 06:18 Blood Pressure 136/73 05/14/18 06:18 O2 Sat by Pulse Oximetry (%) 99 05/13/18 21:00 Constitutional: Yes: Well Nourished, No Distress, Calm Cardiovascular: Yes: Regular Rate and Rhythm Respiratory: Yes: Regular Gastrointestinal: Yes: Normal Bowel Sounds, Soft Genitourinary: Yes: WNL Musculoskeletal: Yes: WNL Extremities: Yes: WNL Edema: No Peripheral Pulses WNL: Yes Neurological: Yes: Alert, Oriented Psychiatric: Yes: Alert, Oriented Labs: CBC, BMP 05/14/18 05:30 05/14/18 05:30 INR, PTT INR 1.00 (0.83-1.09) 05/02/18 16:50 Problem List - Problems (1) AUGUSTINE (acute kidney injury) Assessment/Plan: -nephrology on board -dialysis as per renal -monitor trend Code(s): N17.9 - ACUTE KIDNEY FAILURE, UNSPECIFIED (2) Anemia Assessment/Plan: -Iron borderline -started on Feosol -stool ob negative -B 12 low -B 12 inj -check erythropoetin -epogen as per nephrology discretion -monitor trend Code(s): D64.9 - ANEMIA, UNSPECIFIED (3) Diabetes Assessment/Plan: -BGM AC HS -diabetic renal diet -A1c 7.7 -Novolog sliding scale -Levemir 10 U in AM -Endocrinology on board Code(s): E11.9 - TYPE 2 DIABETES MELLITUS WITHOUT COMPLICATIONS Qualifiers: Diabetes mellitus type: type 2 (4) HTN (hypertension) Assessment/Plan: -continue amlodipine Code(s): I10 - ESSENTIAL (PRIMARY) HYPERTENSION Assessment/Plan see problem list Self ambulatory
--- NOTE | 2018-05-14 10:12 | PN ---
Progress Note, Physician Chief Complaint: AUGUSTINE hyponatremia DM2 HTN History of Present Illness: NAD awake wants to go home awaiting clearance from nephrology BUN/Cr elevated, no HD - Current Medication List Current Medications: Active Medications Amlodipine Besylate (Norvasc -) 10 mg PO DAILY [facility] Last Admin: 05/13/18 10:23 Dose: 10 mg Atorvastatin Calcium (Lipitor -) 20 mg PO HS [facility] Last Admin: 05/13/18 21:14 Dose: 20 mg Calcium Acetate (Phoslo -) 667 mg PO TIDCM [facility] Last Admin: 05/13/18 16:50 Dose: 667 mg Cholecalciferol (Vitamin D3 -) 2,000 unit PO DAILY [facility] Last Admin: 05/13/18 10:23 Dose: 2,000 unit Cyanocobalamin (Vitamin B12 Injection -) 1,000 mcg IM DAILY [facility] Last Admin: 05/13/18 10:24 Dose: 1,000 mcg Ferrous Sulfate (Feosol -) 325 mg PO DAILY [facility] Last Admin: 05/13/18 10:23 Dose: 325 mg Insulin Aspart (Novolog Vial Sliding Scale -) 1 vial SQ ACHS [facility]; Protocol Last Admin: 05/14/18 06:13 Dose: 3 units Insulin Detemir (Levemir Vial) 12 units SQ AM [facility] Last Admin: 05/14/18 06:14 Dose: 12 units Xbkto-7-Ihyz Ethyl Esters (Lovaza -) 1 gm PO DAILY [facility] Last Admin: 05/13/18 10:23 Dose: 1 gm Pantoprazole Sodium (Protonix -) 40 mg PO DAILY [facility] Last Admin: 05/13/18 10:23 Dose: 40 mg - Objective Vital Signs: Vital Signs Temperature 98.1 F 05/14/18 06:18 Pulse Rate 75 05/14/18 06:18 Respiratory Rate 20 05/14/18 06:18 Blood Pressure 136/73 05/14/18 06:18 O2 Sat by Pulse Oximetry (%) 99 05/13/18 21:00 Constitutional: Yes: Well Nourished, No Distress, Calm Cardiovascular: Yes: Regular Rate and Rhythm Respiratory: Yes: Regular Gastrointestinal: Yes: Normal Bowel Sounds, Soft Genitourinary: Yes: WNL Musculoskeletal: Yes: WNL Extremities: Yes: WNL Edema: No Peripheral Pulses WNL: Yes Neurological: Yes: Alert, Oriented Psychiatric: Yes: Alert, Oriented Labs: CBC, BMP 05/14/18 05:30 05/14/18 05:30 INR, PTT INR 1.00 (0.83-1.09) 05/02/18 16:50 Problem List - Problems (1) AUGUSTINE (acute kidney injury) Assessment/Plan: -nephrology on board -dialysis as per renal -monitor trend Code(s): N17.9 - ACUTE KIDNEY FAILURE, UNSPECIFIED (2) Anemia Assessment/Plan: -Iron borderline -started on Feosol -stool ob negative -B 12 low -B 12 inj -epogen as per nephrology discretion -monitor trend Code(s): D64.9 - ANEMIA, UNSPECIFIED (3) Diabetes Assessment/Plan: -BGM AC HS -diabetic renal diet -A1c 7.7 -Novolog sliding scale -Levemir 10 U in AM -Endocrinology on board Code(s): E11.9 - TYPE 2 DIABETES MELLITUS WITHOUT COMPLICATIONS Qualifiers: Diabetes mellitus type: type 2 (4) HTN (hypertension) Assessment/Plan: -continue amlodipine Code(s): I10 - ESSENTIAL (PRIMARY) HYPERTENSION Assessment/Plan see problem list Self ambulatory D/C home
[2018-05-14] MEDS: CHOLECALCIFEROL (VIT D3) 1,000 UNIT (25 MCG) TABLET PO SCH (10:24)
[2018-05-14] MEDS: PANTOPRAZOLE 40 MG TABLET (FP) PO SCH (10:24)
[2018-05-14] MEDS: amLODIPine BESYLATE 5 MG TABLET (FP) PO SCH (10:24)
[2018-05-14] MEDS: CALCIUM ACETATE 667 MG CAPSULE (FP) PO SCH (10:24)
[2018-05-14] MEDS: FERROUS SO4 325 MG TABLET (FP) PO SCH (10:24)
[2018-05-14] MEDS: OMEGA-3 ACID ETHYL ESTERS (FATTY-ACIDS) 1 GM CAPSULE (FP) PO SCH (10:24)
[2018-05-14] MEDS: CYANOCOBALAMIN (VITAMIN B-12) 1000 MCG/1 ML VIAL IM SCH (10:25)
[2018-05-14 11:28] VITALS: BP 143/71; PULSE 86; TEMP 97.7
--- NOTE | 2018-05-15 23:17 | HP ---
Admitting History and Physical - Admission Chief Complaint: hyperglycemia History of Present Illness: this is an 78 year old female with pmhx of DM, HTN, anemia and HLD was recently d/c for AUGUSTINE 2/2 ATN presented back to the hospital because of elevated glucose level, according to the family and the patient she was not given her oral medication due to AUGUSTINE, she was supposed to be on insulin however the patient was not given any prescription and that she was not taught how to use the insulin. History Source: Patient, Family Member Limitations to Obtaining History: No Limitations - Past Medical History Cardiovascular: Yes: HTN, Hyperlipdemia Heme/Onc: Yes: Anemia Endocrine: Yes: Diabetes Mellitus - Advance Directives Advance Directives: Yes: Living Will - Smoking History Smoking history: Never smoked Have you smoked in the past 12 months: No - Alcohol/Substance Use Hx Alcohol Use: No Home Medications - Allergies Allergies/Adverse Reactions: Allergies Allergy/AdvReac Type Severity Reaction Status Date / Time No Known Allergies Allergy Verified 05/15/18 20:31 - Home Medications Home Medications: Ambulatory Orders Atorvastatin Calcium [Lipitor] 20 mg PO HS 05/02/18 Cholecalciferol (Vitamin D3) [D3-2000] 2,000 unit PO DAILY 05/02/18 Ferrous Sulfate [Feosol] 325 mg PO DAILY 05/02/18 Fluticasone Prop 0.05% Nasal [Flonase -] 1 - 2 spray NS BID 05/02/18 [place]-3 Fatty Acids/Fish Oil [Fish Oil 1,000 mg Capsule] 1 each PO DAILY Pantoprazole Sodium [Protonix] 40 mg PO DAILY 05/02/18 Amlodipine Besylate [Norvasc -] 10 mg PO DAILY #30 tablet 05/14/18 Calcium Acetate [Phoslo -] 667 mg PO TIDCM #90 capsule 05/14/18 Cyanocobalamin/Cobamamide [B-12 5,000 Mcg Sublingual Tab] 1 each SL DAILY #30 tab.subl 05/14/18 Insulin (Novolog) [Novolog Vial] 0 units SQ AC #1 ea 05/14/18 Insulin Detemir [Levemir Flextouch] 12 unit SQ AM #1 insuln.pen 05/14/18 Lancets [Lancets Ultra Thin] 1 each ACHS #100 each 05/14/18 Miscellaneous Medical Supply [Glucometer Device] 1 each SQ ASDIR #1 kit Miscellaneous Medical Supply [Glucometer Test Strips #100] 1 each SQ ASDIR #1 box 05/14/18 Pen Needle, Diabetic [Pen Needle] 1 each ACHS #100 dis.needle 05/14/18 Sitagliptin Phosphate [Januvia] 25 mg PO DAILY #30 tablet 05/14/18 Review of Systems - Review of Systems Constitutional: reports: No Symptoms Eyes: reports: No Symptoms HENT: reports: No Symptoms Neck: reports: No Symptoms Cardiovascular: reports: No Symptoms Respiratory: reports: No Symptoms Gastrointestinal: reports: No Symptoms Genitourinary: reports: No Symptoms Breasts: reports: No Symptoms Reported Musculoskeletal: reports: No Symptoms Integumentary: reports: No Symptoms Neurological: reports: No Symptoms Endocrine: reports: No Symptoms Physical Examination Vital Signs: Vital Signs Temperature 97.7 F 05/14/18 10:00 Pulse Rate 86 05/14/18 10:00 Respiratory Rate 20 05/14/18 10:00 Blood Pressure 143/71 05/14/18 10:00 O2 Sat by Pulse Oximetry (%) 99 05/14/18 09:00 Constitutional: Yes: Well Nourished, No Distress, Calm Eyes: Yes: WNL, Conjunctiva Clear, EOM Intact HENT: Yes: WNL, Atraumatic, Normocephalic Neck: Yes: WNL, Supple, Trachea Midline Cardiovascular: Yes: WNL, Regular Rate and Rhythm, S1, S2 Respiratory: Yes: WNL, Regular, CTA Bilaterally Gastrointestinal: Yes: WNL, Normal Bowel Sounds, Soft Musculoskeletal: Yes: WNL Extremities: Yes: WNL Edema: No Integumentary: Yes: WNL Neurological: Yes: WNL, Alert, Oriented ...Motor Strength: WNL Psychiatric: Yes: WNL, Alert, Oriented Labs: CBC, BMP 05/14/18 05:30 05/14/18 05:30 Imaging - Results Chest X-ray: Image Reviewed EKG: Image Reviewed Problem List - Problems (1) Diabetes Assessment/Plan: insulin sliding scale give 3 units with meals then adjust with the correct sliding scale start levamir 10mg HS and adjust based on the morning dose Code(s): E11.9 - TYPE 2 DIABETES MELLITUS WITHOUT COMPLICATIONS Qualifiers: Diabetes mellitus type: type 2 Diabetes mellitus residential insulin use: without manager intermediate use Diabetes mellitus complication status: with hyperglycemia Qualified Code(s): E11.65 - Type 2 diabetes mellitus with hyperglycemia (2) Hyperglycemia Assessment/Plan: insulin sliding scale Code(s): R73.9 - HYPERGLYCEMIA, UNSPECIFIED (3) HLD (hyperlipidemia) Assessment/Plan: c/w statin Code(s): E78.5 - HYPERLIPIDEMIA, UNSPECIFIED (4) HTN (hypertension) Assessment/Plan: c/w home medication Code(s): I10 - ESSENTIAL (PRIMARY) HYPERTENSION (5) AUGUSTINE (acute kidney injury) Assessment/Plan: resolving f/u with renal function Code(s): N17.9 - ACUTE KIDNEY FAILURE, UNSPECIFIED
== END 2018-05-14 13:30 | disposition home or self-care (01) | DRG 683 ==
LOC: JER 15:59 → JERBED 19:39 → J4W 05-03 15:13
PROVIDERS: ADMIT Internal Medicine; ATTEND Family Medicine
PROC: 06HN33Z Insertion of Infusion Device into Left Femoral Vein, Percutaneous Approach (ICD-10-PCS; principal; 2018-05-05)
PROC: B51CZZA Fluoroscopy of Left Lower Extremity Veins, Guidance (ICD-10-PCS; 2018-05-05)
DX: N17.9 Acute kidney failure, unspecified (principal); E87.2 Acidosis; E87.1 Hypo-osmolality and hyponatremia; E78.5 Hyperlipidemia, unspecified; I10 Essential (primary) hypertension; E11.65 Type 2 diabetes mellitus with hyperglycemia; E87.5 Hyperkalemia; D72.829 Elevated white blood cell count, unspecified; D64.9 Anemia, unspecified; I51.7 Cardiomegaly; E66.9 Obesity, unspecified; Z68.29 Body mass index [BMI] 29.0-29.9, adult
CPT/HCPCS: 36415; 71045-TC-FY; 76775-TC; 80048; 80051; 80053; 80061; 81003; 81015; 82272; 82436; 82550; 82570; 82607; 82668; 82728; 82746; 82962; 83036; 83516; 83520; 83540; 83550; 83605; 83721; 83735; 83880; 83883; 83930; 83935; 84100; 84133; 84155; 84156; 84165; 84300; 84378; 84439; 84443; 84484; 85025; 85027; 85610; 85651; 85730; 86038; 86162; 86225; 86256; 86704; 86706; 86708; 86803; 87040; 87086; 87205; 87340; 87522; 93005; 93010; 93306-TC; 97116-GP; 97161-GP; 99285-25; J1644; J7030

== ENCOUNTER 2018-05-15 20:17 | Inpatient (IN) | payer OTHER ==
--- NOTE | 2018-05-15 21:15 | PDOC ---
History of Present Illness - General Chief Complaint: Blood Sugar Problem Stated Complaint: DIABETIC Time Seen by Provider: 05/15/18 20:50 History Source: Patient Exam Limitations: No Limitations - History of Present Illness Initial Comments: 05/15/18 21:24 78 yo F with a hx of HTN, anemia, HLD, and DM presents to the emergency department with elevated BG after a recent discharge for AUGUSTINE. Per the patient, she had her anti-glycemics discontinued, thus leaving the hospital without coverage after receiving insulin during her course. The patient had a glucose finger stick of 484 yesterday and was given a prescription for januvia and glipizide (25 mg qdaily and 2.5 mg BID) by Dr. Segovia. Her BGs dirk to the low -mid 400s today and was advised to present to the emergency department. Currently, the patient feels anxious due to being in the hospital. Denies the following: fever, chills, SOB, chest pain, nausea, vomiting, polyuria, polydipsia, AMS, visual changes, increased breathing rate, abdominal pain, dysuria, hematuria, diarrhea, and leg pain/swelling. Past History - Past Medical History Allergies/Adverse Reactions: Allergies Allergy/AdvReac Type Severity Reaction Status Date / Time No Known Allergies Allergy Verified 05/15/18 20:31 Home Medications: Ambulatory Orders Atorvastatin Calcium [Lipitor] 20 mg PO HS 05/02/18 Cholecalciferol (Vitamin D3) [D3-2000] 2,000 unit PO DAILY 05/02/18 Ferrous Sulfate [Feosol] 325 mg PO DAILY 05/02/18 Fluticasone Prop 0.05% Nasal [Flonase -] 1 - 2 spray NS BID 05/02/18 Pantoprazole Sodium [Protonix] 40 mg PO DAILY 05/02/18 Amlodipine Besylate [Norvasc -] 10 mg PO DAILY #30 tablet 05/14/18 Calcium Acetate [Phoslo -] 667 mg PO TIDCM #90 capsule 05/14/18 Cyanocobalamin/Cobamamide [B-12 5,000 Mcg Sublingual Tab] 1 each SL DAILY #30 tab.subl 05/14/18 Insulin (Levemir) [Levemir Vial] 25 units SQ AM #5 syringe 05/19/18 COPD: No Diabetes: Yes GI Disorders: Yes (H PYLORI) HTN: Yes Hypercholesterolemia: Yes - Suicide/Smoking/Psychosocial Hx Smoking History: Never smoked Have you smoked in the past 12 months: No Information on smoking cessation initiated: No Hx Alcohol Use: No Drug/Substance Use Hx: No Substance Use Type: None Review of Systems - Review of Systems Able to Perform ROS?: Yes Is the patient limited Faroese proficient: No Constitutional: No: Chills, Diaphoresis, Fever, Weakness HEENTM: No: Eye Pain, Ear Pain, Nose Pain, Throat Pain, Mouth Pain Respiratory: No: Cough, Shortness of Breath, Hemoptysis Cardiac (ROS): No: Chest Pain, Edema, Lightheadedness, Palpitations, Syncope ABD/GI: No: Constipated, Diarrhea, Nausea, Poor Appetite, Poor Fluid Intake, Rectal Bleeding, Vomiting, Tarry Stools : No: Burning, Dysuria, Hematuria Musculoskeletal: No: Back Pain, Joint Pain, Neck Pain Integumentary: No: Bruising, Erythema, Rash Neurological: No: Headache, Numbness, Tingling, Tremors, Dizziness Psychiatric: No: Change in Appetite Endocrine: No: Unexplained Weight Gain *Physical Exam - Vital Signs Last Vital Signs Temp Pulse Resp BP Pulse Ox 97.6 F 90 16 165/66 100 05/15/18 20:30 05/15/18 20:30 05/15/18 20:30 05/15/18 20:30 05/15/18 20:30 - Physical Exam General Appearance: Yes: Nourished, Appropriately Dressed. No: Apparent Distress, Intoxicated HEENT: positive: EOMI, WES, Normal Voice, Symmetrical, Pharynx Normal, Hearing Grossly Normal. negative: Pale Conjunctivae, Scleral Icterus (R), Scleral Icterus (L), Muffled/Hoarse voice, Pharyngeal Erythema, Tonsillar Exudate, Tonsillar Erythema, Nasal Congestion, Rhinorrhea, Excessive drooling Neck: positive: Trachea midline, Supple. negative: Tender, Lymphadenopathy (R) , Lymphadenopathy (L), Tender lateral, Tender midline Respiratory/Chest: positive: Lungs Clear, Normal Breath Sounds. negative: Chest Tender, Respiratory Distress, Accessory Muscle Use, Crackles, Rales, Rhonchi, Stridor, Wheezing Cardiovascular: positive: Regular Rhythm, Regular Rate, S1, S2. negative: Systolic Murmur Gastrointestinal/Abdominal: positive: Normal Bowel Sounds, Flat, Soft. negative : Tender, Distended, Guarding, Rebound Lymphatic: negative: Adenopathy Musculoskeletal: positive: Normal Inspection. negative: CVA Tenderness, Vertebral Tenderness Extremity: positive: Normal Capillary Refill, Normal Inspection, Normal Range of Motion. negative: Tender, Swelling, Calf Tenderness Integumentary: positive: Normal Color, Dry, Warm. 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 negative: EOM Palsy, Facial Droop , Sensory Deficit Moderate Sedation - Procedure Monitoring Vital Signs: Procedure Monitoring Vital Signs Temperature 97.6 F 05/15/18 20:30 Pulse Rate 90 05/15/18 20:30 Respiratory Rate 16 05/15/18 20:30 Blood Pressure 165/66 05/15/18 20:30 O2 Sat by Pulse Oximetry (%) 100 05/15/18 20:30 Heart Score/ECG Review - ECG Intrepretation Comment:: NSR without ST elevations or depressions ED Treatment Course - LABORATORY CBC & Chemistry Diagram: 05/19/18 06:00 05/19/18 06:00 Medical Decision Making - Medical Decision Making 78 yo F with a hx of HTN, anemia, HLD, and DM presents to the emergency department with elevated BG after a recent discharge for AUGUSTINE 2/2 to metformin Initial vitals: Initial Vital Signs Temp Pulse Resp BP Pulse Ox 97.6 F 90 16 165/66 100 05/15/18 20:30 05/15/18 20:30 05/15/18 20:30 05/15/18 20:30 05/15/18 20:30 work up: ddx: HHS vs DKA vs hypergylcemia (2/2 medications vs infectious etiology vs diet ) Laboratory Tests 05/15/18 05/15/18 05/15/18 21:39 21:43 21:43 WBC 9.4 RBC 3.17 L Hgb 9.6 L Hct 27.3 L MCV 86.2 MCH 30.2 MCHC 35.1 RDW 16.0 H Plt Count 506 H MPV 8.5 Absolute Neuts (auto) 6.5 Neutrophils % 69.0 Lymphocytes % 19.7 Monocytes % 8.0 Eosinophils % 2.0 Basophils % 1.3 Nucleated RBC % 0 VBG pH 7.39 POC VBG pCO2 36.9 L POC VBG pO2 30.1 VBG HCO3 22.0 L VBG O2 Sat (João) 51.4 L VBG Base Excess -2.0 Sodium 138 Potassium 3.8 Chloride 103 Carbon Dioxide 21 Anion Gap 14 BUN 98 H Creatinine 6.9 H Creat Clearance w eGFR 5.74 Random Glucose 275 H Lactic Acid Calcium 8.9 Total Bilirubin 0.4 AST 18 ALT 30 Alkaline Phosphatase 76 Total Protein 8.5 H Albumin 4.2 TSH Free T4 Urine Color Urine Appearance Urine pH Ur Specific Nursery Urine Protein Urine Glucose (UA) Urine Ketones Urine Blood Urine Nitrite Urine Bilirubin Urine Urobilinogen Ur Leukocyte Esterase Urine WBC (Auto) Urine RBC (Auto) Urine Casts (Auto) U Epithel Cells (Auto) Urine Bacteria (Auto) Acetone, Qual Negative L 05/15/18 05/15/18 05/15/18 21:43 21:43 23:00 WBC RBC Hgb Hct MCV MCH MCHC RDW Plt Count MPV Absolute Neuts (auto) Neutrophils % Lymphocytes % Monocytes % Eosinophils % Basophils % Nucleated RBC % VBG pH POC VBG pCO2 POC VBG pO2 VBG HCO3 VBG O2 Sat (João) VBG Base Excess Sodium Potassium Chloride Carbon Dioxide Anion Gap BUN Creatinine Creat Clearance w eGFR Random Glucose Lactic Acid 0.6 Calcium Total Bilirubin AST ALT Alkaline Phosphatase Total Protein Albumin TSH 2.29 Free T4 1.12 Urine Color Yellow Urine Appearance Clear Urine pH 7.0 Ur Specific Nursery 1.010 Urine Protein 1+ Urine Glucose (UA) 2+ Urine Ketones Negative Urine Blood Trace Urine Nitrite Negative Urine Bilirubin Negative Urine Urobilinogen 0.2 Ur Leukocyte Esterase Trace Urine WBC (Auto) 5 Urine RBC (Auto) 2 Urine Casts (Auto) 0 U Epithel Cells (Auto) 1.4 Urine Bacteria (Auto) 5.742 Acetone, Qual non-AG hyperglycemia without positive acetone. pH within normal limits. UA shows trace leuk esterase with 5 wbc. no WBC elevation hemoglobin low, but consistent with previous values. patient's creatinine elevated, but improved from previous levels. case was discussed with Dr. Segovia who wants patient to be admitted. Patient was accepted by the hospitalist service. Dispo: Admit *DC/Admit/Observation/Transfer Diagnosis at time of Disposition: AUGUSTINE (acute kidney injury), Hyperglycemia Diabetes Qualifiers: Diabetes mellitus type: type 2 Diabetes mellitus mcc insulin use: without mcc use Diabetes mellitus complication status: with hyperglycemia Qualified Code(s): E11.65 - Type 2 diabetes mellitus with hyperglycemia - Referrals - Patient Instructions - Post Discharge Activity
[2018-05-15] MEDS ORDERED: SODIUM CHLORIDE 1,000 ML IV STA (21:16)
[2018-05-15 21:47] LABS: VENOUS PH 7.39 (7.31-7.41)
[2018-05-15 21:47] LABS: BASO % 1.3 % (0-2.0); HEMATOCRIT 27.3 % (32.4-45.2); HEMOGLOBIN 9.6 GM/dL (10.7-15.3); LYMPH % 19.7 % (8-40); MCH 30.2 pg (25.7-33.7); MCHC 35.1 g/dl (32.0-36.0); MEAN CELL VOLUME 86.2 fl (80-96); MEAN PLT VOLUME 8.5 fl (7.5-11.1); PLATELET COUNT 506 K/MM3 (134-434); RBC 3.17 M/mm3 (3.60-5.2); WHITE BLOOD COUNT 9.4 K/mm3 (4.0-10.0)
[2018-05-15 21:48] LABS: VENOUS PC02 36.9 mmHg (41-51); VENOUS PO2 30.1 mmHg (30-40)
[2018-05-15 22:12] LABS: ALBUMIN 4.2 g/dl (3.4-5.0); ALK PHOS 76 U/L (45-117); ANION GAP 14 MMOL/L (8-16); BILIRUBIN,TOTAL 0.4 mg/dL (0.2-1); BLOOD UREA NITROGEN 98 mg/dL (7-18); CALCIUM 8.9 mg/dL (8.5-10.1); CHLORIDE 103 mmol/L (98-107); CO2 21 mmol/L (21-32); CREATININE 6.9 mg/dL (0.55-1.3); GLUCOSE,RANDOM 275 mg/dL (74-106); POTASSIUM 3.8 mmol/L (3.5-5.1); SGOT/AST 18 U/L (15-37); SGPT/ALT 30 U/L (13-61); SODIUM 138 mmol/L (136-145); TOT PROT 8.5 g/dl (6.4-8.2)
--- NOTE | 2018-05-15 22:33 | PDOC ---
Attending Attestation - Resident Resident Name: Oscar Canales - ED Attending Attestation I have performed the following: I have examined & evaluated the patient, The case was reviewed & discussed with the resident, I agree w/resident's findings & plan, Exceptions are as noted - HPI HPI: 05/15/18 22:34 The patient is a 78 year old female with a past medical history of HTN, HLD, and diabetes here today for evaluation of high blood sugar. The patients family reports that the patient had a blood sugar of 454 at approximately 7:30 PM today. The patients family reports that the patient was discharged recently from the hospital after being admitted for ATN 2/2 metformin. Family reports that the patient started new medications during admission and that her diabetes medications were discontinued due to her renal failure. Family spoke to Dr. Segovia yesterday who gave her renally dosed januvia and glipizide and glucose decreased to 200s. Family spoke to Dr. Segovia again today when her blood sugar was in the 400's and he advised them to come to the ER. Family reports patient is at her normal baseline mental status. Patient denies headache, lightheadedness. Denies fever, chills. Denies chest pain, shortness of breath. Denies nausea, vomiting, diarrhea, abdominal pain. Denies lower extremity edema. Denies urinary symptoms. Denies increase in thirst or hunger. Allergies: Yung Bland PCP: MICHAEL - Physicial Exam PE: 05/15/18 22:40 agree with resident exam - Medical Decision Making 05/15/18 22:24 78yo F hx MMP including DM, recently admitted for ATN 2/2 metformin, other oral hyperglycemics with some improvement, DC yesterday presents to the ED with hyperglycemia at home. DDx includes NG hyperglycemia vs DKA. Labs consistent with non AG hyperglycemia Glucose [address] Segovia, plan to admit pt for glycemic control Case discussed with Dr. Sandoval, pt admitted Heart Score/ECG Review #1 05/15/18 22:20 Twelve-lead EKG was performed and reviewed by me. Normal sinus rhythm, rate 86. Normal axis. No ST elevations.
[2018-05-15 22:36] LABS: ACETONE SERUM NEGATIVE (NEGATIVE)
--- NOTE | 2018-05-15 23:28 | CONSULT ---
Consult Consult Specialty:: Nephrology Reason for Consultation:: AUGUSTINE - History of Present Illness Chief Complaint: hyperglycemia History of Present Illness: Please see note from yesterday. Pt is an 78 year old female that was admitted for renal failure which has been improving. She has history of DM. Her PO meds were stopped secondary to renal failure. She was discharged yesterday however was not given insulin. I was called by the family yesterday afternoon. I called in glipizide and januvia. Her blood sugars improved to the 270 range then went up to the 400s. I advised that they bring her in for insulin. Renal function is improving. She is making urine. - History Source History Provided By: Patient - Past Medical History Cardio/Vascular: Yes: HTN, Hyperlipdemia Renal/: Yes: Renal Failure, Renal Inusuff Endocrine: Yes: Diabetes Mellitus - Alcohol/Substance Use Hx Alcohol Use: No - Smoking History Smoking history: Never smoked Have you smoked in the past 12 months: No Home Medications - Allergies Allergies/Adverse Reactions: Allergies Allergy/AdvReac Type Severity Reaction Status Date / Time No Known Allergies Allergy Verified 05/15/18 20:31 - Home Medications Home Medications: Ambulatory Orders Atorvastatin Calcium [Lipitor] 20 mg PO HS 05/02/18 Cholecalciferol (Vitamin D3) [D3-2000] 2,000 unit PO DAILY 05/02/18 Ferrous Sulfate [Feosol] 325 mg PO DAILY 05/02/18 Fluticasone Prop 0.05% Nasal [Flonase -] 1 - 2 spray NS BID 05/02/18 [place]-3 Fatty Acids/Fish Oil [Fish Oil 1,000 mg Capsule] 1 each PO DAILY Pantoprazole Sodium [Protonix] 40 mg PO DAILY 05/02/18 Amlodipine Besylate [Norvasc -] 10 mg PO DAILY #30 tablet 05/14/18 Calcium Acetate [Phoslo -] 667 mg PO TIDCM #90 capsule 05/14/18 Cyanocobalamin/Cobamamide [B-12 5,000 Mcg Sublingual Tab] 1 each SL DAILY #30 tab.subl 05/14/18 Insulin (Novolog) [Novolog Vial] 0 units SQ AC #1 ea 05/14/18 Insulin Detemir [Levemir Flextouch] 12 unit SQ AM #1 insuln.pen 05/14/18 Lancets [Lancets Ultra Thin] 1 each ACHS #100 each 05/14/18 Miscellaneous Medical Supply [Glucometer Device] 1 each SQ ASDIR #1 kit Miscellaneous Medical Supply [Glucometer Test Strips #100] 1 each SQ ASDIR #1 box 05/14/18 Pen Needle, Diabetic [Pen Needle] 1 each ACHS #100 dis.needle 05/14/18 Sitagliptin Phosphate [Januvia] 25 mg PO DAILY #30 tablet 05/14/18 Family Disease History - Family Disease History Family History: Denies Review of Systems - Review of Systems Constitutional: reports: No Symptoms Eyes: reports: No Symptoms HENT: reports: No Symptoms Neck: reports: No Symptoms Cardiovascular: reports: No Symptoms Respiratory: reports: No Symptoms Gastrointestinal: reports: No Symptoms Genitourinary: reports: No Symptoms Musculoskeletal: reports: No Symptoms Integumentary: reports: No Symptoms Neurological: reports: No Symptoms Endocrine: reports: No Symptoms Hematology/Lymphatic: reports: No Symptoms Physical Exam Vital Signs: Vital Signs Temperature 97.6 F 05/15/18 20:30 Pulse Rate 90 05/15/18 20:30 Respiratory Rate 16 05/15/18 20:30 Blood Pressure 165/66 05/15/18 20:30 O2 Sat by Pulse Oximetry (%) 100 05/15/18 20:30 Constitutional: Yes: Calm Eyes: Yes: Conjunctiva Clear HENT: Yes: Atraumatic Neck: Yes: Supple Cardiovascular: Yes: S1, S2 Respiratory: Yes: CTA Bilaterally Gastrointestinal: Yes: Soft Renal/: Yes: WNL Musculoskeletal: Yes: WNL Edema: Yes Edema: LLE: Trace, RLE: Trace Neurological: Yes: Oriented Psychiatric: Yes: Oriented Labs: CBC, BMP 05/15/18 21:43 05/15/18 21:43 Problem List - Problems (1) AUGUSTINE (acute kidney injury) Code(s): N17.9 - ACUTE KIDNEY FAILURE, UNSPECIFIED (2) Diabetes Code(s): E11.9 - TYPE 2 DIABETES MELLITUS WITHOUT COMPLICATIONS Qualifiers: Diabetes mellitus type: type 2 Diabetes mellitus usp insulin use: without usp use Diabetes mellitus complication status: with hyperglycemia Qualified Code(s): E11.65 - Type 2 diabetes mellitus with hyperglycemia (3) Hyperglycemia Code(s): R73.9 - HYPERGLYCEMIA, UNSPECIFIED (4) Anemia Code(s): D64.9 - ANEMIA, UNSPECIFIED (5) HLD (hyperlipidemia) Code(s): E78.5 - HYPERLIPIDEMIA, UNSPECIFIED Assessment/Plan Current Medications Generic Name Dose Route Start Last Admin Trade Name Freq PRN Reason Stop Dose Admin Amlodipine Besylate 10 mg 05/16/18 10:00 Norvasc - PO DAILY SHELBY Atorvastatin Calcium 20 mg 05/16/18 22:00 Lipitor - PO HS SHELBY Calcium Acetate 667 mg 05/16/18 08:00 Phoslo - PO TIDCM SHELBY Cholecalciferol 2,000 unit 05/16/18 10:00 Vitamin D3 - PO DAILY [facility] Insulin Detemir 12 units 05/16/18 07:00 Levemir Vial SQ AM [facility] Non-Formulary Medication 1 each 05/16/18 10:00 Cyanocobalamin/Cobamamide [B-12 5,000 Mcg Sublingual Tab] SL DAILY [facility] Pantoprazole Sodium 40 mg 05/16/18 10:00 Protonix - PO DAILY [facility] Impression 1. AUGUSTINE 2. hyperglycemia 3. DM 4. HTN 5. anemia 6. HLD 7. elevated kappa and lambda 8. positive andie Plan - renal function is improving - put back on insulin to control blood sugar - endocrine eval - repeat labs in am - so not restart aspirin - hold arb and thiazide - discussed with er and family
[2018-05-15 23:30] LABS: EPI CELLS 1.4 /HPF (0-5); HYALINE CASTS 0 /hpf (0-8); URINE APPEARANCE CLEAR; URINE BACTERIA 5.742 /hpf (NEGATIVE); URINE BILIRUBIN NEGATIVE (<2.0 mg/dL); URINE COLOR YELLOW; URINE GLUCOSE (UA) 2+ (NEGATIVE); URINE KETONE NEGATIVE (NEGATIVE); URINE LEUK ESTERASE TRACE (NEGATIVE); URINE NITRITE NEGATIVE (NEGATIVE); URINE PROTEIN 1+ (NEGATIVE); URINE RBC 2 /hpf (0-4); URINE UROBILINOGEN 0.2 mg/dL (0.2-1.0); URINE WBC 5 /hpf (0-5)
[2018-05-16] MEDS ORDERED: INSULIN (LEVEMIR) 100 UNITS/ML UNITS SQ SCH (07:00)
[2018-05-16] MEDS: CALCIUM ACETATE 667 MG CAPSULE (FP) PO SCH ×3 (08:11→17:50)
[2018-05-16 08:34] LABS: BASO % 0.8 % (0-2.0); EOS % 2.1 % (0-4.5); HEMOGLOBIN 8.7 GM/dL (10.7-15.3); LYMPH % 16.4 % (8-40); MCH 29.6 pg (25.7-33.7); MCHC 34.8 g/dl (32.0-36.0); MEAN CELL VOLUME 85.3 fl (80-96); MEAN PLT VOLUME 8.4 fl (7.5-11.1); MONO % 6.8 % (3.8-10.2); NEUT % 73.9 % (42.8-82.8); PLATELET COUNT 442 K/MM3 (134-434); RBC 2.94 M/mm3 (3.60-5.2); RDW 15.9 % (11.6-15.6); WHITE BLOOD COUNT 8.3 K/mm3 (4.0-10.0)
[2018-05-16 08:40] LABS: ALBUMIN 3.7 g/dl (3.4-5.0); ALK PHOS 65 U/L (45-117); ANION GAP 13 MMOL/L (8-16); BILIRUBIN,TOTAL 0.5 mg/dL (0.2-1); BLOOD UREA NITROGEN 99 mg/dL (7-18); CALCIUM 8.2 mg/dL (8.5-10.1); CHLORIDE 108 mmol/L (98-107); CO2 20 mmol/L (21-32); CREATININE 6.3 mg/dL (0.55-1.3); GLUCOSE,RANDOM 233 mg/dL (74-106); MAGNESIUM 1.3 mg/dL (1.8-2.4); PHOSPHOROUS 4.8 mg/dL (2.5-4.9); POTASSIUM 3.6 mmol/L (3.5-5.1); SGOT/AST 12 U/L (15-37); SGPT/ALT 27 U/L (13-61); SODIUM 140 mmol/L (136-145); TOT PROT 7.4 g/dl (6.4-8.2)
[2018-05-16 08:42] LABS: INR 1.03 (0.83-1.09); PROTHROMBIN TIME (PATIENT) 12.1 SEC (9.7-13.0)
[2018-05-16 08:45] LABS: ACTIVATED PTT 28.8 SECONDS (25.2-36.5)
[2018-05-16] MEDS: amLODIPine BESYLATE 10 MG TABLET (FP) PO SCH (09:41)
[2018-05-16] MEDS: CHOLECALCIFEROL (VIT D3) 1,000 UNIT (25 MCG) TABLET PO SCH (09:41)
[2018-05-16] MEDS: PANTOPRAZOLE 40 MG TABLET (FP) PO SCH (09:41)
[2018-05-16] MEDS ORDERED: INSULIN SLIDING SCALE (NOVOLOG) 1 VIAL SQ SCH (11:00)
--- NOTE | 2018-05-16 14:13 | HP ---
Admitting History and Physical - Admission Chief Complaint: Hyperglycemia History of Present Illness: Patient is an 78 y/o female with past medical history of DM, HTN, HLD. Patient presented to ER with hyperglycemia. Patient says that she was stopped from her diabetic medication due to renal failure. Patient spoke with Dr Segovia and she was given renally dosed medication but blood sugar was still elevated at home. Labs show no anion gap, BMP with glucose 273mg/dL, neg urine acetone. History Source: Patient Limitations to Obtaining History: No Limitations - Past Medical History Cardiovascular: Yes: HTN, Hyperlipdemia Renal/: Yes: Renal Failure, Renal Inusuff Heme/Onc: Yes: Anemia Endocrine: Yes: Diabetes Mellitus - Smoking History Smoking history: Never smoked Have you smoked in the past 12 months: No - Alcohol/Substance Use Hx Alcohol Use: No - Social History Usual Living Arrangement: Yes: Alone ADL: Independent Home Medications - Allergies Allergies/Adverse Reactions: Allergies Allergy/AdvReac Type Severity Reaction Status Date / Time No Known Allergies Allergy Verified 05/15/18 20:31 - Home Medications Home Medications: Ambulatory Orders Atorvastatin Calcium [Lipitor] 20 mg PO HS 05/02/18 Cholecalciferol (Vitamin D3) [D3-2000] 2,000 unit PO DAILY 05/02/18 Ferrous Sulfate [Feosol] 325 mg PO DAILY 05/02/18 Fluticasone Prop 0.05% Nasal [Flonase -] 1 - 2 spray NS BID 05/02/18 [place]-3 Fatty Acids/Fish Oil [Fish Oil 1,000 mg Capsule] 1 each PO DAILY Pantoprazole Sodium [Protonix] 40 mg PO DAILY 05/02/18 Amlodipine Besylate [Norvasc -] 10 mg PO DAILY #30 tablet 05/14/18 Calcium Acetate [Phoslo -] 667 mg PO TIDCM #90 capsule 05/14/18 Cyanocobalamin/Cobamamide [B-12 5,000 Mcg Sublingual Tab] 1 each SL DAILY #30 tab.subl 05/14/18 Sitagliptin Phosphate [Januvia] 25 mg PO DAILY #30 tablet 05/14/18 Glipizide [Glipizide ER] 2.5 mg PO DAILY 05/15/18 Review of Systems - Review of Systems Constitutional: reports: No Symptoms Eyes: reports: No Symptoms HENT: reports: No Symptoms Neck: reports: No Symptoms Cardiovascular: reports: No Symptoms Respiratory: reports: No Symptoms Gastrointestinal: reports: No Symptoms Genitourinary: reports: No Symptoms Breasts: reports: No Symptoms Reported Musculoskeletal: reports: No Symptoms Integumentary: reports: No Symptoms Neurological: reports: No Symptoms Endocrine: reports: No Symptoms Hematology/Lymphatic: reports: No Symptoms Psychiatric: reports: No Symptoms Physical Examination Vital Signs: Vital Signs Temperature 98.2 F 05/16/18 06:12 Pulse Rate 80 05/16/18 06:12 Respiratory Rate 20 05/16/18 06:12 Blood Pressure 150/73 05/16/18 06:12 O2 Sat by Pulse Oximetry (%) 99 05/16/18 09:00 Constitutional: Yes: Well Nourished, No Distress, Calm Eyes: Yes: Conjunctiva Clear HENT: Yes: Atraumatic Cardiovascular: Yes: Regular Rate and Rhythm Respiratory: Yes: Regular Gastrointestinal: Yes: Normal Bowel Sounds, Soft Musculoskeletal: Yes: Muscle Weakness Extremities: Yes: WNL Edema: No Neurological: Yes: Alert, Oriented Psychiatric: Yes: Alert, Oriented Labs: CBC, BMP 05/16/18 07:00 05/16/18 07:00 Imaging - Results Chest X-ray: Report Reviewed EKG: Report Reviewed Problem List - Problems (1) AUGUSTINE (acute kidney injury) Assessment/Plan: -renal on board -BUN/Cr 99/6.3 -monitor renal function daily Code(s): N17.9 - ACUTE KIDNEY FAILURE, UNSPECIFIED (2) Diabetes Assessment/Plan: -levemir -ISS -BGM ACHS -diabetic diet Code(s): E11.9 - TYPE 2 DIABETES MELLITUS WITHOUT COMPLICATIONS Qualifiers: Diabetes mellitus type: type 2 Diabetes mellitus mcc insulin use: without mcc use Diabetes mellitus complication status: with hyperglycemia Qualified Code(s): E11.65 - Type 2 diabetes mellitus with hyperglycemia (3) HLD (hyperlipidemia) Assessment/Plan: continue atorvastatin Code(s): E78.5 - HYPERLIPIDEMIA, UNSPECIFIED (4) HTN (hypertension) Assessment/Plan: -continue with amlodipine Code(s): I10 - ESSENTIAL (PRIMARY) HYPERTENSION Assessment/Plan see probled list dvt ppx
--- NOTE | 2018-05-16 14:38 | CONSULT ---
Consult Consult Specialty:: endocrine Referred by:: patti elam Reason for Consultation:: diabetes mellitus type 2 - History of Present Illness Chief Complaint: high sugars History of Present Illness: 78 yo F with a hx of DM< 2,HTN, anemia, HLD, presents to the emergency department with high blod sugars, despite recent strict diet and discharge for AUGUSTINE. Per the patient, she had her anti-glycemics discontinued, has not felt comfortable with using insulin at home. The patient had a glucose finger stick of 484,nausea,feeling ill,denies fever cough or chest pain. - Past Medical History Cardio/Vascular: Yes: HTN, Hyperlipdemia Renal/: Yes: Renal Failure, Renal Inusuff Endocrine: Yes: Diabetes Mellitus - Alcohol/Substance Use Hx Alcohol Use: No - Smoking History Smoking history: Never smoked Have you smoked in the past 12 months: No - Social History ADL: Independent Home Medications - Allergies Allergies/Adverse Reactions: Allergies Allergy/AdvReac Type Severity Reaction Status Date / Time No Known Allergies Allergy Verified 05/15/18 20:31 - Home Medications Home Medications: Ambulatory Orders Atorvastatin Calcium [Lipitor] 20 mg PO HS 05/02/18 Cholecalciferol (Vitamin D3) [D3-2000] 2,000 unit PO DAILY 05/02/18 Ferrous Sulfate [Feosol] 325 mg PO DAILY 05/02/18 Fluticasone Prop 0.05% Nasal [Flonase -] 1 - 2 spray NS BID 05/02/18 Dowell-3 Fatty Acids/Fish Oil [Fish Oil 1,000 mg Capsule] 1 each PO DAILY Pantoprazole Sodium [Protonix] 40 mg PO DAILY 05/02/18 Amlodipine Besylate [Norvasc -] 10 mg PO DAILY #30 tablet 05/14/18 Calcium Acetate [Phoslo -] 667 mg PO TIDCM #90 capsule 05/14/18 Cyanocobalamin/Cobamamide [B-12 5,000 Mcg Sublingual Tab] 1 each SL DAILY #30 tab.subl 05/14/18 Sitagliptin Phosphate [Januvia] 25 mg PO DAILY #30 tablet 05/14/18 Glipizide [Glipizide ER] 2.5 mg PO DAILY 05/15/18 Review of Systems - Review of Systems Constitutional: reports: Lethargy, Weakness Eyes: reports: No Symptoms HENT: reports: No Symptoms Neck: reports: No Symptoms Cardiovascular: reports: Shortness of Breath Respiratory: reports: Exercise Intolerance Gastrointestinal: reports: Bloating, Constipation Genitourinary: reports: No Symptoms Breasts: reports: No Symptoms Reported Musculoskeletal: reports: Decreased ROM, Muscle Cramps, Muscle Weakness Neurological: reports: Unsteady Gait, Weakness Endocrine: reports: Unexplained Weight Gain Physical Exam Vital Signs: Vital Signs Temperature 98.2 F 05/16/18 06:12 Pulse Rate 80 05/16/18 06:12 Respiratory Rate 20 05/16/18 06:12 Blood Pressure 150/73 05/16/18 06:12 O2 Sat by Pulse Oximetry (%) 99 05/16/18 09:00 Constitutional: Yes: Anxious Eyes: Yes: EOM Intact HENT: Yes: Normocephalic Neck: Yes: Trachea Midline Cardiovascular: Yes: Regular Rate and Rhythm Respiratory: Yes: CTA Bilaterally Gastrointestinal: Yes: Normal Bowel Sounds ...Rectal Exam: Yes: Deferred Renal/: Yes: WNL Musculoskeletal: Yes: Muscle Weakness Extremities: Yes: WNL Edema: No Neurological: Yes: Alert, Oriented Labs: CBC, BMP 05/16/18 07:00 05/16/18 07:00 Problem List - Problems (1) AUGUSTINE (acute kidney injury) Code(s): N17.9 - ACUTE KIDNEY FAILURE, UNSPECIFIED (2) Diabetes Code(s): E11.9 - TYPE 2 DIABETES MELLITUS WITHOUT COMPLICATIONS Qualifiers: Diabetes mellitus type: type 2 Diabetes mellitus moth exterminator insulin use: without moth exterminator use Diabetes mellitus complication status: with hyperglycemia Qualified Code(s): E11.65 - Type 2 diabetes mellitus with hyperglycemia (3) Hyperglycemia Code(s): R73.9 - HYPERGLYCEMIA, UNSPECIFIED (4) Anemia Code(s): D64.9 - ANEMIA, UNSPECIFIED (5) HLD (hyperlipidemia) Code(s): E78.5 - HYPERLIPIDEMIA, UNSPECIFIED (6) HTN (hypertension) Code(s): I10 - ESSENTIAL (PRIMARY) HYPERTENSION (7) Hip pain, left Code(s): M25.552 - PAIN IN LEFT HIP (8) Hives Code(s): L50.9 - URTICARIA, UNSPECIFIED Assessment/Plan Current Active Problems AUGUSTINE (acute kidney injury) (Acute) Diabetes (Acute) Hyperglycemia (Acute) Abnormal Lab Results 05/15/18 05/15/18 05/15/18 21:39 21:43 21:43 RBC 3.17 L Hgb 9.6 L Hct 27.3 L RDW 16.0 H Plt Count 506 H POC VBG pCO2 36.9 L VBG HCO3 22.0 L VBG O2 Sat (João) 51.4 L Chloride Carbon Dioxide BUN 98 H Creatinine 6.9 H Random Glucose 275 H Calcium Magnesium AST Total Protein 8.5 H Acetone, Qual Negative L 05/16/18 05/16/18 07:00 07:00 RBC 2.94 L Hgb 8.7 L Hct 25.0 L RDW 15.9 H Plt Count 442 H POC VBG pCO2 VBG HCO3 VBG O2 Sat (João) Chloride 108 H Carbon Dioxide 20 L BUN 99 H Creatinine 6.3 H Random Glucose 233 H Calcium 8.2 L Magnesium 1.3 L AST 12 L Total Protein Acetone, Qual Laboratory Results - last 24 hr 05/15/18 05/15/18 05/15/18 21:39 21:43 21:43 WBC 9.4 RBC 3.17 L Hgb 9.6 L Hct 27.3 L MCV 86.2 MCH 30.2 MCHC 35.1 RDW 16.0 H Plt Count 506 H MPV 8.5 Absolute Neuts (auto) 6.5 Neutrophils % 69.0 Lymphocytes % 19.7 Monocytes % 8.0 Eosinophils % 2.0 Basophils % 1.3 Nucleated RBC % 0 PT with INR INR PTT (Actin FS) VBG pH 7.39 POC VBG pCO2 36.9 L POC VBG pO2 30.1 VBG HCO3 22.0 L VBG O2 Sat (João) 51.4 L VBG Base Excess -2.0 Sodium 138 Potassium 3.8 Chloride 103 Carbon Dioxide 21 Anion Gap 14 BUN 98 H Creatinine 6.9 H Creat Clearance w eGFR 5.74 POC Glucometer Random Glucose 275 H Lactic Acid Calcium 8.9 Phosphorus Magnesium Total Bilirubin 0.4 AST 18 ALT 30 Alkaline Phosphatase 76 Total Protein 8.5 H Albumin 4.2 TSH Free T4 Urine Color Urine Appearance Urine pH Ur Specific [place] Urine Protein Urine Glucose (UA) Urine Ketones Urine Blood Urine Nitrite Urine Bilirubin Urine Urobilinogen Ur Leukocyte Esterase Urine WBC (Auto) Urine RBC (Auto) Urine Casts (Auto) U Epithel Cells (Auto) Urine Bacteria (Auto) Acetone, Qual Negative L 05/15/18 05/15/18 05/15/18 21:43 21:43 23:00 WBC RBC Hgb Hct MCV MCH MCHC RDW Plt Count MPV Absolute Neuts (auto) Neutrophils % Lymphocytes % Monocytes % Eosinophils % Basophils % Nucleated RBC % PT with INR INR PTT (Actin FS) VBG pH POC VBG pCO2 POC VBG pO2 VBG HCO3 VBG O2 Sat (João) VBG Base Excess Sodium Potassium Chloride Carbon Dioxide Anion Gap BUN Creatinine Creat Clearance w eGFR POC Glucometer Random Glucose Lactic Acid 0.6 Calcium Phosphorus Magnesium Total Bilirubin AST ALT Alkaline Phosphatase Total Protein Albumin TSH 2.29 Free T4 1.12 Urine Color Yellow Urine Appearance Clear Urine pH 7.0 Ur Specific [place] 1.010 Urine Protein 1+ Urine Glucose (UA) 2+ Urine Ketones Negative Urine Blood Trace Urine Nitrite Negative Urine Bilirubin Negative Urine Urobilinogen 0.2 Ur Leukocyte Esterase Trace Urine WBC (Auto) 5 Urine RBC (Auto) 2 Urine Casts (Auto) 0 U Epithel Cells (Auto) 1.4 Urine Bacteria (Auto) 5.742 Acetone, Qual 05/16/18 05/16/18 05/16/18 06:09 07:00 07:00 WBC 8.3 RBC 2.94 L Hgb 8.7 L Hct 25.0 L MCV 85.3 MCH 29.6 MCHC 34.8 RDW 15.9 H Plt Count 442 H MPV 8.4 Absolute Neuts (auto) 6.1 Neutrophils % 73.9 Lymphocytes % 16.4 Monocytes % 6.8 Eosinophils % 2.1 Basophils % 0.8 Nucleated RBC % 0 PT with INR 12.10 INR 1.03 PTT (Actin FS) 28.8 VBG pH POC VBG pCO2 POC VBG pO2 VBG HCO3 VBG O2 Sat (João) VBG Base Excess Sodium Potassium Chloride Carbon Dioxide Anion Gap BUN Creatinine Creat Clearance w eGFR POC Glucometer 244 Random Glucose Lactic Acid Calcium Phosphorus Magnesium Total Bilirubin AST ALT Alkaline Phosphatase Total Protein Albumin TSH Free T4 Urine Color Urine Appearance Urine pH Ur Specific [place] Urine Protein Urine Glucose (UA) Urine Ketones Urine Blood Urine Nitrite Urine Bilirubin Urine Urobilinogen Ur Leukocyte Esterase Urine WBC (Auto) Urine RBC (Auto) Urine Casts (Auto) U Epithel Cells (Auto) Urine Bacteria (Auto) Acetone, Qual 05/16/18 05/16/18 07:00 11:21 WBC RBC Hgb Hct MCV MCH MCHC RDW Plt Count MPV Absolute Neuts (auto) Neutrophils % Lymphocytes % Monocytes % Eosinophils % Basophils % Nucleated RBC % PT with INR INR PTT (Actin FS) VBG pH POC VBG pCO2 POC VBG pO2 VBG HCO3 VBG O2 Sat (João) VBG Base Excess Sodium 140 Potassium 3.6 Chloride 108 H Carbon Dioxide 20 L Anion Gap 13 BUN 99 H Creatinine 6.3 H Creat Clearance w eGFR 6.38 POC Glucometer 243 Random Glucose 233 H Lactic Acid Calcium 8.2 L Phosphorus 4.8 Magnesium 1.3 L Total Bilirubin 0.5 AST 12 L ALT 27 Alkaline Phosphatase 65 Total Protein 7.4 Albumin 3.7 TSH Free T4 Urine Color Urine Appearance Urine pH Ur Specific [place] Urine Protein Urine Glucose (UA) Urine Ketones Urine Blood Urine Nitrite Urine Bilirubin Urine Urobilinogen Ur Leukocyte Esterase Urine WBC (Auto) Urine RBC (Auto) Urine Casts (Auto) U Epithel Cells (Auto) Urine Bacteria (Auto) Acetone, Qual plan: bgm qid novolog insulin levemir 20 units am daily
--- NOTE | 2018-05-16 16:14 | EKG ---
Test Reason : Blood Pressure : / mmHG Vent. Rate : 086 BPM Atrial Rate : 086 BPM P-R Int : 148 ms QRS Dur : 068 ms QT Int : 396 ms P-R-T Axes : 036 036 020 degrees QTc Int : 473 ms NORMAL SINUS RHYTHM LOW VOLTAGE QRS BORDERLINE ECG WHEN COMPARED WITH ECG OF 03-MAY-2018 06:21, CRITERIA FOR SEPTAL INFARCT ARE NO LONGER PRESENT Confirmed by ERICH BARRERA MD ([id number]) on 05/16/2018 4:13:53 PM Referred By: Confirmed By:ERICH BARRERA MD
--- NOTE | 2018-05-16 16:19 | PN ---
Progress Note, Physician History of Present Illness: Pt seen and examined at bedside. She is awake and alert. She denies shortness of breath. - Current Medication List Current Medications: Active Medications Amlodipine Besylate (Norvasc -) 10 mg PO DAILY [facility] Last Admin: 05/16/18 09:41 Dose: 10 mg Atorvastatin Calcium (Lipitor -) 20 mg PO HS [facility] Calcium Acetate (Phoslo -) 667 mg PO TIDCM [facility] Last Admin: 05/16/18 11:56 Dose: 667 mg Cholecalciferol (Vitamin D3 -) 2,000 unit PO DAILY [facility] Last Admin: 05/16/18 09:41 Dose: 2,000 unit Insulin Aspart (Novolog Vial Sliding Scale -) 1 vial SQ ACHS [facility]; Protocol Insulin Detemir (Levemir Vial) 20 units SQ AM [facility] Magnesium Sulfate (Magnesium Sulfate) 1 gm IVPB ONCE ONE Stop: 05/16/18 16:17 Non-Formulary Medication (Cyanocobalamin/Cobamamide [B-12 5,000 Mcg Sublingual Tab]) 1 each SL DAILY [facility] Pantoprazole Sodium (Protonix -) 40 mg PO DAILY [facility] Last Admin: 05/16/18 09:41 Dose: 40 mg - Objective Vital Signs: Vital Signs Temperature 97.9 F 05/16/18 15:40 Pulse Rate 85 05/16/18 14:45 Respiratory Rate 18 05/16/18 14:45 Blood Pressure 138/71 05/16/18 14:45 O2 Sat by Pulse Oximetry (%) 99 05/16/18 09:00 Constitutional: Yes: Calm Eyes: Yes: Conjunctiva Clear HENT: Yes: Atraumatic Neck: Yes: Supple Cardiovascular: Yes: S1, S2 Respiratory: Yes: CTA Bilaterally Gastrointestinal: Yes: Soft Genitourinary: Yes: WNL Musculoskeletal: Yes: WNL Edema: No Neurological: Yes: Oriented Psychiatric: Yes: Oriented Labs: CBC, BMP 05/16/18 07:00 05/16/18 07:00 INR, PTT INR 1.03 (0.83-1.09) 05/16/18 07:00 Problem List - Problems (1) AUGUSTINE (acute kidney injury) Code(s): N17.9 - ACUTE KIDNEY FAILURE, UNSPECIFIED (2) Diabetes Code(s): E11.9 - TYPE 2 DIABETES MELLITUS WITHOUT COMPLICATIONS Qualifiers: Diabetes mellitus type: type 2 Diabetes mellitus long term care pharmacist insulin use: without prison use Diabetes mellitus complication status: with hyperglycemia Qualified Code(s): E11.65 - Type 2 diabetes mellitus with hyperglycemia (3) Hyperglycemia Code(s): R73.9 - HYPERGLYCEMIA, UNSPECIFIED (4) Anemia Code(s): D64.9 - ANEMIA, UNSPECIFIED (5) HLD (hyperlipidemia) Code(s): E78.5 - HYPERLIPIDEMIA, UNSPECIFIED Assessment/Plan Current Medications Generic Name Dose Route Start Last Admin Trade Name Eric PRN Reason Stop Dose Admin Amlodipine Besylate 10 mg 05/16/18 10:00 05/16/18 09:41 Norvasc - PO 10 mg DAILY [facility] Administration Atorvastatin Calcium 20 mg 05/16/18 22:00 Lipitor - PO HS [facility] Calcium Acetate 667 mg 05/16/18 08:00 05/16/18 11:56 Phoslo - PO 667 mg TIDCM [facility] Administration Cholecalciferol 2,000 unit 05/16/18 10:00 05/16/18 09:41 Vitamin D3 - PO 2,000 unit DAILY [facility] Administration Insulin Aspart 1 vial 05/16/18 14:32 Novolog Vial Sliding Scale - SQ ACHS [facility] Protocol Insulin Detemir 20 units 05/16/18 14:32 Levemir Vial SQ AM [facility] Magnesium Sulfate 1 gm 05/16/18 16:16 Magnesium Sulfate IVPB 05/16/18 16:17 ONCE ONE Non-Formulary Medication 1 each 05/16/18 10:00 Cyanocobalamin/Cobamamide [B-12 5,000 Mcg Sublingual Tab] SL DAILY [facility] Pantoprazole Sodium 40 mg 05/16/18 10:00 05/16/18 09:41 Protonix - PO 40 mg DAILY [facility] Administration Impression 1. AUGUSTINE 2. hyperglycemia 3. DM 4. HTN 5. anemia 6. HLD 7. elevated kappa and lambda 8. positive andie Plan - renal function continues to improve - likely resolving atn - pt doesnt want a biopsy - asa on hold - endocrine eval appreciated, pt on insulin - avoid hyperglycemia - hold arb and thiazide
[2018-05-16] MEDS: INSULIN SLIDING SCALE (NOVOLOG) 1 VIAL SQ SCH ×2 (16:24→21:22)
[2018-05-16] MEDS ORDERED: MAGNESIUM SULF 50% (8.12 MEQ/2 ML-1 GM VIAL) IVPB ONE (16:45)
[2018-05-16] MEDS: ATORVASTATIN CA 20 MG TABLET (FP) PO SCH (21:23)
[2018-05-17] MEDS: INSULIN SLIDING SCALE (NOVOLOG) 1 VIAL SQ SCH ×4 (06:02→21:41)
[2018-05-17] MEDS: INSULIN (LEVEMIR) 100 UNITS/ML UNITS SQ SCH (06:34)
[2018-05-17 07:39] LABS: HEMATOCRIT 26.6 % (32.4-45.2); HEMOGLOBIN 9.6 GM/dL (10.7-15.3); MCH 30.9 pg (25.7-33.7); MCHC 36.3 g/dl (32.0-36.0); MEAN CELL VOLUME 85.1 fl (80-96); MEAN PLT VOLUME 8.4 fl (7.5-11.1); PLATELET COUNT 479 K/MM3 (134-434); RBC 3.12 M/mm3 (3.60-5.2); RDW 15.9 % (11.6-15.6); WHITE BLOOD COUNT 8.7 K/mm3 (4.0-10.0)
[2018-05-17 08:09] LABS: ALBUMIN 3.7 g/dl (3.4-5.0); ALK PHOS 64 U/L (45-117); ANION GAP 12 MMOL/L (8-16); BILIRUBIN,TOTAL 0.6 mg/dL (0.2-1); BLOOD UREA NITROGEN 100 mg/dL (7-18); CALCIUM 8.8 mg/dL (8.5-10.1); CHLORIDE 107 mmol/L (98-107); CO2 20 mmol/L (21-32); CREATININE 5.9 mg/dL (0.55-1.3); GLUCOSE,RANDOM 219 mg/dL (74-106); POTASSIUM 3.6 mmol/L (3.5-5.1); SGOT/AST 15 U/L (15-37); SGPT/ALT 27 U/L (13-61); SODIUM 139 mmol/L (136-145); TOT PROT 7.5 g/dl (6.4-8.2)
[2018-05-17] MEDS: CALCIUM ACETATE 667 MG CAPSULE (FP) PO SCH ×3 (08:24→17:32)
[2018-05-17] MEDS: PANTOPRAZOLE 40 MG TABLET (FP) PO SCH (09:37)
[2018-05-17] MEDS: CHOLECALCIFEROL (VIT D3) 1,000 UNIT (25 MCG) TABLET PO SCH (09:37)
[2018-05-17] MEDS: CYANOCOBALAMIN 1,000 MCG TABLET (FP) PO SCH (09:37)
[2018-05-17] MEDS: amLODIPine BESYLATE 10 MG TABLET (FP) PO SCH (09:37)
--- NOTE | 2018-05-17 09:48 | PN ---
Progress Note, Physician - Current Medication List Current Medications: Active Medications Amlodipine Besylate (Norvasc -) 10 mg PO DAILY [facility] Last Admin: 05/17/18 09:37 Dose: 10 mg Atorvastatin Calcium (Lipitor -) 20 mg PO HS [facility] Last Admin: 05/16/18 21:23 Dose: 20 mg Calcium Acetate (Phoslo -) 667 mg PO TIDCM [facility] Last Admin: 05/17/18 08:24 Dose: 667 mg Cholecalciferol (Vitamin D3 -) 2,000 unit PO DAILY [facility] Last Admin: 05/17/18 09:37 Dose: 2,000 unit Cyanocobalamin (Vitamin B12 -) 2,000 mcg PO DAILY [facility] Last Admin: 05/17/18 09:37 Dose: 2,000 mcg Insulin Aspart (Novolog Vial Sliding Scale -) 1 vial SQ [facility]; Protocol Last Admin: 05/17/18 06:02 Dose: Not Given Insulin Detemir (Levemir Vial) 20 units SQ AM [facility] Last Admin: 05/17/18 06:34 Dose: 20 units Pantoprazole Sodium (Protonix -) 40 mg PO DAILY [facility] Last Admin: 05/17/18 09:37 Dose: 40 mg - Objective Vital Signs: Vital Signs Temperature 98.4 F 05/17/18 06:00 Pulse Rate 77 05/17/18 09:36 Respiratory Rate 20 05/17/18 09:36 Blood Pressure 136/76 05/17/18 09:36 O2 Sat by Pulse Oximetry (%) 99 05/16/18 09:00 Cardiovascular: Yes: Regular Rate and Rhythm Respiratory: Yes: Regular, CTA Bilaterally Gastrointestinal: Yes: Normal Bowel Sounds, Soft Labs: CBC, BMP 05/17/18 06:40 05/17/18 06:40 INR, PTT INR 1.03 (0.83-1.09) 05/16/18 07:00 Assessment/Plan - Problems (1) AUGUSTINE (acute kidney injury) Assessment/Plan: -renal on board -BUN/Cr 99/6.3 -monitor renal function daily Code(s): N17.9 - ACUTE KIDNEY FAILURE, UNSPECIFIED (2) Diabetes Assessment/Plan: -levemir -ISS -BGM [facility] -diabetic diet and taeching Code(s): E11.9 - TYPE 2 DIABETES MELLITUS WITHOUT COMPLICATIONS Qualifiers: Diabetes mellitus type: type 2 Diabetes mellitus mcfp insulin use: without mcfp use Diabetes mellitus complication status: with hyperglycemia Qualified Code(s): E11.65 - Type 2 diabetes mellitus with hyperglycemia (3) HLD (hyperlipidemia) Assessment/Plan: continue atorvastatin Code(s): E78.5 - HYPERLIPIDEMIA, UNSPECIFIED (4) HTN (hypertension) Assessment/Plan: -continue with amlodipine Code(s): I10 - ESSENTIAL (PRIMARY) HYPERTENSION
--- NOTE | 2018-05-17 14:19 | PN ---
Progress Note, Physician History of Present Illness: Pt seen and examined at bedside. Renal function improving. - Current Medication List Current Medications: Active Medications Amlodipine Besylate (Norvasc -) 10 mg PO DAILY [facility] Last Admin: 05/17/18 09:37 Dose: 10 mg Atorvastatin Calcium (Lipitor -) 20 mg PO HS [facility] Last Admin: 05/16/18 21:23 Dose: 20 mg Calcium Acetate (Phoslo -) 667 mg PO TIDCM [facility] Last Admin: 05/17/18 12:29 Dose: 667 mg Cholecalciferol (Vitamin D3 -) 2,000 unit PO DAILY [facility] Last Admin: 05/17/18 09:37 Dose: 2,000 unit Cyanocobalamin (Vitamin B12 -) 2,000 mcg PO DAILY [facility] Last Admin: 05/17/18 09:37 Dose: 2,000 mcg Insulin Aspart (Novolog Vial Sliding Scale -) 1 vial SQ ACHS [facility]; Protocol Last Admin: 05/17/18 12:23 Dose: 4 units Insulin Detemir (Levemir Vial) 20 units SQ AM [facility] Last Admin: 05/17/18 06:34 Dose: 20 units Pantoprazole Sodium (Protonix -) 40 mg PO DAILY [facility] Last Admin: 05/17/18 09:37 Dose: 40 mg - Objective Vital Signs: Vital Signs Temperature 98 F 05/17/18 11:39 Pulse Rate 77 05/17/18 09:36 Respiratory Rate 20 05/17/18 09:36 Blood Pressure 136/76 05/17/18 09:36 O2 Sat by Pulse Oximetry (%) 99 05/16/18 09:00 Constitutional: Yes: Calm Eyes: Yes: Conjunctiva Clear HENT: Yes: Atraumatic Neck: Yes: Supple Cardiovascular: Yes: S1, S2 Respiratory: Yes: CTA Bilaterally Gastrointestinal: Yes: Soft Genitourinary: Yes: WNL Musculoskeletal: Yes: WNL Edema: No Neurological: Yes: Oriented Psychiatric: Yes: Oriented Labs: CBC, BMP 05/17/18 06:40 05/17/18 06:40 INR, PTT INR 1.03 (0.83-1.09) 05/16/18 07:00 Problem List - Problems (1) AUGUSTINE (acute kidney injury) Code(s): N17.9 - ACUTE KIDNEY FAILURE, UNSPECIFIED (2) Diabetes Code(s): E11.9 - TYPE 2 DIABETES MELLITUS WITHOUT COMPLICATIONS Qualifiers: Diabetes mellitus type: type 2 Diabetes mellitus nursing home insulin use: without meterman use Diabetes mellitus complication status: with hyperglycemia Qualified Code(s): E11.65 - Type 2 diabetes mellitus with hyperglycemia (3) Hyperglycemia Code(s): R73.9 - HYPERGLYCEMIA, UNSPECIFIED (4) Anemia Code(s): D64.9 - ANEMIA, UNSPECIFIED (5) HLD (hyperlipidemia) Code(s): E78.5 - HYPERLIPIDEMIA, UNSPECIFIED Assessment/Plan Current Medications Generic Name Dose Route Start Last Admin Trade Name Freq PRN Reason Stop Dose Admin Amlodipine Besylate 10 mg 05/16/18 10:00 05/17/18 09:37 Norvasc - PO 10 mg DAILY [facility] Administration Atorvastatin Calcium 20 mg 05/16/18 22:00 05/16/18 21:23 Lipitor - PO 20 mg HS [facility] Administration Calcium Acetate 667 mg 05/16/18 08:00 05/17/18 12:29 Phoslo - PO 667 mg TIDCM [facility] Administration Cholecalciferol 2,000 unit 05/16/18 10:00 05/17/18 09:37 Vitamin D3 - PO 2,000 unit DAILY [facility] Administration Cyanocobalamin 2,000 mcg 05/17/18 10:00 05/17/18 09:37 Vitamin B12 - PO 2,000 mcg DAILY [facility] Administration Insulin Aspart 1 vial 05/16/18 14:32 05/17/18 12:23 Novolog Vial Sliding Scale - SQ 4 units ACHS [facility] Administration Protocol Insulin Detemir 20 units 05/16/18 14:32 05/17/18 06:34 Levemir Vial SQ 20 units AM [facility] Administration Pantoprazole Sodium 40 mg 05/16/18 10:00 05/17/18 09:37 Protonix - PO 40 mg DAILY [facility] Administration Impression 1. AUGUSTINE 2. hyperglycemia 3. DM 4. HTN 5. anemia 6. HLD 7. elevated kappa and lambda 8. positive andie Plan - renal function improving - likely resolving atn - pt doesnt want a biopsy - asa on hold - avoid hyperglycemia - hold arb and thiazide - insulin training
[2018-05-17] MEDS: ATORVASTATIN CA 20 MG TABLET (FP) PO SCH (21:41)
[2018-05-18] MEDS: INSULIN (LEVEMIR) 100 UNITS/ML UNITS SQ SCH (06:57)
[2018-05-18] MEDS: INSULIN SLIDING SCALE (NOVOLOG) 1 VIAL SQ SCH ×3 (06:58→17:37)
[2018-05-18] MEDS ORDERED: INSULIN (NOVOLOG) ASPART 100 UNITS/ML 10ML VIAL ONE ×2 (07:18→17:34)
[2018-05-18] MEDS ORDERED: PT OWN MED DRAWER 7, Y5N ONE (07:19)
[2018-05-18 08:03] LABS: ALBUMIN 4.1 g/dl (3.4-5.0); ALK PHOS 65 U/L (45-117); ANION GAP 13 MMOL/L (8-16); BILIRUBIN,TOTAL 0.6 mg/dL (0.2-1); BLOOD UREA NITROGEN 96 mg/dL (7-18); CALCIUM 8.7 mg/dL (8.5-10.1); CHLORIDE 105 mmol/L (98-107); CO2 21 mmol/L (21-32); CREATININE 5.8 mg/dL (0.55-1.3); GLUCOSE,RANDOM 210 mg/dL (74-106); POTASSIUM 3.6 mmol/L (3.5-5.1); SGOT/AST 17 U/L (15-37); SGPT/ALT 27 U/L (13-61); SODIUM 139 mmol/L (136-145); TOT PROT 8.1 g/dl (6.4-8.2)
[2018-05-18] MEDS: CALCIUM ACETATE 667 MG CAPSULE (FP) PO SCH ×3 (08:45→17:53)
[2018-05-18] MEDS: PANTOPRAZOLE 40 MG TABLET (FP) PO SCH (09:32)
[2018-05-18] MEDS: CHOLECALCIFEROL (VIT D3) 1,000 UNIT (25 MCG) TABLET PO SCH (09:33)
[2018-05-18] MEDS: CYANOCOBALAMIN 1,000 MCG TABLET (FP) PO SCH (09:33)
[2018-05-18] MEDS: amLODIPine BESYLATE 10 MG TABLET (FP) PO SCH (09:33)
[2018-05-18] MEDS ORDERED: INSULIN (LEVEMIR) 100 UNITS/ML UNITS SQ SCH (12:22)
--- NOTE | 2018-05-18 12:29 | PN ---
Progress Note, Physician Chief Complaint: sugar levels improve on insulin she and family feel she is capable and wiling t inject insulin and check bs as needed,she is "expert at checking blood sugar" per son - Current Medication List Current Medications: Active Medications Amlodipine Besylate (Norvasc -) 10 mg PO DAILY [facility] Last Admin: 05/18/18 09:33 Dose: 10 mg Atorvastatin Calcium (Lipitor -) 20 mg PO HS [facility] Last Admin: 05/17/18 21:41 Dose: 20 mg Calcium Acetate (Phoslo -) 667 mg PO TIDCM [facility] Last Admin: 05/18/18 08:45 Dose: 667 mg Cholecalciferol (Vitamin D3 -) 2,000 unit PO DAILY [facility] Last Admin: 05/18/18 09:33 Dose: 2,000 unit Cyanocobalamin (Vitamin B12 -) 2,000 mcg PO DAILY [facility] Last Admin: 05/18/18 09:33 Dose: 2,000 mcg Insulin Aspart (Novolog Vial Sliding Scale -) 1 vial SQ BIDAC [facility]; Protocol Insulin Detemir (Levemir Vial) 25 units SQ AM [facility] Pantoprazole Sodium (Protonix -) 40 mg PO DAILY [facility] Last Admin: 05/18/18 09:32 Dose: 40 mg - Objective Vital Signs: Vital Signs Temperature 97.8 F 05/18/18 09:29 Pulse Rate 76 05/18/18 09:29 Respiratory Rate 20 05/18/18 09:29 Blood Pressure 126/60 05/18/18 09:29 O2 Sat by Pulse Oximetry (%) 95 05/17/18 21:00 Constitutional: Yes: Calm Eyes: Yes: EOM Intact HENT: Yes: Normocephalic Neck: Yes: Trachea Midline Cardiovascular: Yes: Regular Rate and Rhythm Respiratory: Yes: CTA Bilaterally Gastrointestinal: Yes: Normal Bowel Sounds ...Rectal Exam: Yes: Deferred Musculoskeletal: Yes: WNL Extremities: Yes: WNL Edema: No Neurological: Yes: Alert, Oriented Labs: CBC, BMP 05/17/18 06:40 05/18/18 07:00 INR, PTT INR 1.03 (0.83-1.09) 05/16/18 07:00 Problem List - Problems (1) AUGUSTINE (acute kidney injury) Code(s): N17.9 - ACUTE KIDNEY FAILURE, UNSPECIFIED (2) Diabetes Code(s): E11.9 - TYPE 2 DIABETES MELLITUS WITHOUT COMPLICATIONS Qualifiers: Diabetes mellitus type: type 2 Diabetes mellitus custodial insulin use: without custodial use Diabetes mellitus complication status: with hyperglycemia Qualified Code(s): E11.65 - Type 2 diabetes mellitus with hyperglycemia (3) Hyperglycemia Code(s): R73.9 - HYPERGLYCEMIA, UNSPECIFIED (4) Anemia Code(s): D64.9 - ANEMIA, UNSPECIFIED (5) HLD (hyperlipidemia) Code(s): E78.5 - HYPERLIPIDEMIA, UNSPECIFIED (6) HTN (hypertension) Code(s): I10 - ESSENTIAL (PRIMARY) HYPERTENSION (7) Hip pain, left Code(s): M25.552 - PAIN IN LEFT HIP (8) Hives Code(s): L50.9 - URTICARIA, UNSPECIFIED Assessment/Plan Current Active Problems AUGUSTINE (acute kidney injury) (Acute) Diabetes (Acute) Hyperglycemia (Acute) Abnormal Lab Results 05/18/18 07:00 BUN 96 H Creatinine 5.8 H Random Glucose 210 H Laboratory Results - last 24 hr 05/17/18 05/17/18 05/17/18 12:15 17:36 21:17 Sodium Potassium Chloride Carbon Dioxide Anion Gap BUN Creatinine Creat Clearance w eGFR POC Glucometer 268 115 246 Random Glucose Calcium Total Bilirubin AST ALT Alkaline Phosphatase Total Protein Albumin 05/18/18 05/18/18 05/18/18 06:31 07:00 12:12 Sodium 139 Potassium 3.6 Chloride 105 Carbon Dioxide 21 Anion Gap 13 BUN 96 H Creatinine 5.8 H Creat Clearance w eGFR 7.02 POC Glucometer 196 278 Random Glucose 210 H Calcium 8.7 Total Bilirubin 0.6 AST 17 ALT 27 Alkaline Phosphatase 65 Total Protein 8.1 Albumin 4.1 plan: levemir 25 units am bgm bid novolog bid follow up for dm management hb a1c
--- NOTE | 2018-05-18 13:10 | PN ---
Progress Note, Physician History of Present Illness: Pt seen and examined at bedside. She is awake and alert. She denies shortness of breath. - Current Medication List Current Medications: Active Medications Amlodipine Besylate (Norvasc -) 10 mg PO DAILY [facility] Last Admin: 05/18/18 09:33 Dose: 10 mg Atorvastatin Calcium (Lipitor -) 20 mg PO HS [facility] Last Admin: 05/17/18 21:41 Dose: 20 mg Calcium Acetate (Phoslo -) 667 mg PO TIDCM [facility] Last Admin: 05/18/18 12:26 Dose: 667 mg Cholecalciferol (Vitamin D3 -) 2,000 unit PO DAILY [facility] Last Admin: 05/18/18 09:33 Dose: 2,000 unit Cyanocobalamin (Vitamin B12 -) 2,000 mcg PO DAILY [facility] Last Admin: 05/18/18 09:33 Dose: 2,000 mcg Insulin Aspart (Novolog Vial Sliding Scale -) 1 vial SQ BIDAC [facility]; Protocol Insulin Detemir (Levemir Vial) 25 units SQ AM [facility] Pantoprazole Sodium (Protonix -) 40 mg PO DAILY [facility] Last Admin: 05/18/18 09:32 Dose: 40 mg - Objective Vital Signs: Vital Signs Temperature 97.8 F 05/18/18 09:29 Pulse Rate 76 05/18/18 09:29 Respiratory Rate 20 05/18/18 09:29 Blood Pressure 126/60 05/18/18 09:29 O2 Sat by Pulse Oximetry (%) 95 05/17/18 21:00 Constitutional: Yes: Calm Eyes: Yes: Conjunctiva Clear HENT: Yes: Atraumatic Neck: Yes: Supple Cardiovascular: Yes: S1, S2 Respiratory: Yes: CTA Bilaterally Gastrointestinal: Yes: Soft Genitourinary: Yes: WNL Musculoskeletal: Yes: WNL Edema: No Neurological: Yes: Oriented Psychiatric: Yes: Oriented Labs: CBC, BMP 05/17/18 06:40 05/18/18 07:00 INR, PTT INR 1.03 (0.83-1.09) 05/16/18 07:00 Problem List - Problems (1) AUGUSTINE (acute kidney injury) Code(s): N17.9 - ACUTE KIDNEY FAILURE, UNSPECIFIED (2) Diabetes Code(s): E11.9 - TYPE 2 DIABETES MELLITUS WITHOUT COMPLICATIONS Qualifiers: Diabetes mellitus type: type 2 Diabetes mellitus half-way insulin use: without half-way use Diabetes mellitus complication status: with hyperglycemia Qualified Code(s): E11.65 - Type 2 diabetes mellitus with hyperglycemia (3) Hyperglycemia Code(s): R73.9 - HYPERGLYCEMIA, UNSPECIFIED (4) Anemia Code(s): D64.9 - ANEMIA, UNSPECIFIED (5) HLD (hyperlipidemia) Code(s): E78.5 - HYPERLIPIDEMIA, UNSPECIFIED Assessment/Plan Current Medications Generic Name Dose Route Start Last Admin Trade Name Eric PRN Reason Stop Dose Admin Amlodipine Besylate 10 mg 05/16/18 10:00 05/18/18 09:33 Norvasc - PO 10 mg DAILY [facility] Administration Atorvastatin Calcium 20 mg 05/16/18 22:00 05/17/18 21:41 Lipitor - PO 20 mg HS [facility] Administration Calcium Acetate 667 mg 05/16/18 08:00 05/18/18 12:26 Phoslo - PO 667 mg TIDCM [facility] Administration Cholecalciferol 2,000 unit 05/16/18 10:00 05/18/18 09:33 Vitamin D3 - PO 2,000 unit DAILY [facility] Administration Cyanocobalamin 2,000 mcg 05/17/18 10:00 05/18/18 09:33 Vitamin B12 - PO 2,000 mcg DAILY [facility] Administration Insulin Aspart 1 vial 05/18/18 16:30 Novolog Vial Sliding Scale - SQ BIDAC [facility] Protocol Insulin Detemir 25 units 05/18/18 12:22 Levemir Vial SQ AM [facility] Pantoprazole Sodium 40 mg 05/16/18 10:00 05/18/18 09:32 Protonix - PO 40 mg DAILY [facility] Administration Impression 1. AUGUSTINE 2. hyperglycemia 3. DM 4. HTN 5. anemia 6. HLD 7. elevated kappa and lambda 8. positive andie Plan - renal function continues to improve - discussed kidney biopsy with pt and family, they want to hold off - will need outpt follow up - lambda and kappa chains have to be repeat once renal function improved, oncology saw her on last visit - keep asa on hold for now, was not on it for cardiac or neuro reasons - diabetes/insulin teaching - can see in office next week - hold arb and thiazide
[2018-05-18 15:15] VITALS: BMI 28.3
--- NOTE | 2018-05-18 16:58 | PN ---
Progress Note, Physician Chief Complaint: Hyperglycemia AUGUSTINE History of Present Illness: Previous notes and events reviewed awake and alert NAD complain of constipation - Current Medication List Current Medications: Active Medications Amlodipine Besylate (Norvasc -) 10 mg PO DAILY [facility] Last Admin: 05/18/18 09:33 Dose: 10 mg Atorvastatin Calcium (Lipitor -) 20 mg PO HS [facility] Last Admin: 05/17/18 21:41 Dose: 20 mg Calcium Acetate (Phoslo -) 667 mg PO TIDCM [facility] Last Admin: 05/18/18 12:26 Dose: 667 mg Cholecalciferol (Vitamin D3 -) 2,000 unit PO DAILY [facility] Last Admin: 05/18/18 09:33 Dose: 2,000 unit Cyanocobalamin (Vitamin B12 -) 2,000 mcg PO DAILY [facility] Last Admin: 05/18/18 09:33 Dose: 2,000 mcg Insulin Aspart (Novolog Vial Sliding Scale -) 1 vial SQ BIDAC [facility]; Protocol Insulin Detemir (Levemir Vial) 25 units SQ AM [facility] Pantoprazole Sodium (Protonix -) 40 mg PO DAILY [facility] Last Admin: 05/18/18 09:32 Dose: 40 mg - Objective Vital Signs: Vital Signs Temperature 98.3 F 05/18/18 14:18 Pulse Rate 67 05/18/18 14:18 Respiratory Rate 20 05/18/18 14:18 Blood Pressure 120/62 05/18/18 14:18 O2 Sat by Pulse Oximetry (%) 95 05/17/18 21:00 Constitutional: Yes: No Distress, Calm Eyes: Yes: Conjunctiva Clear HENT: Yes: Atraumatic Cardiovascular: Yes: Regular Rate and Rhythm Respiratory: Yes: Regular, CTA Bilaterally Gastrointestinal: Yes: Normal Bowel Sounds, Soft Musculoskeletal: Yes: WNL Extremities: Yes: WNL Edema: No Neurological: Yes: Alert, Oriented Psychiatric: Yes: Alert, Oriented Labs: CBC, BMP 05/17/18 06:40 05/18/18 07:00 INR, PTT INR 1.03 (0.83-1.09) 05/16/18 07:00 Microbiology 05/15/18 23:00 Urine - Urine Clean Catch Urine Culture - Final NO GROWTH OBTAINED Problem List - Problems (1) AUGUSTINE (acute kidney injury) Assessment/Plan: -renal on board -BUN/Cr 96/5.8 -monitor renal function daily -refused kidney biopsy at this time Code(s): N17.9 - ACUTE KIDNEY FAILURE, UNSPECIFIED (2) Diabetes Assessment/Plan: -levemir -ISS + levemir -BGM ACHS -diabetic diet Code(s): E11.9 - TYPE 2 DIABETES MELLITUS WITHOUT COMPLICATIONS Qualifiers: Diabetes mellitus type: type 2 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
[2018-05-18] MEDS: POLYETHYLENE GLYCOL 3350 119 GM BTL PO SCH (20:40)
[2018-05-18] MEDS: ATORVASTATIN CA 20 MG TABLET (FP) PO SCH (22:06)
[2018-05-19] MEDS: INSULIN SLIDING SCALE (NOVOLOG) 1 VIAL SQ SCH (06:45)
[2018-05-19] MEDS ORDERED: INSULIN (NOVOLOG) ASPART 100 UNITS/ML 10ML VIAL ONE (06:54)
[2018-05-19 07:18] LABS: HEMATOCRIT 27.1 % (32.4-45.2); HEMOGLOBIN 9.5 GM/dL (10.7-15.3); MCH 29.7 pg (25.7-33.7); MCHC 34.8 g/dl (32.0-36.0); MEAN CELL VOLUME 85.3 fl (80-96); MEAN PLT VOLUME 8.8 fl (7.5-11.1); PLATELET COUNT 431 K/MM3 (134-434); RBC 3.18 M/mm3 (3.60-5.2); RDW 15.7 % (11.6-15.6); WHITE BLOOD COUNT 8.4 K/mm3 (4.0-10.0)
[2018-05-19 07:26] VITALS: TEMP 97.9
[2018-05-19 07:31] LABS: ALBUMIN 3.8 g/dl (3.4-5.0); ALK PHOS 59 U/L (45-117); ANION GAP 13 MMOL/L (8-16); BILIRUBIN,TOTAL 0.6 mg/dL (0.2-1); BLOOD UREA NITROGEN 95 mg/dL (7-18); CHLORIDE 106 mmol/L (98-107); CO2 21 mmol/L (21-32); CREATININE 5.6 mg/dL (0.55-1.3); GLUCOSE,RANDOM 213 mg/dL (74-106); POTASSIUM 3.6 mmol/L (3.5-5.1); SGOT/AST 10 U/L (15-37); SGPT/ALT 22 U/L (13-61); SODIUM 140 mmol/L (136-145); TOT PROT 7.4 g/dl (6.4-8.2)
[2018-05-19] MEDS: PANTOPRAZOLE 40 MG TABLET (FP) PO SCH (09:43)
[2018-05-19] MEDS: CYANOCOBALAMIN 1,000 MCG TABLET (FP) PO SCH (09:43)
[2018-05-19] MEDS: CALCIUM ACETATE 667 MG CAPSULE (FP) PO SCH (09:43)
[2018-05-19] MEDS: POLYETHYLENE GLYCOL 3350 119 GM BTL PO SCH (09:43)
[2018-05-19] MEDS: amLODIPine BESYLATE 10 MG TABLET (FP) PO SCH (09:43)
[2018-05-19] MEDS: CHOLECALCIFEROL (VIT D3) 1,000 UNIT (25 MCG) TABLET PO SCH (09:43)
--- NOTE | 2018-05-19 10:22 | DS ---
Physical Examination Vital Signs: Vital Signs Temperature 97.9 F 05/19/18 06:00 Pulse Rate 81 05/19/18 06:00 Respiratory Rate 20 05/19/18 06:00 Blood Pressure 135/66 05/19/18 06:00 O2 Sat by Pulse Oximetry (%) 98 05/18/18 10:05 Cardiovascular: Yes: S1, S2 Respiratory: Yes: Regular, CTA Bilaterally Gastrointestinal: Yes: Normal Bowel Sounds, Soft Labs: CBC, BMP 05/19/18 06:00 05/19/18 06:00 Discharge Summary Reason For Visit: HYPERGLYCEMIA Current Active Problems AUGUSTINE (acute kidney injury) (Acute) Diabetes (Acute) Hyperglycemia (Acute) Hospital Course: - Problems (1) AUGUSTINE (acute kidney injury) Assessment/Plan: -renal on board -BUN/Cr 96/5.8 -monitor renal function daily -refused kidney biopsy at this time Code(s): N17.9 - ACUTE KIDNEY FAILURE, UNSPECIFIED (2) Diabetes Assessment/Plan: -levemir -ISS + levemir -BGM ACHS -diabetic diet Code(s): E11.9 - TYPE 2 DIABETES MELLITUS WITHOUT COMPLICATIONS Qualifiers: Diabetes mellitus type: type 2 Diabetes mellitus 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 insulin use: without shelter use Diabetes mellitus complication status: with hyperglycemia Qualified Code(s): E11.65 - Type 2 diabetes mellitus with hyperglycemia (3) HLD (hyperlipidemia) Assessment/Plan: continue atorvastatin Code(s): E78.5 - HYPERLIPIDEMIA, UNSPECIFIED (4) HTN (hypertension) Assessment/Plan: -continue with amlodipine Code(s): I10 - ESSENTIAL (PRIMARY) HYPERTENSION patient able to test and inject herself Condition: Improved - Instructions Referrals: Yung Bland MD [Primary Care Provider] - Carlos A Escalante MD [Staff Physician] - 1 Week Disposition: HOME - Home Medications Comprehensive Discharge Medication List: Ambulatory Orders Atorvastatin Calcium [Lipitor] 20 mg PO HS 05/02/18 Cholecalciferol (Vitamin D3) [D3-2000] 2,000 unit PO DAILY 05/02/18 Ferrous Sulfate [Feosol] 325 mg PO DAILY 05/02/18 Fluticasone Prop 0.05% Nasal [Flonase -] 1 - 2 spray NS BID 05/02/18 Pantoprazole Sodium [Protonix] 40 mg PO DAILY 03/10/19 Amlodipine Besylate [Norvasc -] 10 mg PO DAILY #30 tablet 05/14/18 Calcium Acetate [Phoslo -] 667 mg PO TIDCM #90 capsule 05/14/18 Cyanocobalamin/Cobamamide [B-12 5,000 Mcg Sublingual Tab] 1 each SL DAILY #30 tab.subl 05/14/18 Insulin (Levemir) [Levemir Vial] 25 units SQ AM #5 syringe 05/19/18
[2018-05-19 12:58] VITALS: BP 146/76; PULSE 80
== END 2018-05-19 11:17 | disposition home or self-care (01) | DRG 637 ==
LOC: JER 20:17 → JERBED 22:49 → OBSVTOIN 23:23 → J5S 05-16 00:45
PROVIDERS: ADMIT Internal Medicine; ATTEND Family Medicine
DX: E11.65 Type 2 diabetes mellitus with hyperglycemia (principal); N17.0 Acute kidney failure with tubular necrosis; E78.5 Hyperlipidemia, unspecified; I10 Essential (primary) hypertension; D64.9 Anemia, unspecified; M25.552 Pain in left hip
CPT/HCPCS: 36415; 71045-TC-FY; 80053; 81003; 82009; 82803; 82962; 83036; 83605; 83735; 84100; 84439; 84443; 85025; 85027; 85610; 85730; 87086; 93005; 93010; 99283-25; G0378; J7030

== ENCOUNTER 2020-04-19 10:31 | Day surgery (SDC) | payer OTHER, BC ==
[~2020-04-19 10:31] MED LIST: LACTATED RINGERS SOLUTION 1,000 ML IV SCH; ONDANSETRON 4 MG/2 ML VIAL IVPUSH PRN; oxyCODONE HCL 5 MG TABLET PO PRN
[2020-04-19 11:34] VITALS: BMI 26.4
[2020-04-19] MEDS ORDERED: PROPOFOL 20 ML ONE ×2 (11:49)
[2020-04-19] MEDS ORDERED: MIDAZOLAM HCL 2 MG/2 ML SINGLE DOSE VIAL ONE (11:49)
[2020-04-19] MEDS ORDERED: ceFAZolin SODIUM 1 GM VIAL IVPB ONE (13:06)
[2020-04-19] MEDS ORDERED: ceFAZolin SODIUM 1 GM VIAL ONE (13:07)
[2020-04-19] MEDS ORDERED: ONDANSETRON 4 MG/2 ML VIAL ONE (13:09)
[2020-04-19] MEDS ORDERED: LIDOCAINE HCL 1%, 10 MG/ML (20ML VIAL) INF ONE (13:16)
[2020-04-19] MEDS ORDERED: BUPIVACAINE HCL/PF 0.5% (5 MG/ML) 30 ML VIAL IJ ONE (13:16)
[2020-04-19 15:26] VITALS: PULSE 72; TEMP 97.8
[2020-04-19 15:48] VITALS: BP 116/78
== END 2020-04-19 15:15 | disposition home or self-care (01) ==
LOC: FASU 10:31
PROVIDERS: ATTEND Orthopaedic Surgery
PROC: 0RBN0ZZ Excision of Right Wrist Joint, Open Approach (ICD-10-PCS; 2020-04-19)
PROC: 01N50ZZ Release Median Nerve, Open Approach (ICD-10-PCS; principal; 2020-04-19 12:00)
DX: G56.01 Carpal tunnel syndrome, right upper limb (principal); M65.88 Other synovitis and tenosynovitis, other site; D64.9 Anemia, unspecified; I12.9 Hypertensive chronic kidney disease with stage 1 through stage 4 chronic kidney disease, or unspecified chronic kidney disease; E11.22 Type 2 diabetes mellitus with diabetic chronic kidney disease; N18.9 Chronic kidney disease, unspecified; Z79.4 Long term (current) use of insulin
CPT/HCPCS: 82962; 88304-TC

== ENCOUNTER 2020-10-03 19:52 | Emergency (ER) | payer OTHER, BC ==
[2020-10-03 20:22] VITALS: BP 124/61; PULSE 77; TEMP 98.3; BMI 29.5
== END 2020-10-03 21:40 | disposition home or self-care (01) ==
LOC: JER 19:52
DX: M25.572 Pain in left ankle and joints of left foot (principal); W01.0XXA Fall on same level from slipping, tripping and stumbling without subsequent striking against object, initial encounter; Y93.01 Activity, walking, marching and hiking; Y92.019 Unspecified place in single-family (private) house as the place of occurrence of the external cause
CPT/HCPCS: 73610-TC-LT-FY; 73630-TC-LT; 99284-25

== ENCOUNTER 2020-10-06 10:31 | Emergency (ER) | payer OTHER, BC ==
[2020-10-06 10:57] VITALS: BP 139/66; PULSE 86; TEMP 98.2; BMI 29.5
[2020-10-06] MEDS ORDERED: METHOCARBAMOL 500 MG TABLET PO ONE (12:14)
[2020-10-06] MEDS ORDERED: LIDOCAINE 5% TOPICAL PATCH TP ONE (12:14)
[2020-10-06] MEDS ORDERED: LIDOCAINE 5% TOPICAL PATCH ONE (12:15)
[2020-10-06] MEDS ORDERED: METHOCARBAMOL 500 MG TABLET ONE (12:15)
[2020-10-06] MEDS ORDERED: KETOROLAC TROMETHAMINE 15 MG/ML VIAL IM ONE (12:19)
[2020-10-06] MEDS ORDERED: KETOROLAC TROMETHAMINE 15 MG/ML VIAL ONE (12:21)
== END 2020-10-06 13:11 | disposition home or self-care (01) ==
LOC: JER 10:31 → JERFT 10:31
PROC: 3E0233Z Introduction of Anti-inflammatory into Muscle, Percutaneous Approach (ICD-10-PCS; principal; 2020-10-06)
DX: M25.552 Pain in left hip (principal); M62.830 Muscle spasm of back; W19.XXXA Unspecified fall, initial encounter; Y92.9 Unspecified place or not applicable
CPT/HCPCS: 73523-TC-FY; 99284-25

== ENCOUNTER 2021-03-04 08:13 | Emergency (ER) | payer OTHER, BC ==
[2021-03-04 09:17] VITALS: BP 159/80; PULSE 92; TEMP 98.4; BMI 29.2
[2021-03-04] MEDS ORDERED: LIDOCAINE 5% TOPICAL PATCH TP ONE (09:39)
[2021-03-04] MEDS ORDERED: ACETAMINOPHEN 325 MG TABLET (FP) PO ONE (09:39)
[2021-03-04] MEDS ORDERED: LIDOCAINE 5% TOPICAL PATCH ONE (10:31)
[2021-03-04] MEDS ORDERED: ACETAMINOPHEN 325 MG TABLET (FP) ONE (10:31)
[2021-03-04 10:33] LABS: EPI CELLS 5 /uL (0-25.1); HYALINE CASTS 0 /uL (0-3.1); URINE APPEARANCE CLEAR; URINE BACTERIA >9,000 /uL (0-1359); URINE BILIRUBIN NEGATIVE (NEGATIVE); URINE COLOR YELLOW; URINE GLUCOSE (UA) NEGATIVE (NEGATIVE); URINE KETONE NEGATIVE (NEGATIVE); URINE LEUK ESTERASE NEGATIVE (NEGATIVE); URINE NITRITE POSITIVE (NEGATIVE); URINE PROTEIN 1+ (NEGATIVE); URINE RBC 5 /uL (0-23.9); URINE UROBILINOGEN 0.2 mg/dL (0.2-1.0); URINE WBC 8 /uL (0-25.8)
[2021-03-04 11:43] LABS: BASO % 0.4 % (0-2.0); EOS % 0.5 % (0-4.5); HEMATOCRIT 33.9 % (32.4-45.2); HEMOGLOBIN 11.5 GM/dL (10.7-15.3); LYMPH % 21.8 % (8-40); MCH 29.9 pg (25.7-33.7); MEAN CELL VOLUME 88.1 fl (80-96); MEAN PLT VOLUME 9.9 fl (7.5-11.1); MONO % 6.1 % (3.8-10.2); NEUT % 71.2 % (42.8-82.8); PLATELET COUNT 431 10^3/uL (134-434); RBC 3.85 M/mm3 (3.60-5.2); RDW 13.5 % (11.6-15.6)
[2021-03-04 11:57] LABS: CHLORIDE 106 mmol/L (98-107); SODIUM 139 mmol/L (136-145)
[2021-03-04 12:00] LABS: ANION GAP 12 MMOL/L (8-16); BLOOD UREA NITROGEN 33.2 mg/dL (7-18); CALCIUM 9.7 mg/dL (8.5-10.1); CO2 21 mmol/L (21-32); GLUCOSE,RANDOM 177 mg/dL (74-106)
[2021-03-04 12:03] LABS: CREATININE 1.5 mg/dL (0.55-1.3); SGOT/AST 13 U/L (15-37); SGPT/ALT 18 U/L (13-61)
[2021-03-04 12:05] LABS: BILIRUBIN,TOTAL 0.6 mg/dL (0.2-1); TOT PROT 8.5 g/dl (6.4-8.2)
[2021-03-04 12:06] LABS: ALK PHOS 64 U/L (45-117)
[2021-03-04] MEDS ORDERED: SODIUM CHLORIDE 0.9% 500 ML INFUS.BAG IV ONE (13:10)
[2021-03-04] MEDS ORDERED: LIDOCAINE PATCH REMOVAL MC SCH (22:00)
== END 2021-03-04 16:17 | disposition home or self-care (01) ==
LOC: JER 08:13
DX: R10.9 Unspecified abdominal pain (principal); N39.0 Urinary tract infection, site not specified
CPT/HCPCS: 36415; 71046-TC-FY; 76775-TC; 80053; 81003; 82550; 84484; 85025; 87086; 87186; 93005; 93010; 99284-25; C9803-CS; U0003; U0005